=== PATIENT | male | born 1935 | race Caucasian/White ===

== ENCOUNTER 2017-02-01 00:18 | Inpatient (IN) | payer OTHER ==
[~2017-02-01] VITALS: Ht 165.1 cm; Wt 75.2 kg
[2017-02-01] VITALS (9 sets, daily range): BP systolic 117–162; BP diastolic 53–87; PULSE 61–91; TEMP 36.3–37.1; O2SAT 91–97; Ht 165.1 cm; Wt 75.2 kg
[~2017-02-01 00:18] MED LIST: AMLO-114 PO; ASPI-461 PO; ATEN50TA PO; ATOR-54 PO; CITA10TA4 PO; CLOP1TAB15 PO; ENAL10TA PO; NITR0.4S UT
[2017-02-01 00:41] LABS: BASO % 0.5 %; BASO ABS # 0.04 K/uL (0-0.2); COMPLETE YES; EOS % 0.7 %; HEMATOCRIT 35.9 % (42-52); IG% 0.2 %; LYMPH ABS # 1.32 K/uL (1.2-3.4); MEAN CELL VOLUME 81.6 fL (80-100); MEAN CORPUSCULAR HEMOGLOBIN 25.2 pg (25-34); MEAN CORPUSCULAR HGB CONC 30.9 g/dl (32-36); MEAN PLATELET VOLUME 9.7 fL (7.4-10.4); MONO % 6.6 %; PLATELET COUNT 192 K/uL (130-400); WHITE BLOOD COUNT 8.24 K/uL (4.8-10.8)
[2017-02-01 00:45] LABS: ISTAT CREATININE 1.2 mg/dl (0.6-1.3); ISTAT HEMOGLOBIN 11.6 g/dl (14.0-18.0); ISTAT IONIZED CALCIUM 1.12 mmol/l (1.12-1.32)
[2017-02-01 00:52] LABS: INR 1.1 (0.9-1.1); PARTIAL THROMBOPLASTIN RATIO 1.1; PROTHROMBIN TIME (PATIENT) 11.9 SECONDS (9.0-12.0)
[2017-02-01] MEDS ORDERED: ONDANSETRON INJ 2 MG/ML 2 ML VIAL IV STA (00:56)
[2017-02-01 00:58] LABS: ALT/SGPT 17 U/L (12-78); AST/SGOT 12 U/L (15-37); BLOOD UREA NITROGEN 23 mg/dl (7-18); BUN/CREATININE RATIO 17.3 (10-20); CALCIUM 8.5 mg/dl (8.5-10.1); CARBON DIOXIDE 25 mmol/L (21-32); CHLORIDE 109 mmol/L (98-107); GLUCOSE 135 mg/dl (70-99); POTASSIUM 3.8 mmol/L (3.5-5.1); SODIUM 147 mmol/L (136-145)
[2017-02-01] MEDS ORDERED: FUROSEMIDE 40 MG/4 ML VIAL IV STA (01:00)
[2017-02-01] MEDS ORDERED: PANTOprazole INJ 80 MG in DEXTROSE 5% 100ML IV SCH (01:00)
[2017-02-01 01:04] LABS: ALKALINE PHOSPHATASE 216 U/L (45-117); CKMB/CK RATIO 0.3 (0-3.0)
[2017-02-01] MEDS ORDERED: FURO-85 PO (01:14)
[2017-02-01] MEDS ORDERED: PANTOprazole INJ 40 MG in DEXTROSE 5% 100ML IV SCH (01:15)
[2017-02-01] MEDS ORDERED: ESCI1TAB6 PO (01:17)
[2017-02-01] MEDS ORDERED: MECL1TAB42 PO (01:19)
[2017-02-01] MEDS ORDERED: ONDANSETRON INJ 2 MG/ML 2 ML VIAL IV PRN (02:00)
[2017-02-01] MEDS ORDERED: ACETAMINOPHEN 325 MG TAB PO PRN (02:00)
[2017-02-01] MEDS ORDERED: MECLIZINE HCL 25 MG TAB PO PRN (02:15)
--- NOTE | 2017-02-01 02:18 | History and Physical ---
History & Physical Date & Time of Service: Feb 01, 2017 at 02:06 Chief Complaint: Chest pain, Nausea/vomiting/stool with blood Primary Care Physician: Karson Alcala M.D. History of Present Illness Source: patient, clinic records 81 year old male with history of CAD s/p CABG in 1990, Atrial Fibrillation on Aspirin and Plavix, history of CVA, Cereberallar Hemorrhage presenting with hematemesis starting this evening. Follows with Dr. Alcala for Primary Care and Dr. Perea for Cardiology. Patient was apparently at his usual state of health until around 1130pm, while preparing to go to bed, patient had a sudden onset of epigastric pain followed by hematemesis, around 1 cup. Ambulance summoned and patient was brought to the ED. Also, he reports at least 1 week history of shortness of breath associated with chest pain on exertion. Denies dizziness, weakness, palpitations. No fever/ chills, coughs, sputum. At the ED, patient was hypoxic at 83% on room air. CXR showed bilateral pulmonary edema. He was given Lasix 40mg IV, and started on Protonix drip. On my exam, patient was resting, comfortable on 2 liters of nasal cannula. Denies active chest pain, dyspnea, nausea, abdominal pain. Had 1 recurrence of hematemesis at the ER. Past Medical/Surgical History Medical Problems: (1) Anxiety Status: Chronic (2) CAD (coronary artery disease) Status: Chronic (3) Carotid artery stenosis Status: Chronic (4) CVA (cerebral vascular accident) Status: Resolved (5) Diabetes Status: Chronic (6) HTN (hypertension) Status: Chronic (7) Hyperlipidemia Status: Chronic Surgical Problems: (1) Hx of CABG Status: Resolved Social History Problems: (1) Former smoker Status: Resolved Family History No significant family history Social History Smoking Status: Former Smoker Drug Use: none Marital Status: Housing status: lives alone Occupational Status: retired Immunizations History of Influenza Vaccine: Yes Influenza Vaccine Date: Sep 30, 2014 History of Tetanus Vaccine?: Yes Tetanus Immunization Date: Jun 26, 2008 History of Pneumococcal: Yes Pneumococcal Date: Sep 25, 2006 Multi-Drug Resistant Organisms History of MDRO: No Allergies Coded Allergies: No Known Allergies (Verified , 07/08/15) Home Medications Scheduled Amlodipine (Norvasc), 10 MG PO QAM Aspirin (Aspirin), 81 MG PO QAM Atenolol (Tenormin), 50 MG PO QAM Atorvastatin (Lipitor), 20 MG PO QAM Clopidogrel (Plavix), 75 MG PO QAM Escitalopram Oxalate (Lexapro), 5 MG PO DAILY Nitroglycerin (Nitrostat), 0.4 MG UT PRN Scheduled PRN Furosemide (Lasix), 20 MG PO DAILY PRN for WIEGHT GAIN,FLUID ACCUMULATION Meclizine Hcl (Meclizine Hcl), 25 MG PO TID PRN for Dizziness or Vertigo Review of Systems Constitutional- no fever; no weight loss Eyes- no acute visual changes ENT- no sinus drainage; no pharyngitis Pulmonary- (+) as noted above Cardiac-(+) as noted above GI-(+) as noted above - no dysuria, no hematuria Musculoskeletal- no arthralgias, no myalgias Derm- no rashes, no new skin lesions, no changing skin lesions Hematologic- no unusual bruising, no unusual bleeding Lymphatics- no adenopathy Endocrine- no polyuria or polydipsia; no heat or cold intolerance Neuro- no headaches, no focal neurologic symptoms Psych- no anxiety, no depression Physical Exam Vital Signs Date Time Temp Pulse Resp B/P Pulse Ox O2 Delivery O2 Flow Rate FiO2 02/01/17 01:32 75 20 143/82 92 Nasal Cannula 3.0 02/01/17 00:40 76 02/01/17 00:28 96 Nasal Cannula 3.0 02/01/17 00:22 37.1 80 20 133/73 83 Room Air 02/01/17 00:22 83 Room Air General Appearance: WD/WN, no apparent distress Head: normocephalic, atraumatic Eyes: normal inspection, EOMI, sclerae normal ENT: normal ENT inspection, hearing grossly normal, pharynx normal Neck: supple, no adenopathy, thyroid normal, + JVD (mild) Respiratory/Chest: chest non-tender, no respiratory distress, no accessory muscle use, + rales (mild at the bases), + wheezing (mild bilaterally) Cardiovascular: + irregularly irregular Abdomen/GI: normal bowel sounds, non tender, soft Extremities/Musculoskelatal: no calf tenderness, normal capillary refill, normal range of motion, + pertinent finding (grade 1 lower leg edema) 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, no motor/sensory deficits, alert, normal mood/affect, normal reflexes, oriented x 3 Skin: normal color, warm/dry, no rash Diagnostics Laboratory Results Results Past 24 Hours Test 02/01/17 00:25 02/01/17 00:27 02/01/17 00:54 02/01/17 02:02 Range/Units White Blood Count 8.24 4.8-10.8 K/uL Red Blood Count 4.40 4.7-6.1 M/uL Hemoglobin 11.1 14.0-18.0 g/dL Hematocrit 35.9 42-52 % Mean Corpuscular Volume 81.6 80-100 fL Mean Corpuscular Hemoglobin 25.2 25-34 pg Mean Corpuscular Hemoglobin Concent 30.9 32-36 g/dl Platelet Count 192 130-400 K/uL Mean Platelet Volume 9.7 7.4-10.4 fL Neutrophils (%) (Auto) 76.0 % Lymphocytes (%) (Auto) 16.0 % Monocytes (%) (Auto) 6.6 % Eosinophils (%) (Auto) 0.7 % Basophils (%) (Auto) 0.5 % Neutrophils # (Auto) 6.26 1.4-6.5 K/uL Lymphocytes # (Auto) 1.32 1.2-3.4 K/uL Monocytes # (Auto) 0.54 0.11-0.59 K/uL Eosinophils # (Auto) 0.06 0-0.5 K/uL Basophils # (Auto) 0.04 0-0.2 K/uL RDW Standard Deviation 52.1 36.4-46.3 fL RDW Coefficient of Variation 17.4 11.5-14.5 % Immature Granulocyte % (Auto) 0.2 % Immature Granulocyte # (Auto) 0.02 0.00-0.02 K/uL Prothrombin Time 11.9 9.0-12.0 SECONDS Prothromb Time International Ratio 1.1 0.9-1.1 Activated Partial Thromboplast Time 27.5 21.0-31.0 SECONDS Partial Thromboplastin Ratio 1.1 Sodium Level 147 136-145 mmol/L Potassium Level 3.8 3.5-5.1 mmol/L Chloride Level 109 98-107 mmol/L Carbon Dioxide Level 25 21-32 mmol/L Anion Gap 13.0 17.0 16-25 mmol/L Blood Urea Nitrogen 23 7-18 mg/dl Creatinine 1.30 0.60-1.40 mg/dl Estimated GFR () 59.3 Estimated GFR (Non- 51.2 BUN/Creatinine Ratio 17.3 10-20 Random Glucose 135 70-99 mg/dl Calcium Level 8.5 8.5-10.1 mg/dl Total Bilirubin 1.1 0.2-1 mg/dl Direct Bilirubin 0.3 0-0.2 mg/dl Aspartate Amino Transf (AST/SGOT) 12 15-37 U/L Alanine Aminotransferase (ALT/SGPT) 17 12-78 U/L Alkaline Phosphatase 216 45-117 U/L Total Creatine Kinase 672 39-308 U/L Creatine Kinase MB 2.1 0.5-3.6 ng/ml Creatine Kinase MB Ratio 0.3 0-3.0 Troponin I < 0.015 0-0.045 ng/ml Total Protein 7.4 6.4-8.2 gm/dl Albumin 3.5 3.4-5.0 gm/dl Lipase 85 73-393 U/L Bedside Hemoglobin 11.6 14.0-18.0 g/dl Bedside Hematocrit 34 42-52 % Bedside Sodium 145 135-144 mEq/L Bedside Potassium 3.8 3.3-5.0 mEq/L Bedside Chloride 108 101-112 mEq/L Bedside Total CO2 25 24-31 mEq/l Bedside Blood Urea Nitrogen 23 7-18 mg/dl Bedside Creatinine 1.2 0.6-1.3 mg/dl Bedside Glucose (other) 143 70-99 mg/dl Bedside Ionized Calcium (Gayle) 1.12 1.12-1.32 mmol/l Bedside Lactic Acid Venous 0.97 0.90-1.70 mmol/L Microbiology Results 02/01/17 Blood Culture, Received Pending 02/01/17 Blood Culture, Received Pending Diagnostic Radiology cxr: bilateral pulmonary edema Impression Assessment and Plan 81 year old male with history of CAD s/p CABG in 1990, Atrial Fibrillation on Aspirin and Plavix, history of CVA, Cereberallar Hemorrhage presenting with hematemesis starting this evening. UPPER GI BLEED - no previous history - on Aspirin, Plavix - NPO, Protonix Drip, monitor H&H q6h no IV fluids as patient has pulmonary edema - GI consulted ACUTE HYPOXIC RESPIRATORY FAILURE SECONDARY TO PULMONARY EDEMA LIKELY CHF - Lasix 40mg IV given at the ER - Echo cardiac markers - nebs - titrate Lasix - Cardiology consulted HISTORY OF ATRIAL FIBRILLATION - not on anticoagulation due to history of cerebellar hemorrhage/CVA - HR controlled - continue Atenolol HISTORY OF CAD - echo, cardiac markers - HOLD Aspirin, Plavix due to GI bleed HYPERTENSION - hold Amlodipine for now HISTORY OF CVA/CEREBELLAR HEMORRHAGE DVT prophylaxis anticoagulation contraindicated SCDs when leg edema improves Code Status Full code as per patient Disposition lives alone at home PT/OT when able VTE Prophylaxis VTE Risk Assessment Done? Y/N: Yes Risk Level: Moderate
[2017-02-01] MEDS ORDERED: LEVALBUTEROL/IPRATROPIUM NEB INH SCH (02:30)
[2017-02-01] MEDS: IPRATROPIUM BROMIDE NEB SOLN 0.02% 2.5 ML VIAL INH SCH ×3 (03:00→19:20)
[2017-02-01] MEDS: LEVALBUTEROL 1.25MG/0.5ML NEB INH SCH ×3 (03:00→19:20)
--- NOTE | 2017-02-01 04:03 | EMERGENCY ROOM VISIT NOTE ---
History Report prepared by Pumaibcynthia: Jordan Pozo Under the Supervision of: Dr. Ottoniel Mccain M.D. First contact with patient: 00:22 Chief Complaint: CHEST PAIN Stated Complaint: Chest pain, Nausea/vomiting/stool with blood History of Present Illness The patient is an 81 year old male who presents to the Emergency Room with complaints of waxing & waning chest pain for the past week. The pain was worse earlier today, and is currently rated 3/10 in severity. The patient also complains of shortness of breath, nausea and vomiting that started tonight. The patient notes that he has had bright red blood in his stools for three weeks. He denies increased swelling of his legs from baseline. The patient had nitroglycerin and aspirin en route to the ED. He has a history of atrial fibrillation for which he is on Plavix. He is s/p CABG in 1990 and had an NSTEMI in 2014. The patient does not normally wear oxygen at home. He denies any recent falls or trauma. Source of History: patient Onset: one week Position: chest Symptom Intensity: 3/10 Timing: waxes/wanes Associated Symptoms: + SOB, + hematochezia, + nausea, + vomiting Review of Systems See HPI for pertinent positives & negatives. A total of 10 systems reviewed and were otherwise negative. Past Medical & Surgical Medical Problems: (1) Anxiety (2) CAD (coronary artery disease) (3) Carotid artery stenosis (4) CHF (congestive heart failure) (5) CVA (cerebral vascular accident) (6) Diabetes (7) HTN (hypertension) (8) Hyperlipidemia Surgical Problems: (1) Hx of CABG Social History Problems: (1) Former smoker Family History No significant family history Social History Smoking Status: Former Smoker Drug Use: none Marital Status: Occupation Status: retired Current/Historical Medications Scheduled Amlodipine (Norvasc), 10 MG PO QAM Aspirin (Aspirin), 81 MG PO QAM Atenolol (Tenormin), 50 MG PO QAM Atorvastatin (Lipitor), 20 MG PO QAM Clopidogrel (Plavix), 75 MG PO QAM Escitalopram Oxalate (Lexapro), 5 MG PO DAILY Nitroglycerin (Nitrostat), 0.4 MG UT PRN Scheduled PRN Furosemide (Lasix), 20 MG PO DAILY PRN for WIEGHT GAIN,FLUID ACCUMULATION Meclizine Hcl (Meclizine Hcl), 25 MG PO TID PRN for Dizziness or Vertigo Allergies Coded Allergies: No Known Allergies (Verified , 07/08/15) Physical Exam Vital Signs Date Time Temp Pulse Resp B/P Pulse Ox O2 Delivery O2 Flow Rate FiO2 02/01/17 01:32 75 20 143/82 92 Nasal Cannula 3.0 02/01/17 00:40 76 02/01/17 00:28 96 Nasal Cannula 3.0 02/01/17 00:22 37.1 80 20 133/73 83 Room Air 02/01/17 00:22 83 Room Air Physical Exam GENERAL: Patient is ill appearing and in minimal distress. HEENT: No acute trauma, normocephalic atraumatic, mucous membranes moist, no nasal congestion, no scleral icterus. Pale conjunctiva. NECK: No stridor, no adenopathy, no meningismus, trachea is midline. LUNGS: Dyspneic, crackles with decreased breath sounds in the bilateral lower lobes, mild wheezing in both upper lobes. HEART: Irregular rhythm with a faint systolic murmur. ABDOMEN: Soft, nontender, bowel sounds positive,no peritonitis. Old scar with a ventral hernia noted. BACK: No midline tenderness, no CVA tenderness EXTREMITIES: Normal motion all extremities, no cyanosis. Pitting edema of the bilateral lower legs. NEUROLOGIC: Alert and oriented, no acute motor or sensory deficits, no focal weakness, cranial nerves grossly intact. SKIN: No rash, no jaundice, no diaphoresis. RECTAL: Black stool heme positive. Medical Decision & Procedures ER Provider Diagnostic Interpretation: X ray results are stated below per my interpretation. CHEST ONE VIEW PORTABLE: Bilateral pulmonary edema with bilateral pleural effusions, new from previous chest X-ray. Laboratory Results 02/01/17 00:25 Red Blood Count 4.40, Mean Corpuscular Volume 81.6, Mean Corpuscular Hemoglobin 25.2, Mean Corpuscular Hemoglobin Concent 30.9, Mean Platelet Volume 9.7, Neutrophils (%) (Auto) 76.0, Lymphocytes (%) (Auto) 16.0, Monocytes (%) (Auto) 6.6, Eosinophils (%) (Auto) 0.7, Basophils (%) (Auto) 0.5, Neutrophils # (Auto) 6.26, Lymphocytes # (Auto) 1.32, Monocytes # (Auto) 0.54, Eosinophils # (Auto) 0.06, Basophils # (Auto) 0.04 02/01/17 00:25 Test 02/01/17 00:25 02/01/17 00:27 02/01/17 00:54 White Blood Count 8.24 K/uL (4.8-10.8) Red Blood Count 4.40 M/uL (4.7-6.1) Hemoglobin 11.1 g/dL (14.0-18.0) Hematocrit 35.9 % (42-52) Mean Corpuscular Volume 81.6 fL (80-100) Mean Corpuscular Hemoglobin 25.2 pg (25-34) Mean Corpuscular Hemoglobin Concent 30.9 g/dl (32-36) Platelet Count 192 K/uL (130-400) Mean Platelet Volume 9.7 fL (7.4-10.4) Neutrophils (%) (Auto) 76.0 % Lymphocytes (%) (Auto) 16.0 % Monocytes (%) (Auto) 6.6 % Eosinophils (%) (Auto) 0.7 % Basophils (%) (Auto) 0.5 % Neutrophils # (Auto) 6.26 K/uL (1.4-6.5) Lymphocytes # (Auto) 1.32 K/uL (1.2-3.4) Monocytes # (Auto) 0.54 K/uL (0.11-0.59) Eosinophils # (Auto) 0.06 K/uL (0-0.5) Basophils # (Auto) 0.04 K/uL (0-0.2) RDW Standard Deviation 52.1 fL (36.4-46.3) RDW Coefficient of Variation 17.4 % (11.5-14.5) Immature Granulocyte % (Auto) 0.2 % Immature Granulocyte # (Auto) 0.02 K/uL (0.00-0.02) Prothrombin Time 11.9 SECONDS (9.0-12.0) Prothromb Time International Ratio 1.1 (0.9-1.1) Activated Partial Thromboplast Time 27.5 SECONDS (21.0-31.0) Partial Thromboplastin Ratio 1.1 Estimated GFR () 59.3 Estimated GFR (Non- 51.2 BUN/Creatinine Ratio 17.3 (10-20) Calcium Level 8.5 mg/dl (8.5-10.1) Total Bilirubin 1.1 mg/dl (0.2-1) Direct Bilirubin 0.3 mg/dl (0-0.2) Aspartate Amino Transf (AST/SGOT) 12 U/L (15-37) Alanine Aminotransferase (ALT/SGPT) 17 U/L (12-78) Alkaline Phosphatase 216 U/L (45-117) Total Creatine Kinase 672 U/L (39-308) Creatine Kinase MB 2.1 ng/ml (0.5-3.6) Creatine Kinase MB Ratio 0.3 (0-3.0) Troponin I < 0.015 ng/ml (0-0.045) Pro-B-Type Natriuretic Peptide 7061 pg/ml (0-1800) Total Protein 7.4 gm/dl (6.4-8.2) Albumin 3.5 gm/dl (3.4-5.0) Lipase 85 U/L (73-393) Bedside Hemoglobin 11.6 g/dl (14.0-18.0) Bedside Hematocrit 34 % (42-52) Bedside Sodium 145 mEq/L (135-144) Bedside Potassium 3.8 mEq/L (3.3-5.0) Bedside Chloride 108 mEq/L (101-112) Bedside Total CO2 25 mEq/l (24-31) Anion Gap 17.0 mmol/L (16-25) Bedside Blood Urea Nitrogen 23 mg/dl (7-18) Bedside Creatinine 1.2 mg/dl (0.6-1.3) Bedside Glucose (other) 143 mg/dl (70-99) Bedside Ionized Calcium (Gayle) 1.12 mmol/l (1.12-1.32) Bedside Lactic Acid Venous 0.97 mmol/L (0.90-1.70) Laboratory results as reviewed by me. Medications Administered Medications (Trade) Dose Ordered Sig/Nathen Route Start Time Stop Time Status Last Admin Dose Admin Pantoprazole Sodium 80 mg/ Dextrose 120 ml @ 480 mls/hr TODAY@0100 IV 02/01/17 01:00 02/01/17 01:14 DC 02/01/17 01:05 480 MLS/HR Pantoprazole Sodium/Dextrose (Protonix Inj/D5 100ml) 100 ml @ 20 mls/hr Q5H IV 02/01/17 01:15 02/01/17 06:14 02/01/17 01:05 20 MLS/HR Ondansetron HCl (Zofran Inj) 4 mg NOW STAT IV 02/01/17 00:56 02/01/17 00:57 DC 02/01/17 01:05 4 MG Furosemide (Lasix Inj) 40 mg NOW STAT IV 02/01/17 01:00 02/01/17 01:01 DC 02/01/17 01:05 40 MG ECG Indication: chest pain Rate (beats per minute): 75 Rhythm: atrial fibrillation Findings: other (very poor baseline secondary to pateint dyspnea. Non-specific ST depressions. No STEMI appreciated.) ED Course 0024: The patient was evaluated in room A12b. A complete history and physical exam was performed. 0056: Zofran 4 mg IV. 0100: Lasix 40 mg IV, Protonix 80 mg / dextrose 120 ml @ 480 mls/hr. 0115: Protonix 40 mg / dextrose 100 mls @ 20 mls/hr. 0125: Spoke with Dr. Osman [facility]. The patient will be evaluated. Medical Decision Differential: Cardiac Ischemia (STEMI, NSTEMI, Unstable Angina, etc), Aortic Dissection, Arrhythmia, Pulmonary Embolism, Pneumonia, Pneumothorax, MSK, Infectious, Pericarditis/Myocarditis, Esophageal Rupture, Gastrointestinal, amongst other pathologies entertained. 81 yr old male arrives for chest pain/sob/generalized weakness. New onset Afib with rate under control. Vomited small amount bloody emesis on arrival with + Gi bleed from below. CXR with pulm edema. 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 Ill appearing though now feeling better. CXR with diffuse pulm edema and effusions. Suspect recent Afib causing acute CHF, leading to hypoxia. Doing well on NC. Lasix given. Suspect stress lead to GI bleed as not acutely anemic thus I do not feel that is cause of CHF. Will start Protonix gtt as this is upper gi source. No clear evidence this is infection, but blood cultures obtained in case. Stable and breathing comfortably at time of bringing in. Consults Time Called: 0120 [facility]: [phone]: Spoke with Dr. Osman [facility] Hospitalist. The patient will be evaluated. Impression Primary Impression: Pulmonary edema Additional Impressions: Hypoxia Pleural effusion Upper GI bleed Atrial fibrillation Scribe Attestation The scribe's documentation has been prepared under my direction and personally reviewed by me in its entirety. I confirm that the note above accurately reflects all work, treatment, procedures, and medical decision making performed by me. Departure Information Dispostion Being Evaluated By Hospitalist Referrals Karson Alcala M.D. (PCP) Patient Instructions My [facility] Problem Qualifiers Primary Impression: Pulmonary edema Chronicity: acute Qualified Codes: J81.0 - Acute pulmonary edema Additional Impressions: Atrial fibrillation Atrial fibrillation type: paroxysmal Qualified Codes: I48.0 - Paroxysmal atrial fibrillation
[2017-02-01] MEDS: PANTOprazole INJ 40 MG in DEXTROSE 5% 100ML IV SCH ×4 (05:40→21:09)
--- NOTE | 2017-02-01 06:48 | DIAGNOSTIC IMAGING REPORT ---
CHEST ONE VIEW PORTABLE CLINICAL HISTORY: Chest Pain dyspnea COMPARISON STUDY: 07/09/2015 FINDINGS: Moderate cardiomegaly. Bilateral pleural effusions. Comment pulmonary vasculature. IMPRESSION: Congestive heart failure Electronically signed by: Keyshawn Unger M.D. 02/01/2017 6:46 AM Dictated Date/Time: 02/01/2017 6:46 AM
[2017-02-01 06:52] LABS: BASO % 0.5 %; BASO ABS # 0.04 K/uL (0-0.2); COMPLETE YES; EOS % 0.1 %; HEMATOCRIT 34.3 % (42-52); IG% 0.1 %; LYMPH % 12.8 %; LYMPH ABS # 1.12 K/uL (1.2-3.4); MEAN CELL VOLUME 82.1 fL (80-100); MEAN CORPUSCULAR HEMOGLOBIN 24.9 pg (25-34); MEAN CORPUSCULAR HGB CONC 30.3 g/dl (32-36); MEAN PLATELET VOLUME 9.4 fL (7.4-10.4); MONO % 13.9 %; NEUT % 72.6 %; PLATELET COUNT 165 K/uL (130-400); RED BLOOD COUNT 4.18 M/uL (4.7-6.1); WHITE BLOOD COUNT 8.73 K/uL (4.8-10.8)
[2017-02-01 07:26] LABS: BLOOD UREA NITROGEN 24 mg/dl (7-18); BUN/CREATININE RATIO 17.4 (10-20); CALCIUM 8.4 mg/dl (8.5-10.1); CARBON DIOXIDE 26 mmol/L (21-32); CHLORIDE 110 mmol/L (98-107); GLUCOSE 118 mg/dl (70-99); MAGNESIUM 2.5 mg/dl (1.8-2.4); POTASSIUM 3.7 mmol/L (3.5-5.1); SODIUM 146 mmol/L (136-145)
[2017-02-01 07:31] LABS: CKMB/CK RATIO 0.3 (0-3.0)
[2017-02-01] MEDS: ESCITALOPRAM OXALATE 10 MG TAB PO SCH (08:15)
--- NOTE | 2017-02-01 10:21 | Gastrointestinal Consultation ---
Gastrointestinal Consultation Date of Consultation: Feb 01, 2017 Attending Physician: Michele Chacon Consulting Physician: Shabbir Watts Reason for Consultation: Hematemesis History of Present Illness Patient is a 81 year old male w PMHx of CAD s/p CABG in 1990, Afib on ASA and Plavix, CVA who presented to ED w c/o hematemesis yesterday evening for about 1 cupful. Pt had been c/o pain in his esophagus x 1 week, epigastric pain, along w SOB and CP on exertion. He also noted associated odynophagia but no dysphagia. He notes some weight loss given his odynophagia. Denies any abd pain , dark tarry stools though he notes intermittent hematochezia which has been present for a while. Upon evaluation in ED, labs showed H/H of 1135. His Hgb had been at 10-12 for since 2014. Last normal Hgb was in 2007 - . He did have another episode of hematemesis in ED but none since then. He had been made NPO, given PPI bolus and gtt. His BNP was noted to be elevated at 7061. CXR showed congestive heart failure. He had been given Lasix 40mg IV on admission. He is currently on O2 4L NC. Pt denies any NSAIDs uses, denies also tobacco or ETOH uses. He never had EGD, reports had colonoscopy >10 yrs ago at [facility] but I did not see this on his records. He would be willing to have EGD evaluation but reluctant to have colonoscopy unless absolutely necessary. Past Medical/Surgical History Medical Problems: (1) Atrial fibrillation Status: Acute (2) Hypoxia Status: Acute (3) Pleural effusion Status: Acute (4) Pulmonary edema Status: Acute (5) Upper GI bleed Status: Acute Past Medical History: See above; carotid artery stenosis, anxiety, DM, HTN, hyperlipidemia Past Surgical History: CABG Family History No significant family history Social History Smoking Status: Former Smoker Alcohol Use: none Drug Use: none Marital Status: Occupation Status: retired Allergies Coded Allergies: No Known Allergies (Verified , 07/08/15) Current Medications Home Meds and Scripts Medications Dose Route/Sig Max Daily Dose Days Date Category Dose Instructions Meclizine Hcl 25 Mg Tab 25 Mg PO TID PRN 02/01/17 Reported Lexapro (Escitalopram Oxalate) 5 Mg Tab 5 Mg PO DAILY 3/9/17 Reported Lasix (Furosemide) 20 Mg Tab 20 Mg PO DAILY PRN 02/01/17 Reported Plavix (Clopidogrel Bisulfate) 75 Mg Tab 75 Mg PO QAM 06/30/15 Reported Norvasc (Amlodipine Besylate) 10 Mg Tab 10 Mg PO QAM 06/30/15 Reported Nitrostat (Nitroglycerin) 0.4 Mg Sub 0.4 Mg UT PRN 12/31/14 Reported NEEDED FOR CHEST PAIN : ONE TAB UNDER THE TONGUE EVRY 5 MINUTES UP TO 3 DOSES. Lipitor (Atorvastatin) 20 Mg Tab 20 Mg PO QAM 12/31/14 Reported Tenormin (Atenolol) 50 Mg Tab 50 Mg PO QAM 12/31/14 Reported Aspirin 81 Mg Tab 81 Mg PO QAM 12/31/14 Reported Review of Systems Constitutional: No chills, No fever ENT: + pain on swallowing, + problem reported, + see HPI, No trouble swallowing Respiratory: + dyspnea on exertion, + shortness of breath, No cough Cardiac: No chest pain, No edema Abdomen: + GI bleeding, + nausea, + pain (epigastric, ), + see HPI, + vomiting Physical Exam Date Time Temp Pulse Resp B/P Pulse Ox O2 Delivery O2 Flow Rate FiO2 02/01/17 08:00 Nasal Cannula 02/01/17 07:54 36.8 76 20 117/71 92 3.0 02/01/17 07:43 91 12 93 Nasal Cannula 3.0 02/01/17 04:00 Nasal Cannula 4.0 02/01/17 03:48 36.3 74 22 146/76 91 Nasal Cannula 4.0 02/01/17 02:45 36.9 79 20 148/87 93 Nasal Cannula 4.0 02/01/17 01:32 75 20 143/82 92 Nasal Cannula 3.0 02/01/17 00:40 76 02/01/17 00:28 96 Nasal Cannula 3.0 02/01/17 00:22 37.1 80 20 133/73 83 Room Air 02/01/17 00:22 83 Room Air General Appearance: WD/WN, no apparent distress Eyes: normal inspection, PERRL, EOMI Neck: supple, no JVD, trachea midline Respiratory/Chest: no respiratory distress, no accessory muscle use, + decreased breath sounds Cardiovascular: regular rate, rhythm, no gallop, no murmur Abdomen: normal bowel sounds, non tender, soft Extremities: normal inspection, no pedal edema, no calf tenderness Neurologic/Psych: alert, normal mood/affect, oriented x 3 Skin: normal color, no jaundice, no rash Laboratory Results Last 24 Hours Test 02/01/17 00:25 02/01/17 00:27 02/01/17 00:54 02/01/17 06:30 White Blood Count 8.24 K/uL 8.73 K/uL Red Blood Count 4.40 M/uL 4.18 M/uL Hemoglobin 11.1 g/dL 10.4 g/dL Hematocrit 35.9 % 34.3 % Mean Corpuscular Volume 81.6 fL 82.1 fL Mean Corpuscular Hemoglobin 25.2 pg 24.9 pg Mean Corpuscular Hemoglobin Concent 30.9 g/dl 30.3 g/dl Platelet Count 192 K/uL 165 K/uL Mean Platelet Volume 9.7 fL 9.4 fL Neutrophils (%) (Auto) 76.0 % 72.6 % Lymphocytes (%) (Auto) 16.0 % 12.8 % Monocytes (%) (Auto) 6.6 % 13.9 % Eosinophils (%) (Auto) 0.7 % 0.1 % Basophils (%) (Auto) 0.5 % 0.5 % Neutrophils # (Auto) 6.26 K/uL 6.34 K/uL Lymphocytes # (Auto) 1.32 K/uL 1.12 K/uL Monocytes # (Auto) 0.54 K/uL 1.21 K/uL Eosinophils # (Auto) 0.06 K/uL 0.01 K/uL Basophils # (Auto) 0.04 K/uL 0.04 K/uL RDW Standard Deviation 52.1 fL 52.7 fL RDW Coefficient of Variation 17.4 % 17.6 % Immature Granulocyte % (Auto) 0.2 % 0.1 % Immature Granulocyte # (Auto) 0.02 K/uL 0.01 K/uL Prothrombin Time 11.9 SECONDS Prothromb Time International Ratio 1.1 Activated Partial Thromboplast Time 27.5 SECONDS Partial Thromboplastin Ratio 1.1 Sodium Level 147 mmol/L 146 mmol/L Potassium Level 3.8 mmol/L 3.7 mmol/L Chloride Level 109 mmol/L 110 mmol/L Carbon Dioxide Level 25 mmol/L 26 mmol/L Anion Gap 13.0 mmol/L 17.0 mmol/L 10.0 mmol/L Blood Urea Nitrogen 23 mg/dl 24 mg/dl Creatinine 1.30 mg/dl 1.40 mg/dl Estimated GFR () 59.3 54.2 Estimated GFR (Non- 51.2 46.8 BUN/Creatinine Ratio 17.3 17.4 Random Glucose 135 mg/dl 118 mg/dl Calcium Level 8.5 mg/dl 8.4 mg/dl Total Bilirubin 1.1 mg/dl Direct Bilirubin 0.3 mg/dl Aspartate Amino Transf (AST/SGOT) 12 U/L Alanine Aminotransferase (ALT/SGPT) 17 U/L Alkaline Phosphatase 216 U/L Total Creatine Kinase 672 U/L 616 U/L Creatine Kinase MB 2.1 ng/ml 2.1 ng/ml Creatine Kinase MB Ratio 0.3 0.3 Troponin I < 0.015 ng/ml < 0.015 ng/ml Pro-B-Type Natriuretic Peptide 7061 pg/ml Total Protein 7.4 gm/dl Albumin 3.5 gm/dl Lipase 85 U/L Bedside Hemoglobin 11.6 g/dl Bedside Hematocrit 34 % Bedside Sodium 145 mEq/L Bedside Potassium 3.8 mEq/L Bedside Chloride 108 mEq/L Bedside Total CO2 25 mEq/l Bedside Blood Urea Nitrogen 23 mg/dl Bedside Creatinine 1.2 mg/dl Bedside Glucose (other) 143 mg/dl Bedside Ionized Calcium (Gayle) 1.12 mmol/l Bedside Lactic Acid Venous 0.97 mmol/L Est Creatinine Clear Calc Drug Dose 39.8 ml/min Magnesium Level 2.5 mg/dl Impression Patient is a 81 year old male currently admitted for CHF and hematemesis. Hgb around 11 which is his baseline since 2014. He had been having pain along his esophagus, epigastric area for a week associated also w odynophagia, nausea but no dysphagia. Plan - OK for CL diet; Keep NPO after midnight for possible EGD tomorrow AM ( awaiting Cards eval and management of CHF). - PPI gtt - Labs ordered to workup anemia - CHF management per primary team & Cardiology. ATTESTATION: I have performed a history and physical examination of this patient and reviewed the electronic record. Specifically, on physical examination there are no rales at present, abdominal examination is benign. I have discussed the case with PAYTON Winters. The above note reflects my findings, conclusions, and recommendations. Shabbir Watts MD
--- NOTE | 2017-02-01 11:12 | Progress Note ---
Medicine Progress Note Date & Time of Visit: Feb 01, 2017 at 10:28. (Mar Delatorre PA-C) Subjective Patient seen and examined. Pt was admitted overnight for UGIB and acute hypoxic resp failure secondary to pulm edema. 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 Reports total approx 5 episodes. Last episode was in ER last night. No further hematemesis. He reports associated burning from epigastrium radiating up the chest for past few days. He reports recent odynophagia, poor appetite, weight loss (unclear amount). He also reports intermittent trace of bright red blood per rectum on toilet tissue x 2 weeks. Last episode 2 days ago with soft formed brown stool. He reports associated generalized weakness and fatigue. Pt reports dry cough for 1 month. He reports increased KELLY x 1 month when walking to get the mail. He was started on furosemide 10 mg daily back in Nov 2016 when c/o SOB/cough/orthopnea and found to have small pleural effusions on CXR. He reports mild BLLE edema unchanged from baseline. He repots ongoing urinary frequency, nocturia every hour during the night, sensation of incomplete bladder emptying. He denies fever , chills, dizziness, syncope, nasal congestion, SOB at rest, orthopnea, diarrhea , constipation. Denies prior hx of GIB. Pt reports remote colonoscopy but unsure of results. Denies prior EGD. (Mar Delatorre PA-C) No episode of hematemesis so far.SOB is gradually improving. No other new systemic symptoms (Michele Chacon MD) Objective Last 8 Hrs Date Time Temp Pulse Resp B/P Pulse Ox O2 Delivery O2 Flow Rate FiO2 02/01/17 08:00 Nasal Cannula 02/01/17 07:54 36.8 76 20 117/71 92 3.0 02/01/17 07:43 91 12 93 Nasal Cannula 3.0 02/01/17 04:00 Nasal Cannula 4.0 02/01/17 03:48 36.3 74 22 146/76 91 Nasal Cannula 4.0 02/01/17 02:45 36.9 79 20 148/87 93 Nasal Cannula 4.0 Physical Exam: General-pleasant alert elderly male, not in distress Eyes-anicteric ENT-pharynx normal Neck-supple, trachea midline, no JVD Lungs-CTA bilaterally, no respiratory distress Heart-RRR, no murmur Abdomen-soft nontender, normal BS Extremities-trace pretibial edema BLLE Neuro-alert and oriented, normal affect, grossly nonfocal Laboratory Results: Last 24 Hours Test 02/01/17 00:25 02/01/17 00:27 02/01/17 00:54 02/01/17 06:30 White Blood Count 8.24 K/uL 8.73 K/uL Red Blood Count 4.40 M/uL 4.18 M/uL Hemoglobin 11.1 g/dL 10.4 g/dL Hematocrit 35.9 % 34.3 % Mean Corpuscular Volume 81.6 fL 82.1 fL Mean Corpuscular Hemoglobin 25.2 pg 24.9 pg Mean Corpuscular Hemoglobin Concent 30.9 g/dl 30.3 g/dl Platelet Count 192 K/uL 165 K/uL Mean Platelet Volume 9.7 fL 9.4 fL Neutrophils (%) (Auto) 76.0 % 72.6 % Lymphocytes (%) (Auto) 16.0 % 12.8 % Monocytes (%) (Auto) 6.6 % 13.9 % Eosinophils (%) (Auto) 0.7 % 0.1 % Basophils (%) (Auto) 0.5 % 0.5 % Neutrophils # (Auto) 6.26 K/uL 6.34 K/uL Lymphocytes # (Auto) 1.32 K/uL 1.12 K/uL Monocytes # (Auto) 0.54 K/uL 1.21 K/uL Eosinophils # (Auto) 0.06 K/uL 0.01 K/uL Basophils # (Auto) 0.04 K/uL 0.04 K/uL RDW Standard Deviation 52.1 fL 52.7 fL RDW Coefficient of Variation 17.4 % 17.6 % Immature Granulocyte % (Auto) 0.2 % 0.1 % Immature Granulocyte # (Auto) 0.02 K/uL 0.01 K/uL Prothrombin Time 11.9 SECONDS Prothromb Time International Ratio 1.1 Activated Partial Thromboplast Time 27.5 SECONDS Partial Thromboplastin Ratio 1.1 Sodium Level 147 mmol/L 146 mmol/L Potassium Level 3.8 mmol/L 3.7 mmol/L Chloride Level 109 mmol/L 110 mmol/L Carbon Dioxide Level 25 mmol/L 26 mmol/L Anion Gap 13.0 mmol/L 17.0 mmol/L 10.0 mmol/L Blood Urea Nitrogen 23 mg/dl 24 mg/dl Creatinine 1.30 mg/dl 1.40 mg/dl Estimated GFR () 59.3 54.2 Estimated GFR (Non- 51.2 46.8 BUN/Creatinine Ratio 17.3 17.4 Random Glucose 135 mg/dl 118 mg/dl Calcium Level 8.5 mg/dl 8.4 mg/dl Total Bilirubin 1.1 mg/dl Direct Bilirubin 0.3 mg/dl Aspartate Amino Transf (AST/SGOT) 12 U/L Alanine Aminotransferase (ALT/SGPT) 17 U/L Alkaline Phosphatase 216 U/L Total Creatine Kinase 672 U/L 616 U/L Creatine Kinase MB 2.1 ng/ml 2.1 ng/ml Creatine Kinase MB Ratio 0.3 0.3 Troponin I < 0.015 ng/ml < 0.015 ng/ml Pro-B-Type Natriuretic Peptide 7061 pg/ml Total Protein 7.4 gm/dl Albumin 3.5 gm/dl Lipase 85 U/L Bedside Hemoglobin 11.6 g/dl Bedside Hematocrit 34 % Bedside Sodium 145 mEq/L Bedside Potassium 3.8 mEq/L Bedside Chloride 108 mEq/L Bedside Total CO2 25 mEq/l Bedside Blood Urea Nitrogen 23 mg/dl Bedside Creatinine 1.2 mg/dl Bedside Glucose (other) 143 mg/dl Bedside Ionized Calcium (Gayle) 1.12 mmol/l Bedside Lactic Acid Venous 0.97 mmol/L Est Creatinine Clear Calc Drug Dose 39.8 ml/min Magnesium Level 2.5 mg/dl Test 02/01/17 10:05 Transferrin % Saturation % Date/Time Source Procedure Growth Status 02/01/17 01:00 Blood Blood Culture Pending Received 02/01/17 00:50 Blood Blood Culture Pending Received (Mar Delatorre PA-C) Assessment & Plan UPPER GI BLEED Hemodynamically stable; Hg 11.1-> 10.4 (baseline Hg approx 11-12) Aspirin and Plavix held On Protonix drip; not on IVF's due to pulmonary edema No further episodes after admission Monitor H/H q6; type and hold 2 units pRBC GI consulted; appreciate input May have clear liquid diet today NPO after midnight for EGD tomorrow ACUTE HYPOXIC RESPIRATORY FAILURE SECONDARY TO PULMONARY EDEMA LIKELY CHF BNP elevated to 7000; CXR showed congestive heart failure Prior echo 12/2014- EF 60-65%, grade I diastolic dysfunction Given dose of Lasix 40mg IV Echo pending Cardiac markers negative x 2 Nebs q6 Cardiology consulted- stable for EGD from cardiac standpoint Monitor daily weight and intake/output NOCTURIA/ FREQUENCY/ INCOMPLETE EMPTYING Check UA and post void bladder scan Mild hyperglycemia noted- check A1c HISTORY OF ATRIAL FIBRILLATION Not on 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 Chacon. Please see his addendum. Current Inpatient Medications: Current Inpatient Medications Medications (Trade) Dose Ordered Sig/Nathen Route Start Time Stop Time Status Last Admin Dose Admin Acetaminophen (Tylenol Tab) 650 mg Q4H PRN PO 02/01/17 02:00 03/03/17 01:59 Ondansetron HCl (Zofran Inj) 4 mg Q6H PRN IV 02/01/17 02:00 03/03/17 01:59 Atenolol (Tenormin Tab) 50 mg QAM PO 02/01/17 09:00 03/03/17 08:59 02/01/17 08:15 50 MG Escitalopram Oxalate (Lexapro Tab) 5 mg DAILY PO 02/01/17 09:00 03/03/17 08:59 02/01/17 08:15 5 MG Meclizine HCl 25 mg 25 mg TID PRN PO 02/01/17 02:15 03/03/17 02:14 Pantoprazole Sodium/Dextrose (Protonix Inj/D5 100ml) 100 ml @ 20 mls/hr Q5H IV 02/01/17 06:00 03/03/17 05:59 02/01/17 05:40 20 MLS/HR Ipratropium [place] (Atrovent 0.02% 0.5MG/2.5ML Neb) 0.5 mg Q6R INH 02/01/17 03:00 03/03/17 02:59 02/01/17 07:43 0.5 MG Levalbuterol (Xopenex 1.25MG/ 0.5ML Neb) 1.25 mg Q6R INH 02/01/17 03:00 03/03/17 02:59 02/01/17 07:43 1.25 MG (Mar Delatorre, KIKE) Continue monitoring H/H every 6 hourly. Type & Cross match for 2 units PRBC so they will be ready if need arises. Continue PPI Cardiology & GI inputs. Michele Chacon MD (Michele Chacon MD)
[2017-02-01 12:31] LABS: FERRITIN 48.2 ng/ml (8.0-388.0)
[2017-02-01 12:51] LABS: URINE APPEARANCE CLOUDY (CLEAR); URINE BILIRUBIN NEG (NEG); URINE COLOR YELLOW; URINE EPITHELIAL CELL AUTO >30 /lpf (0-5); URINE NITRITE NEG (NEG); URINE SPECIFIC GRAVITY 1.011 (1.000-1.030); UROBILINOGEN NEG (NEG); ZZUR CULT IF INDIC CLEAN CATCH NO
[2017-02-01 12:52] LABS: MANUAL MICROSCOPIC REQUIRED? NO; REVIEW REQ? YES
[2017-02-01 12:54] LABS: HEMATOCRIT 33.5 % (42-52)
--- NOTE | 2017-02-01 13:06 | ECHOCARDIOGRAM REPORT ---
*NOTICE TO RECEIVING [employer] This information is strictly Confidential and protected under [place] law. [place] law prohibits you from making any further disclosure of this information unless further disclosure is expressly permitted by the written consent of the person to whom it pertains or is authorized by law. A general authorization for the release of medical or other information is not sufficient for this purpose. Hospital accepts no responsibility if the information is made available to any other person, INCLUDING THE PATIENT. Interpretation Summary * Name: DENISE BRAGA Study Date: 02/01/2017 08:21 AM BP: 117/71 mmHg * Patient Location: C.2T\S\S241\S\2 HR: 67 * : 1935 (M/d/yyy) Gender: Male Height: 65 in * Age: 81 yrs Ethnicity: CA Weight: 172 lb * Ordering Physician: Rell Osman * Referring Physician: Self, Referred * Performed By: Deepika Awad RCS * * Reason For Study: R/O CHF * BSA: 1.9 m2 * -- Conclusions -- * The left ventricle is normal in size. * There is moderate concentric left ventricular hypertrophy. * The left ventricular wall motion is normal. * Ejection Fraction = 65-70%. * The left atrium is moderately dilated. * The right atrium is moderately dilated. * There is moderate to severe mitral regurgitation. * There is moderate to severe tricuspid regurgitation. * Right ventricular systolic pressure is elevated at 40-50mmHg. Procedure Details * A complete two-dimensional transthoracic echocardiogram was performed (2D, M-mode, Doppler and color flow Doppler). Left Ventricle * The left ventricle is normal in size. * There is moderate concentric left ventricular hypertrophy. * Left ventricular systolic function is normal. * Ejection Fraction = 65-70%. * The left ventricular wall motion is normal. Right Ventricle * The right ventricle is mildly dilated. * The right ventricular systolic function is normal. Atria * The left atrium is moderately dilated. * The right atrium is moderately dilated. * No ASD detected; PFO is not assessed. Mitral Valve * There is mild mitral annular calcification. * There is no mitral valve stenosis. * There is moderate to severe mitral regurgitation. Tricuspid Valve * The tricuspid valve anatomy is normal. * There is no tricuspid stenosis. * There is moderate to severe tricuspid regurgitation. * Right ventricular systolic pressure is elevated at 40-50mmHg. Aortic Valve * The aortic valve is trileaflet. * Aortic valve sclerosis moderate, without significant aortic valvular stenosis. * No hemodynamically significant valvular aortic stenosis. * No aortic regurgitation is present. Pulmonic Valve * The pulmonic valve is not well visualized. Great Vessels * The aortic root is normal size. Pericardium/Pleural * There is no pericardial effusion. Right Ventricle * The right ventricular wall motion is normal. Great Vessels * Normal inferior vena cava diameter and respiratory variation suggests normal central venous pressure. MMode 2D Measurements and Calculations IVSd 1.6 cm IVSs 2.0 cm LVIDd 4.0 cm LVIDs 2.5 cm LVPWd 1.6 cm LVPWs 1.5 cm IVS/LVPW 0.98 FS 37.0 % EDV(Teich) 70.2 ml ESV(Teich) 22.9 ml EF(Teich) 67.4 % EDV(cubed) 64.3 ml ESV(cubed) 16.1 ml EF(cubed) 74.9 % % IVS thick 26.5 % % LVPW thick -5.49 % LV mass(C)d 251.6 grams LV mass(C)dI 135.6 grams/m\S\2 LV mass(C)s 166.7 grams LV mass(C)sI 89.9 grams/m\S\2 SV(Teich) 47.3 ml SI(Teich) 25.5 ml/m\S\2 SV(cubed) 48.2 ml SI(cubed) 26.0 ml/m\S\2 LVOT diam 2.1 cm LVOT area 3.3 cm\S\2 LVAd ap4 26.4 cm\S\2 LVLd ap4 7.5 cm EDV(MOD-sp4) 73.2 ml EDV(sp4-el) 78.6 ml LVAs ap4 14.5 cm\S\2 LVLs ap4 5.7 cm ESV(MOD-sp4) 30.3 ml ESV(sp4-el) 31.5 ml EF(MOD-sp4) 58.7 % EF(sp4-el) 59.9 % LVAd ap2 30.7 cm\S\2 LVLd ap2 7.5 cm EDV(MOD-sp2) 105.1 ml EDV(sp2-el) 106.7 ml LVAs ap2 20.4 cm\S\2 LVLs ap2 6.6 cm ESV(MOD-sp2) 52.4 ml ESV(sp2-el) 54.0 ml EF(MOD-sp2) 50.1 % EF(sp2-el) 49.4 % LVLd %diff -0.20 % EDV(MOD-bp) 89.8 ml LVLs %diff 13.3 % ESV(MOD-bp) 41.4 ml EF(MOD-bp) 53.9 % SV(MOD-sp4) 42.9 ml SI(MOD-sp4) 23.1 ml/m\S\2 SV(MOD-sp2) 52.7 ml SI(MOD-sp2) 28.4 ml/m\S\2 SV(MOD-bp) 48.4 ml SI(MOD-bp) 26.1 ml/m\S\2 SV(sp4-el) 47.1 ml SI(sp4-el) 25.4 ml/m\S\2 SV(sp2-el) 52.7 ml SI(sp2-el) 28.4 ml/m\S\2 Doppler Measurements and Calculations MV E max sonya 130.5 cm/sec MV A max sonya 39.3 cm/sec MV E/A 3.3 MV P1/2t max sonya 127.6 cm/sec MV P1/2t 81.5 msec MVA(P1/2t) 2.7 cm\S\2 MV dec slope 458.7 cm/sec\S\2 MV dec time 0.20 sec Ao V2 max 168.7 cm/sec Ao max PG 11.4 mmHg Ao max PG (full) 7.0 mmHg JULIO C(V,A) 2.1 cm\S\2 JULIO C(V,D) 2.1 cm\S\2 LV V1 max PG 4.4 mmHg LV V1 max 104.8 cm/sec MR max sonya 442.7 cm/sec MR max PG 78.4 mmHg TR max sonya 321.0 cm/sec
[2017-02-01 13:29] LABS: CKMB/CK RATIO 0.5 (0-3.0)
[2017-02-01 13:30] LABS: ESTIMATED AVERAGE GLUCOSE 137 mg/dl; HA1C FLAG Normal (Normal)
--- NOTE | 2017-02-01 15:22 | CARDIOLOGY CONSULTATION ---
DATE OF CONSULTATION: 02/01/2017 DATE OF CONSULTATION: 02/01/2017. REFERRING: Mar Delatorre and Dr. Chacon. PRIMARY CARE PHYSICIAN: Dr. Alcala. INDICATIONS: Hematemesis and possible GI bleed, preprocedure evaluation, history of complex cardiac disease. HISTORY OF PRESENT ILLNESS: The patient is an 81-year-old male. His past medical history is notable for ischemic heart disease, status post coronary bypass grafting x3 in 1990, history of stable class 2 angina pectoris with past non-ST segment elevation myocardial infarction in December 2014 with medical management since and stable clinical history. He carries a history of as well for atherosclerotic peripheral vascular disease and is status post abdominal aortic aneurysm repair in 1998, history of right carotid endarterectomy in 2001, left carotid endarterectomy in June 2015 uncomplicated. He carries a history of past remote intracranial hemorrhage 1998 with slowed but intact mentation, history of hypertension, hyperlipidemia. The patient presents today noting approximately 1 week's history of burning sensation from epigastrium up to the throat with difficulty swallowing, eating and poor p.o. intake. On day of admission he had worsening symptoms of pain and discomfort followed by hematemesis, approximately 1 cup of bloody secretions. He subsequently presented for further evaluation. His underlying issues include preserved LV systolic function with moderate mitral and tricuspid insufficiency with recent symptoms of volume overload and mild congestive heart failure. He denies any pain other than as described burning and postprandial discomfort. Notes no syncope or near syncope. He was treated for an upper respiratory infection as well as had diuretics increased in November of 2016. Blood pressure has been controlled. He remains chronically in atrial fibrillation. He has not been anticoagulated due to past history of bleeding issues and marked gait instability. In the past he has been on MARTIN inhibitor although this was discontinued at one point in time due to transient renal insufficiency and hypotension. ALLERGIES: None. MEDICATIONS: Prior to hospitalization were amlodipine 10 mg q.a.m., aspirin 81 mg p.o. q.a.m., atenolol 50 mg q.a.m., atorvastatin 20 mg q.p.m., clopidogrel 75 mg q.a.m., Lexapro 5 mg q.p.m., furosemide 20 mg p.r.n. weight gain, fluid accumulation, meclizine p.r.n., nitroglycerin sublingual p.r.n. PAST SURGICAL HISTORY: As per HPI, is notable for remote coronary artery bypass grafting x3, bilateral carotid endarterectomy and abdominal aortic aneurysm repair in 1998. FAMILY HISTORY: Noncontributory. SOCIAL HISTORY: The patient is currently a resident of an extended care facility. He is a nonsmoker, nondrinker. PHYSICAL EXAMINATION: GENERAL: The patient is currently comfortable, was seen earlier with symptoms of severe abdominal and epigastric pain, now resolved. VITAL SIGNS: Heart rate is 60, blood pressure is 130/76. NECK: Thick. There is minimal jugular venous distention at 30 degrees. Overall skin pallor is present. LUNGS: Reveal mildly diminished breath sounds at the bases. CARDIOVASCULAR EXAMINATION: Irregularly irregular. Grade 1/6 systolic murmur. There is no diastolic murmur. ABDOMEN: Soft with mild tenderness in the epigastric region. EXTREMITIES: Without cyanosis or clubbing. There is trace pedal edema. DATA: Echocardiogram demonstrates moderate left ventricular hypertrophy with preserved LV systolic function, EF 65-70%. There is moderate to severe mitral and tricuspid insufficiency with indirect evidence of elevated pulmonary pressures. EKG reveals atrial fibrillation with poor tracing. No acute ST segment changes. LABORATORY STUDIES: On presentation, hemoglobin was 11.1, this morning is 10.2, platelet count 165. Sodium is 146, potassium is 3.7, chloride 110, bicarb 25, BUN is 24, creatinine is 1.4, glucose is 118. Troponins are negative x2 with elevated CPK. BNP is elevated at 7061. IMPRESSION: Complex 81-year-old male with underlying history of ischemic heart disease and prior remote coronary bypass grafting, stable class 2 angina pectoris, chronic atrial fibrillation, not on anticoagulation due to past concerns regarding bleeding and gait instability. He has suffered remote history of cerebral hemorrhage, presents now with epigastric and abdominal pain and hematemesis. Chest x-ray does demonstrate some increase in vascular markings consistent with congestive heart failure. Echocardiogram demonstrates preserved LV systolic function with moderate to severe mitral and tricuspid insufficiency. RECOMMENDATIONS: The patient received 40 mg IV metoprolol on presentation with historically good diuresis, though not documented. Will plan on using opportunity of inpatient management to switch to optimal medical therapies, discontinuing atenolol beginning on Toprol-XL 50 mg per day, reducing amlodipine to 5 mg per day and reinstituting low dose MARTIN inhibitor with lisinopril at 5 mg per day. Will follow patient as clinical course progresses and GI workup is completed. Would recommend proceeding to upper endoscopy as planned. Will review patient in the morning.
[2017-02-01 19:01] LABS: HEMATOCRIT 33.8 % (42-52)
[2017-02-02] VITALS (14 sets, daily range): BP systolic 123–165; BP diastolic 66–79; PULSE 52–78; TEMP 36.6–37.1; O2SAT 84–97
[2017-02-02 00:49] LABS: HEMATOCRIT 33.9 % (42-52)
[2017-02-02] MEDS: LEVALBUTEROL 1.25MG/0.5ML NEB INH SCH ×4 (02:10→19:38)
[2017-02-02] MEDS: IPRATROPIUM BROMIDE NEB SOLN 0.02% 2.5 ML VIAL INH SCH ×4 (02:10→19:38)
[2017-02-02] MEDS: PANTOprazole INJ 40 MG in DEXTROSE 5% 100ML IV SCH ×2 (02:43→07:51)
[2017-02-02 07:13] LABS: BASO % 0.9 %; BASO ABS # 0.06 K/uL (0-0.2); COMPLETE YES; EOS % 2.2 %; HEMATOCRIT 35.2 % (42-52); IG% 0.4 %; LYMPH % 24.8 %; LYMPH ABS # 1.66 K/uL (1.2-3.4); MEAN CELL VOLUME 82.1 fL (80-100); MEAN CORPUSCULAR HEMOGLOBIN 25.2 pg (25-34); MEAN CORPUSCULAR HGB CONC 30.7 g/dl (32-36); MEAN PLATELET VOLUME 9.7 fL (7.4-10.4); MONO % 12.8 %; NEUT % 58.9 %; PLATELET COUNT 165 K/uL (130-400); RED BLOOD COUNT 4.29 M/uL (4.7-6.1)
[2017-02-02 07:40] LABS: BUN/CREATININE RATIO 15.3 (10-20); CALCIUM 8.8 mg/dl (8.5-10.1); CREATININE 1.6 mg/dl (0.60-1.40); MAGNESIUM 2.5 mg/dl (1.8-2.4); POTASSIUM 3.8 mmol/L (3.5-5.1)
[2017-02-02] MEDS: METOPROLOL SUCC 50MG EXT REL TAB PO SCH (07:52)
[2017-02-02] MEDS: ESCITALOPRAM OXALATE 10 MG TAB PO SCH (07:52)
[2017-02-02] MEDS ORDERED: FUROSEMIDE INJ 20 MG in SYRINGE 0 ML IV SCH ×2 (09:00→14:00)
--- NOTE | 2017-02-02 09:33 | DIAGNOSTIC IMAGING REPORT ---
CHEST ONE VIEW PORTABLE CLINICAL HISTORY: Follow up CHF congestive failure COMPARISON STUDY: 02/01/2017 FINDINGS: Unchanged findings of congestive failure. Bilateral pleural effusions. IMPRESSION: Congestive failure unchanged from the prior study Electronically signed by: Keyshawn Unger M.D. 02/02/2017 9:32 AM Dictated Date/Time: 02/02/2017 9:31 AM
[2017-02-02] MEDS ORDERED: LIDOCAINE HCL 2% 2 ML VIAL (20MG/ML) ONE (10:41)
[2017-02-02] MEDS ORDERED: PROPOFOL IV EMULSION 10 MG/ML 20 ML VIAL IV ONE (10:41)
--- NOTE | 2017-02-02 10:43 | Progress Note ---
Medicine Progress Note Date & Time of Visit: Feb 02, 2017 at 10:05. (Mar Delatorre PA-C) Subjective Patient seen and examined. He states epigastric/ chest discomfort is resolved. No further episodes of hematemesis. No bowel movements in the hospital. He is not feeling SOB currently but has KELLY when ambulating to restroom. Still feels generally weak. No dizziness. States he is voiding well. Overnight patient got OOB and stated he was leaving the hospital. He was able to be redirected. On my exam he is aware and agreeable to treatment plan. This morning his O2 sat dropped to 84% while he was on room air after pulling off his oxygen. He is now saturating 92% on 2 liters. (Mar Delatorre PA-C) Patient is doing well. Lying in his bed comfortably. Noted above. Denies any chest pain/pressure. (Michele Chacon MD) Objective Last 8 Hrs Date Time Temp Pulse Resp B/P Pulse Ox O2 Delivery O2 Flow Rate FiO2 02/02/17 09:34 92 Nasal Cannula 2.0 02/02/17 08:10 36.6 78 18 165/79 97 02/02/17 08:00 Nasal Cannula 3.0 02/02/17 07:31 78 18 84 Nasal Cannula 4.0 02/02/17 04:12 36.7 69 28 132/66 93 Nasal Cannula 4.0 02/02/17 04:00 Nasal Cannula 3.0 Physical Exam: General-pleasant alert elderly male, not in distress Eyes-anicteric Neck-supple, trachea midline Lungs-CTA bilaterally, no respiratory distress Heart-irregularly irregular, no murmur Abdomen-soft nontender, normal BS Extremities-trace ankle edema BLLE Neuro-alert and oriented, normal affect, grossly nonfocal Laboratory Results: Last 24 Hours Test 02/01/17 11:47 02/01/17 12:20 02/01/17 12:35 02/01/17 18:54 Iron Level 27 mcg/dl Total Iron Binding Capacity 417 mcg/dl Transferrin 255 mg/dl Transferrin % Saturation 8 % Ferritin 48.2 ng/ml Vitamin B12 Level 756 pg/mL Folate 14.54 ng/mL Urine Color YELLOW Urine Appearance CLOUDY Urine pH 5.0 Urine Specific [place] 1.011 Urine Protein 3+ Urine Glucose (UA) NEG Urine Ketones NEG Urine Occult Blood NEG Urine Nitrite NEG Urine Bilirubin NEG Urine Urobilinogen NEG Urine Leukocyte Esterase TRACE Urine WBC (Auto) 1-5 /hpf Urine RBC (Auto) 0-4 /hpf Urine Hyaline Casts (Auto) 10-30 /lpf Urine Epithelial Cells (Auto) >30 /lpf Urine Bacteria (Auto) NEG Urine Pathogenic Casts /lpf Hemoglobin 10.2 g/dL 10.3 g/dL Hematocrit 33.5 % 33.8 % Estimated Average Glucose 137 mg/dl Hemoglobin A1c 6.4 % Total Creatine Kinase 605 U/L Creatine Kinase MB 2.9 ng/ml Creatine Kinase MB Ratio 0.5 Troponin I 0.015 ng/ml Test 02/02/17 00:26 02/02/17 06:55 Hemoglobin 10.3 g/dL 10.8 g/dL Hematocrit 33.9 % 35.2 % White Blood Count 6.70 K/uL Red Blood Count 4.29 M/uL Mean Corpuscular Volume 82.1 fL Mean Corpuscular Hemoglobin 25.2 pg Mean Corpuscular Hemoglobin Concent 30.7 g/dl Platelet Count 165 K/uL Mean Platelet Volume 9.7 fL Neutrophils (%) (Auto) 58.9 % Lymphocytes (%) (Auto) 24.8 % Monocytes (%) (Auto) 12.8 % Eosinophils (%) (Auto) 2.2 % Basophils (%) (Auto) 0.9 % Neutrophils # (Auto) 3.94 K/uL Lymphocytes # (Auto) 1.66 K/uL Monocytes # (Auto) 0.86 K/uL Eosinophils # (Auto) 0.15 K/uL Basophils # (Auto) 0.06 K/uL RDW Standard Deviation 52.6 fL RDW Coefficient of Variation 17.5 % Immature Granulocyte % (Auto) 0.4 % Immature Granulocyte # (Auto) 0.03 K/uL Sodium Level 144 mmol/L Potassium Level 3.8 mmol/L Chloride Level 109 mmol/L Carbon Dioxide Level 22 mmol/L Anion Gap 13.0 mmol/L Blood Urea Nitrogen 25 mg/dl Creatinine 1.60 mg/dl Est Creatinine Clear Calc Drug Dose 34.8 ml/min Estimated GFR () 46.1 Estimated GFR (Non- 39.8 BUN/Creatinine Ratio 15.3 Random Glucose 101 mg/dl Calcium Level 8.8 mg/dl Magnesium Level 2.5 mg/dl (Mar Delatorre PA-C) Assessment & Plan UPPER GI BLEED Hemodynamically stable; Hg trended from 11.1-> 10's and remains stable in 10's ( baseline Hg approx 11-12) Aspirin and Plavix held On Protonix drip; not on IVF's due to pulmonary edema No further GI bleeding after admission Reduce H/H monitoring to q8 Type and hold 2 units pRBC GI consulted; appreciate input EGD cancelled today due to respiratory status as per anesthesiology after discussing with Dr. Watts Resume clear liquid diet ACUTE HYPOXIC RESPIRATORY FAILURE SECONDARY TO PULMONARY EDEMA LIKELY CHF BNP elevated to 7000; CXR showed congestive heart failure; repeat CXR 02/02 shows unchanged CHF Echo- The left ventricle is normal in size. There is moderate concentric left ventricular hypertrophy. The left ventricular wall motion is normal. Ejection Fraction = 65-70%. The left atrium is moderately dilated. The right atrium is moderately dilated. There is moderate to severe mitral regurgitation. There is moderate to severe tricuspid regurgitation. Right ventricular systolic pressure is elevated at 40-50mmHg. Cardiac markers negative x 3 On IV Lasix 20 mg daily Nebs q6 Cardiology consulted; appreciate input; Monitor daily weight and intake/output Continues to require oxygen 2-4 liters May need 2 step prior to discharge IVAN Creat increased from 1.3 to 1.6 Likely secondary to diuresis Monitor renal function ATRIAL FIBRILLATION Not on anticoagulation due to h/o cerebellar hemorrhage/CVA Rate controlled Changed from atenolol to metoprolol succinate HYPERTENSION Amlodipine on hold for now Changed from atenolol to metoprolol succinate As per cardiology plan is to reduce amlodipine to 5 mg per day and restart low dose MARTIN-I with lisinopril 5 mg daily HISTORY OF CAD ASA and Plavix on hold for GIB Continue beta nuris HISTORY OF CVA/CEREBELLAR HEMORRHAGE NOCTURIA/ FREQUENCY Check UA- no significant abnormality Post void bladder scan WNL A1c = 6.4 DVT PROPHYLAXIS No pharmacological anticoagulation due to GIB SCD's ordered FULL CODE Per admitting provider's discussion with patient DISPOSITION Follows with Dr. Alcala for primary care Lives independently at [facility] PT/OT ordered for tomorrow/ once medically stable Patient seen in collaboration with Dr. Chacon. Please see his addendum. Current Inpatient Medications: Current Inpatient Medications Medications (Trade) Dose Ordered Sig/Nathen Route Start Time Stop Time Status Last Admin Dose Admin Acetaminophen (Tylenol Tab) 650 mg Q4H PRN PO 02/01/17 02:00 03/03/17 01:59 Ondansetron HCl (Zofran Inj) 4 mg Q6H PRN IV 02/01/17 02:00 03/03/17 01:59 Escitalopram Oxalate (Lexapro Tab) 5 mg DAILY PO 02/01/17 09:00 03/03/17 08:59 02/02/17 07:52 5 MG Meclizine HCl 25 mg 25 mg TID PRN PO 02/01/17 02:15 03/03/17 02:14 Pantoprazole Sodium/Dextrose (Protonix Inj/D5 100ml) 100 ml @ 20 mls/hr Q5H IV 02/01/17 06:00 03/03/17 05:59 02/02/17 07:51 20 MLS/HR Ipratropium [place] (Atrovent 0.02% 0.5MG/2.5ML Neb) 0.5 mg Q6R INH 02/01/17 03:00 03/03/17 02:59 02/02/17 07:31 0.5 MG Levalbuterol (Xopenex 1.25MG/ 0.5ML Neb) 1.25 mg Q6R INH 02/01/17 03:00 03/03/17 02:59 02/02/17 07:31 1.25 MG Metoprolol Succinate 50 mg 50 mg QAM PO 02/02/17 09:00 03/04/17 08:59 02/02/17 07:52 50 MG Furosemide/Syringe (Lasix Inj/ Syringe) 2 ml @ 4 mls/min DAILY@0900 IV 02/02/17 09:00 03/04/17 08:59 02/02/17 07:52 4 MLS/MIN (Mar Delatorre PA-C) Clinically & hemodynamically doing well. H/H has been stable and is close to baseline. EGD has been cancelled due to hypoxemia. Started feeding and will advance gradually. Michele Chacon MD (Michele Chacon MD)
[2017-02-02] MEDS ORDERED: AMLODIPINE BESYLATE 5 MG TAB PO ONE (11:19)
[2017-02-02] MEDS: NITROGLYCERIN OINT 2% 1GM PACKET EXT SCH ×2 (11:55→17:58)
[2017-02-02] MEDS ORDERED: FERROUS SULFATE 325 MG TAB PO ONE (12:05)
--- NOTE | 2017-02-02 12:05 | Progress Note ---
Progress Note Date of Service Feb 02, 2017. Progress Note Patient is a 81 year old male currently admitted for CHF and hematemesis. Hgb around 11 which is his baseline since 2014. He had been having pain along his esophagus, epigastric area for a week associated also w odynophagia, nausea but no dysphagia. He was scheduled to undergo EGD today. However had O2 desaturation to 84% while on O2 2L NC when he got out of bed. Case cancelled by anesthesia. - Will start Ferrous Sulfate 325mg BID PO - Change Protonix to 40mg IV BID - If still admitted, will re-eval on Sunday for possible EGD next week. If he's DC'd will contact our schedulers to make outpt EGD appt
--- NOTE | 2017-02-02 12:09 | CARDIOLOGY PROGRESS NOTE ---
DATE: 02/02/2017 DATE: 02/02/2017. The patient seen and examined. Chart, medications, telemetry reviewed. SUBJECTIVE: The patient feels well this morning. Notes abdominal pain and burning has improved. Notes no worsening shortness of breath, dizziness, lightheadedness, syncope or near syncope. Had minimal diuresis overnight. OBJECTIVE: VITAL SIGNS: Heart rate is 78, blood pressure is 165/79. NECK: Neck is thick. There is no distinct jugular venous distension with neck veins appearing flat at 30 degrees. LUNGS: Reveal diminished breath sounds at the bases, but are predominantly clear at the apices. CARDIOVASCULAR EXAMINATION: Irregular, irregular. There is no S3 gallop. ABDOMEN: Soft. EXTREMITIES: Without cyanosis or clubbing. There is no peripheral edema. LABORATORY STUDIES: Sodium is 144, potassium is 3.8, chloride is 109, bicarbonate 22, BUN is 25, creatinine is increased to 1.6 from baseline 1.3. Chest x-ray reveals improved interstitial changes though lagging behind physical examination. O2 saturations 92% on 2 liters nasal cannula. IMPRESSION: An 81-year-old male with underlying history of ischemic heart disease with stable class 2 angina pectoris. No recent anginal symptoms, but presents with symptoms consistent with severe epigastric pain and discomfort with postprandial complaints hematemesis. Symptoms have improved since holding antiplatelet therapies and beginning IV Protonix. Chest x-ray has demonstrated congestive heart failure on presentation though clinical examination is not significantly volume overloaded. Chest x-ray is improving this morning but lagging with physical examination. PLAN: The patient was scheduled for EGD today but has been canceled due to concerns regarding x-ray. Topical nitrates will be added for blood pressure control. Single additional dose of IV metoprolol will be given this afternoon, though again exam is not profoundly volume overloaded. Will continue change in medical therapies, specifically metoprolol succinate for atenolol. If renal function stabilizes, would consider adding low dose lisinopril to regimen, though will restart amlodipine today at 5 mg per day.
--- NOTE | 2017-02-02 12:20 | Clinical Documentation Query ---
QUERY 1 OF [address] TRINIDAD, In your clinical opinion is this patient being managed for: ( X ) Acute on chronic diastolic (congestive) heart failure ( ) Other explanation of clinical findings (Please Explain) ( ) Unable to determine (Please Define) ( ) Need to Discuss ( ) Not Agree The medical record reflects the following clinical findings, treatment, and risk factors. Clinical Indicators:81 yo male presenting intermittent chest pain x 1 week. BNP 7061, CXR showed CHF. ECHO showed EF 65-70%. Treatment: IV lasix, O2 support, tele, cardiology consult, ECHO, toprol xl Risk Factors: age, hx CHF, A fib, HTN, NSTEMI QUERY 2 OF 2 In your clinical opinion is this patient being managed for: (x ) CKD stage II ( ) Other explanation of clinical findings (Please Explain) ( ) Unable to determine (Please Define) ( ) Need to Discuss ( ) Not Agree The medical record reflects the following clinical findings, treatment, and risk factors. Clinical Indicators: Review of GFR showed baseline of 68-70 from 2015. Currently 39.8-51.2 Treatment:serial PRP's, chronic disease management Risk Factors: age, Afib, HTN, CAD Please clarify and document your clinical opinion in the progress notes and discharge summary. Terms such as "probable", "suspected", "likely", "questionable", "possible", or "still to be ruled out" are acceptable. IF IN AGREEMENT, YOU MUST DOCUMENT ABOVE DIAGNOSTIC STATEMENT IN DAILY PROGRESS NOTES AND DISCHARGE SUMMARY. This document is not part of the patient's record. Thank You, Ann-Marie Hughes, RN [phone]
--- NOTE | 2017-02-02 12:27 | Anesthesiology Progress Note ---
Anesthesia Progress Note Date of Service Feb 02, 2017. Progress Notes The patient is an 81 y/o male with a h/o CAD s/p MA 2014, stable class 2 angina, CAD s/p CABG 1990, CHF, Afib, AAA repair, carotid disease s/p B CEA, valvular disease and intracranial hemorrhage who was admitted yesterday with CHF and acute hypoxic respiratory failure secondary to pulmonary edema. The patient was scheduled for EGD today as he has been complaining of esophageal and epigastric pain as well as hematemesis. Hemoglobin today was 10.8 and his baseline has been near 11 since 2014. He has had no further episodes of hematemesis. The patient was brought down to the GI holding area and evaluated. The patient was initially only saturating 85% on 2l NC when he arrived. His 02 was increased to 4L NC and his oxygen saturation improved to 94-95%. The patient stated that he has been more short of breath since admission and was short of breath just ambulating to the bathroom overnight. Normally he states he can walk about 100 yards. On exam, the patient had bilateral rales at the bases with overall decreased breath sounds some mild wheezing. His heart had irregular rate and rhythm. His BMP on admission was 7061 and his CXR from today continues to pulmonary edema secondary to heart failure. I spoke to Dr. Watts regarding my concern that giving this patient even minimal anesthesia for this procedure could make him more profoundly hypoxic. Dr. Watts agreed that the risk of doing the procedure given the patient's multiple comorbidities including current CHF would outweigh the benefit as the patient's hemoglobin is currently stable and near baseline. Furthermore, he stated that the patient is already being appropriately treated for his GI symptoms and that the treatment would not change despite performing the EGD today.
[2017-02-02 14:46] LABS: HEMATOCRIT 34.5 % (42-52)
[2017-02-02] MEDS: FERROUS SULFATE 325 MG TAB PO SCH ×2 (20:59→21:00)
[2017-02-02] MEDS: PANTOprazole INJ 40 MG in SYRINGE 0 ML IV SCH (21:00)
[2017-02-02 22:07] LABS: HEMATOCRIT 33.3 % (42-52)
[2017-02-03] VITALS (10 sets, daily range): BP systolic 108–144; BP diastolic 63–86; PULSE 63–73; TEMP 36.4–37; O2SAT 89–95
[2017-02-03] MEDS: NITROGLYCERIN OINT 2% 1GM PACKET EXT SCH ×4 (00:21→18:07)
[2017-02-03] MEDS: IPRATROPIUM BROMIDE NEB SOLN 0.02% 2.5 ML VIAL INH SCH ×3 (01:53→14:54)
[2017-02-03] MEDS: LEVALBUTEROL 1.25MG/0.5ML NEB INH SCH ×3 (01:54→14:54)
[2017-02-03 07:38] LABS: BASO % 0.6 %; BASO ABS # 0.04 K/uL (0-0.2); COMPLETE YES; EOS % 4.3 %; IG% 0.2 %; LYMPH ABS # 1.14 K/uL (1.2-3.4); MEAN CORPUSCULAR HEMOGLOBIN 24.6 pg (25-34); MEAN PLATELET VOLUME 9.5 fL (7.4-10.4); MONO % 10.9 %; PLATELET COUNT 164 K/uL (130-400); RED BLOOD COUNT 4.27 M/uL (4.7-6.1); WHITE BLOOD COUNT 6.32 K/uL (4.8-10.8)
[2017-02-03 08:06] LABS: BUN/CREATININE RATIO 16.6 (10-20); CALCIUM 8.3 mg/dl (8.5-10.1); CREATININE 1.4 mg/dl (0.60-1.40); MAGNESIUM 2.2 mg/dl (1.8-2.4); POTASSIUM 3.6 mmol/L (3.5-5.1)
[2017-02-03] MEDS: METOPROLOL SUCC 50MG EXT REL TAB PO SCH (08:38)
[2017-02-03] MEDS: ESCITALOPRAM OXALATE 10 MG TAB PO SCH (08:38)
[2017-02-03] MEDS: AMLODIPINE BESYLATE 5 MG TAB PO SCH (08:38)
[2017-02-03] MEDS: FERROUS SULFATE 325 MG TAB PO SCH ×2 (08:39→21:33)
[2017-02-03] MEDS: PANTOprazole INJ 40 MG in SYRINGE 0 ML IV SCH ×2 (08:39→21:33)
[2017-02-03] MEDS ORDERED: FUROSEMIDE INJ 20 MG in SYRINGE 0 ML IV SCH (09:45)
--- NOTE | 2017-02-03 11:29 | Cardiology Follow-Up ---
Subjective Subjective Date of Service: Feb 03, 2017. Pt evaluation today including: conversation w/ patient, physical exam, chart review, lab review, review of studies, review of inpatient medication list Additional Details: Pt seen and examined, oob in chair. States that he's feeling well, abdominal/ chest discomfort resolved. No sign of active bleeding. Denies sob, palpitation, lightheadedness or dizziness. Problem List Medical Problems: (1) Atrial fibrillation Status: Acute (2) Hypoxia Status: Acute (3) Pleural effusion Status: Acute (4) Pulmonary edema Status: Acute (5) Upper GI bleed Status: Acute Review of Systems Constitutional: No chills, No fever Respiratory: No cough, No dyspnea at rest, No dyspnea on exertion, No hemoptysis, No problem reported, No see HPI, No shortness of breath, No sputum, No wheezing Cardiac: No PND, No chest pain, No claudication, No edema, No orthopnea, No palpitations, No problem reported, No see HPI Objective Vital Signs Last Vital Signs Documentation Date Time Temp Pulse Resp B/P Pulse Ox O2 Delivery O2 Flow Rate FiO2 02/03/17 07:56 36.4 69 20 139/75 93 Nasal Cannula 3.0 Physical Exam: General Appearance: WD/WN, no apparent distress Eyes: bilateral eyes EOMI, bilateral eyes PERRL, bilateral eyes normal inspection ENT: normal ENT inspection, pharynx normal, + pertinent finding (hard of hearing) Neck: supple, no adenopathy, thyroid normal, no JVD, no carotid bruits, trachea midline Respiratory/Chest: chest non-tender, lungs clear, normal breath sounds, no respiratory distress, no accessory muscle use Cardiovascular: no edema, no JVD, + irregularly irregular Abdomen: normal bowel sounds, non tender, soft, no organomegaly, no pulsatile mass Extremities: normal inspection, no pedal edema, no calf tenderness Neurologic/Psychiatric: 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 acute decompensated systolic heart failure does not examine as volume overloaded EGD held will give additional dose of IV lasix today check chest xray in AM 2. afib new onset rate controlled obviously not an anticoagulation candidate at this time in the setting of presumed upper gi bleed 3. 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 PAD will need to restart asa and plavix
--- NOTE | 2017-02-03 16:35 | Progress Note ---
Internal Med Progress Note Date of Service: Feb 03, 2017. Provider Documentation: SUBJECTIVE: Patient is sitting in his bed in no apparent distress. Denies any chest pain/ pressure, SOB or palpitations. Tolerating oral intake so far. OBJECTIVE: Vital Signs-as noted below Examination: General-pleasant alert elderly male, not in distress Eyes-anicteric ENT: Ears, Nose & Throat are normal looking. Is hard of hearing. Neck-Supple, trachea midline Lungs-B/L Moderate air entry, Clear to auscultation Heart-irregularly irregular, no murmur Abdomen-soft nontender, normal BS Extremities-trace ankle edema BLLE Neuro-alert and oriented, normal affect, grossly nonfocal Lab data as noted below. ASSESSMENT & PLAN: Echocardiogram The left ventricle is normal in size. There is moderate concentric left ventricular hypertrophy. The left ventricular wall motion is normal. Ejection Fraction = 65-70%. The left atrium is moderately dilated. The right atrium is moderately dilated. There is moderate to severe mitral regurgitation. There is moderate to severe tricuspid regurgitation. Right ventricular systolic pressure is elevated at 40-50mmHg. Upper GI Bleed: Hemodynamically stable; Hg trended from 11.1-> 10's and remains stable in 10's (baseline Hg approx 11-12) Aspirin and Plavix held. No further GI bleeding after admission -Continue Protonix. -H/H has been stable. -Type and hold 2 units pRBC -GI consulted; appreciate input -EGD cancelled today due to respiratory status as per anesthesiology after discussing with Dr. Watts. May do as outpatient. -Resume clear liquid diet Acute Exacerbation of Chronic Diastolic CHF: Clinically improving. BNP elevated to 7000; CXR showed congestive heart failure; repeat CXR 02/02 shows unchanged CHF -Cardiac markers negative x 3 -Continue Lasix -Monitoring I's & O's. -Cardiology consulted; appreciate input; -Monitor daily weight -Continues to require oxygen 2-4 liters -May need 2 step prior to discharge CKD Stage II: Creatinine above baseline which can be the result of CHF exacerbation as well. -Monitoring GFR -Avoid any Nephrotoxin History Atrial Fibrillation: Rate is controlled. Not on anticoagulation due to h /o cerebellar hemorrhage/CVA -Changed from atenolol to metoprolol succinate Hypertension:Monitoring BP closely. -Amlodipine on hold for now -Changed from atenolol to metoprolol succinate As per cardiology plan is to reduce amlodipine to 5 mg per day and restart low dose MARTIN-I with lisinopril 5 mg daily History CAD: ASA and Plavix on hold for GIB -Continue beta nuris History CVA/Cerebellar hemorrhage: Stable. Nocturnal Frequency: UA is normal.?? Prostate -Post void bladder scan WNL -HbA1c = 6.4 DVT Prophylaxis: No pharmacological anticoagulation due to GIB SCD's ordered Code Status: FULL CODE Per admitting provider's discussion with patient Disposition: Discharge once is clinically stable. Follows with Dr. Alcala for primary care Lives independently at [facility] PT/OT ordered for tomorrow/ once medically stable Vital Signs: Date Time Temp Pulse Resp B/P Pulse Ox O2 Delivery O2 Flow Rate FiO2 02/03/17 15:06 36.6 65 19 124/72 91 Nasal Cannula 2.0 02/03/17 14:55 63 14 89 Room Air 02/03/17 12:01 93 Nasal Cannula 3.0 02/03/17 11:41 36.7 68 19 124/71 94 Nasal Cannula 3.0 02/03/17 08:00 93 Nasal Cannula 3.0 02/03/17 07:56 36.4 69 20 139/75 93 Nasal Cannula 3.0 02/03/17 07:21 69 14 93 Nasal Cannula 2.0 02/03/17 04:00 Nasal Cannula 3.0 02/03/17 03:21 36.4 65 23 144/86 93 Nasal Cannula 3.0 02/03/17 00:00 Nasal Cannula 3.0 02/02/17 23:38 36.6 67 22 123/73 97 Nasal Cannula 3.0 02/02/17 20:23 96 Nasal Cannula 2.0 02/02/17 20:00 96 Nasal Cannula 2.0 02/02/17 19:40 36.7 68 20 156/76 96 Nasal Cannula 2.0 02/02/17 19:38 67 14 92 Nasal Cannula 2.0 Lab Results: Results Past 24 Hours Test 02/02/17 22:00 02/03/17 06:58 Range/Units Hemoglobin 10.2 10.5 14.0-18.0 g/dL Hematocrit 33.3 35.0 42-52 % White Blood Count 6.32 4.8-10.8 K/uL Red Blood Count 4.27 4.7-6.1 M/uL Mean Corpuscular Volume 82.0 80-100 fL Mean Corpuscular Hemoglobin 24.6 25-34 pg Mean Corpuscular Hemoglobin Concent 30.0 32-36 g/dl Platelet Count 164 130-400 K/uL Mean Platelet Volume 9.5 7.4-10.4 fL Neutrophils (%) (Auto) 66.0 % Lymphocytes (%) (Auto) 18.0 % Monocytes (%) (Auto) 10.9 % Eosinophils (%) (Auto) 4.3 % Basophils (%) (Auto) 0.6 % Neutrophils # (Auto) 4.17 1.4-6.5 K/uL Lymphocytes # (Auto) 1.14 1.2-3.4 K/uL Monocytes # (Auto) 0.69 0.11-0.59 K/uL Eosinophils # (Auto) 0.27 0-0.5 K/uL Basophils # (Auto) 0.04 0-0.2 K/uL RDW Standard Deviation 51.3 36.4-46.3 fL RDW Coefficient of Variation 17.1 11.5-14.5 % Immature Granulocyte % (Auto) 0.2 % Immature Granulocyte # (Auto) 0.01 0.00-0.02 K/uL Sodium Level 144 136-145 mmol/L Potassium Level 3.6 3.5-5.1 mmol/L Chloride Level 108 98-107 mmol/L Carbon Dioxide Level 26 21-32 mmol/L Anion Gap 10.0 3-11 mmol/L Blood Urea Nitrogen 23 7-18 mg/dl Creatinine 1.40 0.60-1.40 mg/dl Est Creatinine Clear Calc Drug Dose 39.8 ml/min Estimated GFR () 54.2 Estimated GFR (Non- 46.8 BUN/Creatinine Ratio 16.6 10-20 Random Glucose 80 70-99 mg/dl Calcium Level 8.3 8.5-10.1 mg/dl Magnesium Level 2.2 1.8-2.4 mg/dl
[2017-02-03] MEDS ORDERED: IPRATROPIUM BROMIDE NEB SOLN 0.02% 2.5 ML VIAL INH PRN (17:00)
[2017-02-03] MEDS ORDERED: LEVALBUTEROL 1.25MG/0.5ML NEB INH PRN (17:00)
[2017-02-03] MEDS: LEValbuterol HFA 15GM INHALER INH SCH (21:00)
[2017-02-03] MEDS: IPRATROPIUM BROMIDE HFA INHALER INH SCH (21:00)
[2017-02-04] MEDS: IPRATROPIUM BROMIDE HFA INHALER INH SCH ×6 (03:07→21:00)
[2017-02-04] MEDS: LEValbuterol HFA 15GM INHALER INH SCH ×6 (03:07→21:00)
[2017-02-04 03:11] VITALS: BP 136/70; PULSE 79; TEMP 36.7; O2SAT 94
[2017-02-04] MEDS: NITROGLYCERIN OINT 2% 1GM PACKET EXT SCH ×5 (06:05→23:35)
[2017-02-04 07:02] LABS: BASO % 0.4 %; BASO ABS # 0.03 K/uL (0-0.2); COMPLETE YES; EOS % 3.6 %; HEMATOCRIT 34.9 % (42-52); IG% 0.1 %; LYMPH % 18.5 %; MEAN CORPUSCULAR HEMOGLOBIN 25.1 pg (25-34); MEAN CORPUSCULAR HGB CONC 30.9 g/dl (32-36); MEAN PLATELET VOLUME 9.8 fL (7.4-10.4); MONO % 11.8 %; NEUT % 65.6 %; PLATELET COUNT 166 K/uL (130-400); RED BLOOD COUNT 4.31 M/uL (4.7-6.1); WHITE BLOOD COUNT 7.03 K/uL (4.8-10.8)
[2017-02-04 07:34] LABS: BUN/CREATININE RATIO 17.2 (10-20); CALCIUM 8.5 mg/dl (8.5-10.1); CREATININE 1.3 mg/dl (0.60-1.40); MAGNESIUM 2.2 mg/dl (1.8-2.4); POTASSIUM 3.7 mmol/L (3.5-5.1)
[2017-02-04 07:56] VITALS: BP 149/79; PULSE 80; TEMP 36.5; O2SAT 94
[2017-02-04] MEDS: ESCITALOPRAM OXALATE 10 MG TAB PO SCH (08:24)
[2017-02-04] MEDS: AMLODIPINE BESYLATE 5 MG TAB PO SCH (08:24)
[2017-02-04] MEDS: METOPROLOL SUCC 50MG EXT REL TAB PO SCH (08:24)
[2017-02-04] MEDS: FERROUS SULFATE 325 MG TAB PO SCH ×2 (08:24→20:58)
[2017-02-04] MEDS: PANTOprazole INJ 40 MG in SYRINGE 0 ML IV SCH (08:25)
--- NOTE | 2017-02-04 08:57 | DIAGNOSTIC IMAGING REPORT ---
TWO VIEW CHEST CLINICAL HISTORY: Dyspnea. FINDINGS: PA and lateral chest radiographs are compared to study dated 02/02/2017. The patient is status post midline sternotomy. The heart is enlarged and there is atherosclerotic calcification of the thoracic aorta. Pulmonary vascular congestion has almost completely resolved. There are layering pleural effusions with bibasilar consolidation. There is no pneumothorax. The skeletal structures are osteopenic. Degenerative change is present throughout the thoracic spine. IMPRESSION: 1. Cardiomegaly with mild pulmonary vascular congestion. This has improved from yesterday. 2. Layering pleural effusions and bibasilar consolidation. Electronically signed by: Lan Kerr M.D. 02/04/2017 8:55 AM Dictated Date/Time: 02/04/2017 8:54 AM
[2017-02-04] MEDS ORDERED: POTASSIUM CHLORIDE 10 MEQ TABCR PO STA (10:55)
[2017-02-04] MEDS ORDERED: FUROSEMIDE INJ 40 MG in SYRINGE 0 ML IV SCH (11:15)
[2017-02-04 12:08] VITALS: BP 159/79; PULSE 68; TEMP 36.5; O2SAT 92
--- NOTE | 2017-02-04 13:15 | Cardiology Follow-Up ---
Subjective Subjective Date of Service: Feb 04, 2017. Pt evaluation today including: conversation w/ patient, physical exam, chart review, lab review, review of studies, review of inpatient medication list Additional Details: Pt seen and examined, states that he feels well. Denies cp, sob, palpitations, lightheadedness or dizziness. Tele reviewed: atrial fibrillation, rate controlled Problem List Medical Problems: (1) Atrial fibrillation Status: Acute (2) Hypoxia Status: Acute (3) Pleural effusion Status: Acute (4) Pulmonary edema Status: Acute (5) Upper GI bleed Status: Acute Review of Systems Constitutional: No chills, No fever Respiratory: No cough, No dyspnea at rest, No dyspnea on exertion, No hemoptysis, No problem reported, No see HPI, No shortness of breath, No sputum, No wheezing Cardiac: No PND, No chest pain, No claudication, No edema, No orthopnea, No palpitations, No problem reported, No see HPI Objective Vital Signs Last Vital Signs Documentation Date Time Temp Pulse Resp B/P Pulse Ox O2 Delivery O2 Flow Rate FiO2 02/04/17 12:08 36.5 68 19 159/79 92 Nasal Cannula 2.0 Physical Exam: General Appearance: WD/WN, no apparent distress Eyes: bilateral eyes EOMI, bilateral eyes PERRL, bilateral eyes normal inspection ENT: normal ENT inspection, pharynx normal, + pertinent finding (hard of hearing) Neck: supple, no adenopathy, thyroid normal, no JVD, no carotid bruits, trachea midline Respiratory/Chest: chest non-tender, lungs clear, normal breath sounds, no respiratory distress, no accessory muscle use Cardiovascular: no edema, no JVD, + irregularly irregular Abdomen: normal bowel sounds, non tender, soft, no organomegaly, no pulsatile mass Extremities: normal inspection, no pedal edema, no calf tenderness 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 acute decompensated systolic heart failure does not examine as volume overloaded EGD held chest xray shows improvement will give one last dose of IV lasix now with KCl 2. afib new onset rate controlled obviously not an anticoagulation candidate at this time in the setting of presumed upper gi bleed 3. 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 PAD will need to restart asa and plavix
[2017-02-04 15:12] VITALS: BP 156/88; PULSE 72; TEMP 36.6; O2SAT 93
--- NOTE | 2017-02-04 17:03 | Progress Note ---
Internal Med Progress Note Date of Service: Feb 04, 2017. Provider Documentation: SUBJECTIVE: Patient is sitting in his bed in no apparent distress. Denies any chest pain/ pressure, SOB or palpitations. Tolerating oral intake so far. Denies any new change or [id number]. OBJECTIVE: Vital Signs-as noted below Examination: General-pleasant alert elderly male, not in distress Eyes-anicteric ENT: Ears, Nose & Throat are normal looking. Is hard of hearing. Neck-Supple, trachea midline Lungs-B/L Moderate air entry, Clear to auscultation Heart-irregularly irregular, no murmur Abdomen-soft nontender, normal BS Extremities-trace ankle edema BLLE Neuro-alert and oriented, normal affect, grossly nonfocal Lab data as noted below. ASSESSMENT & PLAN: Echocardiogram The left ventricle is normal in size. There is moderate concentric left ventricular hypertrophy. The left ventricular wall motion is normal. Ejection Fraction = 65-70%. The left atrium is moderately dilated. The right atrium is moderately dilated. There is moderate to severe mitral regurgitation. There is moderate to severe tricuspid regurgitation. Right ventricular systolic pressure is elevated at 40-50mmHg. Upper GI Bleed: Hemodynamically stable; Hg trended from 11.1-> 10's and remains stable in 10's (baseline Hg approx 11-12) Aspirin and Plavix held. No further GI bleeding after admission -Continue Protonix. -H/H has been stable. -Type and hold 2 units pRBC -GI consulted; appreciate input -EGD cancelled today due to respiratory status as per anesthesiology after discussing with Dr. Watts. May do as outpatient. -Resumed diet Acute Exacerbation of Chronic Diastolic CHF: Clinically improving. BNP elevated to 7000; CXR showed congestive heart failure; repeat CXR 02/02 shows unchanged CHF -Cardiac markers negative x 3 -Continue Lasix -Monitoring I's & O's. -Cardiology consulted; appreciate input; -Monitor daily weight -Continues to require oxygen 2-4 liters -May need 2 step prior to discharge CKD Stage II: Creatinine above baseline which can be the result of CHF exacerbation as well. -Monitoring GFR -Avoid any Nephrotoxin History Atrial Fibrillation: Rate is controlled. Not on anticoagulation due to h /o cerebellar hemorrhage/CVA -Changed from atenolol to metoprolol succinate Hypertension:Monitoring BP closely. -Amlodipine on hold for now -Changed from atenolol to metoprolol succinate As per cardiology plan is to reduce amlodipine to 5 mg per day and restart low dose MARTIN-I with lisinopril 5 mg daily History CAD: ASA and Plavix on hold for GIB -Continue beta nuris History CVA/Cerebellar hemorrhage: Stable. Nocturnal Frequency: UA is normal.?? Prostate -Post void bladder scan WNL -HbA1c = 6.4 DVT Prophylaxis: No pharmacological anticoagulation due to GIB SCD's ordered Code Status: FULL CODE Per admitting provider's discussion with patient Disposition: Discharge once is clinically stable. Follows with Dr. Alcala for primary care Lives independently at [facility] PT/OT ordered for tomorrow/ once medically stable Vital Signs: Date Time Temp Pulse Resp B/P Pulse Ox O2 Delivery O2 Flow Rate FiO2 02/04/17 15:12 36.6 72 20 156/88 93 Nasal Cannula 2.0 02/04/17 12:08 36.5 68 19 159/79 92 Nasal Cannula 2.0 02/04/17 12:00 Nasal Cannula 2.0 02/04/17 08:00 Nasal Cannula 2.0 02/04/17 07:56 36.5 80 19 149/79 94 Nasal Cannula 2.0 02/04/17 04:00 Nasal Cannula 2.0 02/04/17 03:11 36.7 79 19 136/70 94 Nasal Cannula 2.0 02/04/17 00:02 Nasal Cannula 2.0 02/03/17 23:58 36.4 73 20 144/78 95 Nasal Cannula 2.0 02/03/17 20:00 Nasal Cannula 2.0 02/03/17 18:56 37.0 70 19 108/63 91 Nasal Cannula 2.0 Lab Results: Results Past 24 Hours Test 02/04/17 06:33 Range/Units White Blood Count 7.03 4.8-10.8 K/uL Red Blood Count 4.31 4.7-6.1 M/uL Hemoglobin 10.8 14.0-18.0 g/dL Hematocrit 34.9 42-52 % Mean Corpuscular Volume 81.0 80-100 fL Mean Corpuscular Hemoglobin 25.1 25-34 pg Mean Corpuscular Hemoglobin Concent 30.9 32-36 g/dl Platelet Count 166 130-400 K/uL Mean Platelet Volume 9.8 7.4-10.4 fL Neutrophils (%) (Auto) 65.6 % Lymphocytes (%) (Auto) 18.5 % Monocytes (%) (Auto) 11.8 % Eosinophils (%) (Auto) 3.6 % Basophils (%) (Auto) 0.4 % Neutrophils # (Auto) 4.61 1.4-6.5 K/uL Lymphocytes # (Auto) 1.30 1.2-3.4 K/uL Monocytes # (Auto) 0.83 0.11-0.59 K/uL Eosinophils # (Auto) 0.25 0-0.5 K/uL Basophils # (Auto) 0.03 0-0.2 K/uL RDW Standard Deviation 50.8 36.4-46.3 fL RDW Coefficient of Variation 17.0 11.5-14.5 % Immature Granulocyte % (Auto) 0.1 % Immature Granulocyte # (Auto) 0.01 0.00-0.02 K/uL Sodium Level 145 136-145 mmol/L Potassium Level 3.7 3.5-5.1 mmol/L Chloride Level 107 98-107 mmol/L Carbon Dioxide Level 28 21-32 mmol/L Anion Gap 10.0 3-11 mmol/L Blood Urea Nitrogen 22 7-18 mg/dl Creatinine 1.30 0.60-1.40 mg/dl Est Creatinine Clear Calc Drug Dose 43.3 ml/min Estimated GFR () 59.3 Estimated GFR (Non- 51.2 BUN/Creatinine Ratio 17.2 10-20 Random Glucose 100 70-99 mg/dl Calcium Level 8.5 8.5-10.1 mg/dl Magnesium Level 2.2 1.8-2.4 mg/dl Pro-B-Type Natriuretic Peptide 7974 0-1800 pg/ml
[2017-02-04 19:21] VITALS: BP 138/82; PULSE 78; TEMP 37; O2SAT 92
[2017-02-04] MEDS: PANTOprazole SOD 40 MG TAB PO SCH (20:58)
[2017-02-04 22:48] VITALS: BP 142/81; PULSE 76; TEMP 36.6; O2SAT 92
[2017-02-05] VITALS (11 sets, daily range): BP systolic 138–177; BP diastolic 75–98; PULSE 80–98; TEMP 36.5–37; O2SAT 86–97
[2017-02-05] MEDS: IPRATROPIUM BROMIDE HFA INHALER INH SCH ×4 (03:00→20:51)
[2017-02-05] MEDS: LEValbuterol HFA 15GM INHALER INH SCH ×4 (03:00→20:51)
[2017-02-05] MEDS: NITROGLYCERIN OINT 2% 1GM PACKET EXT SCH ×4 (06:09→23:31)
[2017-02-05 06:40] LABS: BASO % 0.5 %; BASO ABS # 0.03 K/uL (0-0.2); COMPLETE YES; EOS % 2.7 %; HEMATOCRIT 35.2 % (42-52); IG% 0.3 %; LYMPH % 17.8 %; LYMPH ABS # 1.14 K/uL (1.2-3.4); MEAN CELL VOLUME 81.3 fL (80-100); MEAN CORPUSCULAR HEMOGLOBIN 24.9 pg (25-34); MEAN CORPUSCULAR HGB CONC 30.7 g/dl (32-36); MEAN PLATELET VOLUME 9.7 fL (7.4-10.4); MONO % 15.9 %; NEUT % 62.8 %; PLATELET COUNT 173 K/uL (130-400); RED BLOOD COUNT 4.33 M/uL (4.7-6.1)
[2017-02-05 07:16] LABS: BUN/CREATININE RATIO 16.3 (10-20); CALCIUM 8.6 mg/dl (8.5-10.1); CREATININE 1.1 mg/dl (0.60-1.40); MAGNESIUM 2.1 mg/dl (1.8-2.4)
[2017-02-05] MEDS: PANTOprazole SOD 40 MG TAB PO SCH ×2 (08:32→20:50)
[2017-02-05] MEDS: METOPROLOL SUCC 50MG EXT REL TAB PO SCH (08:33)
[2017-02-05] MEDS: AMLODIPINE BESYLATE 5 MG TAB PO SCH (08:33)
[2017-02-05] MEDS: SPIRONOLACTONE 25 MG TAB PO SCH (08:33)
[2017-02-05] MEDS: ESCITALOPRAM OXALATE 10 MG TAB PO SCH (08:33)
[2017-02-05] MEDS: FERROUS SULFATE 325 MG TAB PO SCH ×2 (08:34→20:50)
[2017-02-05] MEDS ORDERED: POTASSIUM CHLORIDE 10 MEQ TABCR PO STA (10:42)
--- NOTE | 2017-02-05 10:42 | Cardiology Follow-Up ---
Subjective Subjective Date of Service: Feb 05, 2017. Pt evaluation today including: conversation w/ patient, physical exam, chart review, lab review, review of studies, review of inpatient medication list Additional Details: Pt seen and examined, states that he's feeling well. Denies cp, sob, palpitations, lightheadedness or dizziness. Tele reviewed: atrial fibrillation, rate controlled Problem List Medical Problems: (1) Atrial fibrillation Status: Acute (2) Hypoxia Status: Acute (3) Pleural effusion Status: Acute (4) Pulmonary edema Status: Acute (5) Upper GI bleed Status: Acute Review of Systems Constitutional: No chills, No fever Respiratory: No cough, No dyspnea at rest, No dyspnea on exertion, No hemoptysis, No problem reported, No see HPI, No shortness of breath, No sputum, No wheezing Cardiac: No PND, No chest pain, No claudication, No edema, No orthopnea, No palpitations, No problem reported, No see HPI Objective Vital Signs Last Vital Signs Documentation Date Time Temp Pulse Resp B/P Pulse Ox O2 Delivery O2 Flow Rate FiO2 02/05/17 09:56 98 94 02/05/17 08:00 Nasal Cannula 2.0 02/05/17 07:05 36.8 17 152/90 Physical Exam: General Appearance: WD/WN, no apparent distress Eyes: bilateral eyes EOMI, bilateral eyes PERRL, bilateral eyes normal inspection ENT: normal ENT inspection, pharynx normal, + pertinent finding (hard of hearing) Neck: supple, no adenopathy, thyroid normal, no JVD, no carotid bruits, trachea midline Respiratory/Chest: chest non-tender, lungs clear, normal breath sounds, no respiratory distress, no accessory muscle use Cardiovascular: no edema, no JVD, + irregularly irregular Abdomen: normal bowel sounds, non tender, soft, no organomegaly, no pulsatile mass Extremities: normal inspection, no pedal edema, no calf tenderness 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 acute decompensated systolic heart failure does not examine as volume overloaded EGD held chest xray shows improvement 2. afib new onset rate controlled obviously not an anticoagulation candidate at this time in the setting of presumed upper gi bleed 3. 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 PAD will need to restart asa and plavix
[2017-02-05] MEDS ORDERED: FUROSEMIDE INJ 40 MG in SYRINGE 0 ML IV ONE (11:00)
[2017-02-05] MEDS ORDERED: KETAMINE HCL INJ 50 MG/ML 10 ML VIAL ONE (12:05)
[2017-02-05] MEDS ORDERED: BENZOCAIN/TETRACA/BUTAM SPRAY 200 APPLN/20 GM SPRY ONE (12:50)
[2017-02-05] MEDS ORDERED: LABETALOL HCL IV 5 MG/ML 20ML ONE (12:50)
--- NOTE | 2017-02-05 13:00 | Anesthesiology Progress Note ---
Anesthesia Post Op Note Date & Time Feb 05, 2017 at 12:58 Vital Signs Pain Intensity: 0.0 Vital Signs Past 12 Hours Date Time Temp Pulse Resp B/P Pulse Ox O2 Delivery O2 Flow Rate FiO2 02/05/17 12:50 36.6 88 24 153/73 94 Nasal Cannula 6 02/05/17 12:15 36.9 78 24 174/78 94 Nasal Cannula 2 02/05/17 12:00 95 Nasal Cannula 2.0 02/05/17 10:44 36.7 85 17 144/76 86 Room Air 02/05/17 09:56 98 94 02/05/17 08:00 90 Nasal Cannula 2.0 02/05/17 07:05 36.8 98 17 152/90 94 Nasal Cannula 2.0 02/05/17 04:02 Nasal Cannula 2.0 02/05/17 03:03 36.5 93 21 177/98 97 Nasal Cannula 2.0 Notes Mental Status: alert / awake / arousable, participated in evaluation Pt Amnestic to Procedure: Yes Nausea / Vomiting: adequately controlled Pain: adequately controlled Airway Patency, RR, SpO2: stable & adequate BP & HR: stable & adequate Hydration State: stable & adequate Anesthetic Complications: no major complications apparent The patient tolerated the procedure well with minimal sedation. He was only given Cetacaine spray to the throat and 30 mg IV ketamine with minimal IV fluid. He was given labetalol for HTN. He is awake and comfortable in the PACU and his vital signs are at his baseline.
--- NOTE | 2017-02-05 13:02 | GI REPORT ---
Procedure Date: 02/05/2017 12:17 PM Procedure: Upper GI endoscopy Indications: Melena Medicines: See the Anesthesia note for documentation of the administered medications Complications: No immediate complications. Estimated Blood Loss: Estimated blood loss: none. Procedure: Pre-Anesthesia Assessment: - ASA Grade Assessment: IV - A patient with severe systemic disease that is a constant threat to life. After obtaining informed consent, the endoscope was passed under direct vision. Throughout the procedure, the patient's blood pressure, pulse, and oxygen saturations were monitored continuously. The Scope was introduced through the mouth, and advanced to the second part of duodenum. The upper GI endoscopy was accomplished without difficulty. The patient tolerated the procedure well. Findings: There appeared to be a clean based Linette Murray tear at the GE junction. There was a moderate ring at the GE junction; the ring was not dilated due to pt's resp status. The GE junction was at 37 cm. There was no esophagitis. There was a hiatal hernia. The stomach was normal. There was a patchy erythema in the duodenal bulb. Impression: - Clean based MW tear. Ring. Recommendation: - Discharge patient to floor. - I am not planning on repeating EGD to dilate ring, but may consider as outpt if pt has symptomatic dysphagia and his resp status improves. - Continue BID PPI x 2 weeks, then once daily indeterminately. - OK to resume aspirin. Hold Plavix x 7 days, then ok to resume. Tripp Cano M.D. Tripp Cano MD 02/05/2017 1:01:27 PM This report has been signed electronically. Note Initiated On: 02/05/2017 12:17 PM I attest to the content of the Intraoperative Record and orders documented therein, exceptions below
[2017-02-05] MEDS ORDERED: HYDROCORTISONE ACETATE 25 MG SUPP PR STA (16:05)
--- NOTE | 2017-02-05 16:09 | Progress Note ---
Internal Med Progress Note Date of Service: Feb 05, 2017. Provider Documentation: SUBJECTIVE: Patient is sitting in his bed in no apparent distress. Denies any chest pain/ pressure, SOB or palpitations. Tolerating oral intake so far. Denies any new change or complaint. As per nursing staff, noted fresh blood on the diaper twice, not too much in quantity. OBJECTIVE: Vital Signs-as noted below Examination: General-pleasant alert elderly male, not in distress Eyes-anicteric ENT: Ears, Nose & Throat are normal looking. Is hard of hearing. Neck-Supple, trachea midline Lungs-B/L Moderate air entry, Clear to auscultation Heart-irregularly irregular, no murmur Abdomen-soft nontender, normal BS Extremities-trace ankle edema BLLE Neuro-alert and oriented, normal affect, grossly nonfocal Rectal Exam done. [place] few hemorrhoids and fresh liquid stools came out. Lab data as noted below. ASSESSMENT & PLAN: EGD (02/05/2017) Findings: There appeared to be a clean based Linette Murray tear at the GE junction. There was a moderate ring at the GE junction; the ring was not dilated due to pt's resp status. The GE junction was at 37 cm. There was no esophagitis. There was a hiatal hernia. The stomach was normal. There was a patchy erythema in the duodenal bulb. Impression: - Clean based MW tear. Ring. Recommendation: - Discharge patient to floor. - I am not planning on repeating EGD to dilate ring, but may consider as outpt if pt has symptomatic dysphagia and his resp status improves. - Continue BID PPI x 2 weeks, then once daily indeterminately. - OK to resume aspirin. Hold Plavix x 7 days, then ok to resume. Echocardiogram The left ventricle is normal in size. There is moderate concentric left ventricular hypertrophy. The left ventricular wall motion is normal. Ejection Fraction = 65-70%. The left atrium is moderately dilated. The right atrium is moderately dilated. There is moderate to severe mitral regurgitation. There is moderate to severe tricuspid regurgitation. Right ventricular systolic pressure is elevated at 40-50mmHg. Upper GI Bleed: Hemodynamically stable; Hg trended from 11.1-> 10's and remains stable in 10's (baseline Hg approx 11-12) Aspirin and Plavix held. No further GI bleeding after admission -Continue Protonix. -H/H has been stable. -Type and hold 2 units pRBC -GI consulted; appreciate input -Resumed diet -Reviewed findings of EGD done today. Acute Exacerbation of Chronic Diastolic CHF: Clinically improving. BNP elevated to 7000; CXR showed congestive heart failure; repeat CXR 02/02 shows unchanged CHF -Cardiac markers negative x 3 -Continue Lasix -Monitoring I's & O's. -Cardiology consulted; appreciate input; -Monitor daily weight -Continues to require oxygen 2-4 liters -May need 2 step prior to discharge -Started Anusol form likely internal hemorrhoids CKD Stage II: Creatinine above baseline which can be the result of CHF exacerbation as well. -Monitoring GFR -Avoid any Nephrotoxin History Atrial Fibrillation: Rate is controlled. Not on anticoagulation due to h /o cerebellar hemorrhage/CVA -Changed from atenolol to metoprolol succinate Hypertension:Monitoring BP closely. -Amlodipine on hold for now -Changed from atenolol to metoprolol succinate As per cardiology plan is to reduce amlodipine to 5 mg per day and restart low dose MARTIN-I with lisinopril 5 mg daily History CAD: ASA and Plavix on hold for GIB. Re-start Plavix after 7 days. -Continue beta nuris History CVA/Cerebellar hemorrhage: Stable. Nocturnal Frequency: UA is normal.?? Prostate -Post void bladder scan WNL -HbA1c = 6.4 DVT Prophylaxis: No pharmacological anticoagulation due to GIB SCD's ordered Code Status: FULL CODE Per admitting provider's discussion with patient Disposition: Discharge once is clinically stable in 1-[address] Alcala for primary care Lives independently at [facility] PT/OT ordered for tomorrow/ once medically stable Vital Signs: Date Time Temp Pulse Resp B/P Pulse Ox O2 Delivery O2 Flow Rate FiO2 02/05/17 15:27 36.6 90 20 138/84 96 Nasal Cannula 2.0 02/05/17 13:23 88 24 139/68 93 Nasal Cannula 3 02/05/17 13:05 90 24 151/66 94 Nasal Cannula 3 02/05/17 12:50 36.6 88 24 153/73 94 Nasal Cannula 6 02/05/17 12:15 36.9 78 24 174/78 94 Nasal Cannula 2 02/05/17 12:00 95 Nasal Cannula 2.0 02/05/17 10:44 36.7 85 17 144/76 86 Room Air 02/05/17 09:56 98 94 02/05/17 08:00 90 Nasal Cannula 2.0 02/05/17 07:05 36.8 98 17 152/90 94 Nasal Cannula 2.0 02/05/17 04:02 Nasal Cannula 2.0 02/05/17 03:03 36.5 93 21 177/98 97 Nasal Cannula 2.0 02/05/17 00:02 Nasal Cannula 2.0 02/04/17 22:48 36.6 76 21 142/81 92 Nasal Cannula 1.5 02/04/17 20:00 Nasal Cannula 2.0 02/04/17 19:21 37.0 78 20 138/82 92 Nasal Cannula 2.0 Lab Results: Results Past 24 Hours Test 02/05/17 06:05 Range/Units White Blood Count 6.40 4.8-10.8 K/uL Red Blood Count 4.33 4.7-6.1 M/uL Hemoglobin 10.8 14.0-18.0 g/dL Hematocrit 35.2 42-52 % Mean Corpuscular Volume 81.3 80-100 fL Mean Corpuscular Hemoglobin 24.9 25-34 pg Mean Corpuscular Hemoglobin Concent 30.7 32-36 g/dl Platelet Count 173 130-400 K/uL Mean Platelet Volume 9.7 7.4-10.4 fL Neutrophils (%) (Auto) 62.8 % Lymphocytes (%) (Auto) 17.8 % Monocytes (%) (Auto) 15.9 % Eosinophils (%) (Auto) 2.7 % Basophils (%) (Auto) 0.5 % Neutrophils # (Auto) 4.02 1.4-6.5 K/uL Lymphocytes # (Auto) 1.14 1.2-3.4 K/uL Monocytes # (Auto) 1.02 0.11-0.59 K/uL Eosinophils # (Auto) 0.17 0-0.5 K/uL Basophils # (Auto) 0.03 0-0.2 K/uL RDW Standard Deviation 51.8 36.4-46.3 fL RDW Coefficient of Variation 17.3 11.5-14.5 % Immature Granulocyte % (Auto) 0.3 % Immature Granulocyte # (Auto) 0.02 0.00-0.02 K/uL Sodium Level 146 136-145 mmol/L Potassium Level 4.0 3.5-5.1 mmol/L Chloride Level 109 98-107 mmol/L Carbon Dioxide Level 30 21-32 mmol/L Anion Gap 7.0 3-11 mmol/L Blood Urea Nitrogen 18 7-18 mg/dl Creatinine 1.10 0.60-1.40 mg/dl Est Creatinine Clear Calc Drug Dose 51.2 ml/min Estimated GFR () 72.6 Estimated GFR (Non- 62.6 BUN/Creatinine Ratio 16.3 10-20 Random Glucose 95 70-99 mg/dl Calcium Level 8.6 8.5-10.1 mg/dl Magnesium Level 2.1 1.8-2.4 mg/dl
[2017-02-05] MEDS ORDERED: NURSING VERBAL MED ORDER ONE (17:30)
[2017-02-05] MEDS ORDERED: LOPERAMIDE HCL 2 MG CAP PO PRN ×2 (17:45)
[2017-02-06] VITALS (13 sets, daily range): BP systolic 153–177; BP diastolic 60–94; PULSE 60–98; TEMP 36.4–37.1; O2SAT 90–98
[2017-02-06] MEDS: IPRATROPIUM BROMIDE HFA INHALER INH SCH ×4 (03:00→20:40)
[2017-02-06] MEDS: LEValbuterol HFA 15GM INHALER INH SCH ×4 (03:00→20:40)
[2017-02-06] MEDS: NITROGLYCERIN OINT 2% 1GM PACKET EXT SCH ×4 (06:13→23:40)
[2017-02-06 06:40] LABS: BASO % 0.8 %; BASO ABS # 0.04 K/uL (0-0.2); COMPLETE YES; EOS % 3.4 %; HEMATOCRIT 36.3 % (42-52); IG% 0.2 %; LYMPH % 23.3 %; LYMPH ABS # 1.17 K/uL (1.2-3.4); MEAN CELL VOLUME 81.4 fL (80-100); MEAN CORPUSCULAR HEMOGLOBIN 24.9 pg (25-34); MEAN CORPUSCULAR HGB CONC 30.6 g/dl (32-36); MEAN PLATELET VOLUME 9.3 fL (7.4-10.4); MONO % 15.1 %; NEUT % 57.2 %; PLATELET COUNT 159 K/uL (130-400); RED BLOOD COUNT 4.46 M/uL (4.7-6.1); WHITE BLOOD COUNT 5.03 K/uL (4.8-10.8)
[2017-02-06 07:26] LABS: BUN/CREATININE RATIO 14.2 (10-20); CALCIUM 8.6 mg/dl (8.5-10.1); CREATININE 0.92 mg/dl (0.60-1.40); MAGNESIUM 2.1 mg/dl (1.8-2.4); POTASSIUM 3.8 mmol/L (3.5-5.1)
[2017-02-06] MEDS ORDERED: NURSING VERBAL MED ORDER ONE (07:30)
[2017-02-06] MEDS: NICOTINE 14 MG/24 HR TDSY TD SCH (08:34)
[2017-02-06] MEDS: HYDROCORTISONE ACETATE 25 MG SUPP PR SCH (08:57)
[2017-02-06] MEDS: PANTOprazole SOD 40 MG TAB PO SCH ×2 (08:57→20:40)
[2017-02-06] MEDS: SPIRONOLACTONE 25 MG TAB PO SCH (08:58)
[2017-02-06] MEDS: AMLODIPINE BESYLATE 5 MG TAB PO SCH (08:58)
[2017-02-06] MEDS: METOPROLOL SUCC 50MG EXT REL TAB PO SCH (08:58)
[2017-02-06] MEDS: ESCITALOPRAM OXALATE 10 MG TAB PO SCH (08:58)
[2017-02-06] MEDS: FERROUS SULFATE 325 MG TAB PO SCH ×2 (08:58→20:40)
[2017-02-06] MEDS ORDERED: ASPIRIN 81 MG ECTAB PO ONE (09:30)
--- NOTE | 2017-02-06 09:36 | Progress Note ---
Internal Med Progress Note Date of Service: Feb 06, 2017. Provider Documentation: SUBJECTIVE: Patient is seen and examined at bedside. Feels well. Denies any chest pain, SOB , palpitations, hematemesis. Offers no other complaints. OBJECTIVE: Vital Signs-as noted below Physical Exam: Vitals signs as noted above General Appearance:Moderately built and nourished, no apparent distress Head: normocephalic, Atraumatic Eyes: normal inspection, EOMI, PERRLA Neck: supple, Trachea midline Respiratory/Chest: Decreased breath sounds, CTA Cardiovascular: Irregularly, irregular, No murmur Abdomen/GI:Soft, Non tender, Bowel sounds present Extremities/Musculoskelatal:normal inspection, 1+ B/L edema Neurologic/Psych:AAOX3, grossly no focal neurological deficits Skin: normal color, warm Lab data as noted below. ASSESSMENT & PLAN: Upper GI Bleed: Likely secondary to Linette Murray tear at the GE junction S/P EGD: findings as below Hb stable, Baseline Hg approx 11-12 No further GI bleeding after admission Will resume Aspirin To resume Plavix in 7 days Continue ProtoniX BID for 2 weeks and then daily Monitor Hb Appreciate GI input Acute Exacerbation of Chronic Diastolic CHF: Clinically improving. Diuretics per cardiology Cardiac markers negative x 3 Monitoring I's & O's, daily weight Appreciate Cardiology help Continues to require oxygen 2 liters Needs 2 step prior to discharge ? Internal hemorrhoids: On Anusol CKD II: Monitor Cr levels Avoid Nephrotoxic agents H/O Atrial Fibrillation: Rate controlled. Not on anticoagulation due to h/o cerebellar hemorrhage/CVA Changed from atenolol to metoprolol succinate Continue Aspirin Hypertension: Monitoring BP Continue Amlodipine, BB Changed from atenolol to metoprolol succinate Plan to start MARTIN-I with lisinopril 5 mg daily if ok with cards H/O CAD: Continue ASA Plavix on hold for GIB. Re-start Plavix after 7 days. Continue beta nuris History CVA/Cerebellar hemorrhage: Stable. Nocturnal Frequency: UA is normal.?? Prostate Post void bladder scan WNL HbA1c = 6.4 DVT Prophylaxis: No pharmacological anticoagulation due to GIB SCD's Code Status: FULL CODE Per admitting provider's discussion with patient Disposition: Likely Discharge in 1-[address] Alcala for primary care Lives independently at [facility] PT/OT ordered for tomorrow/ once medically stable Needs 2 step PROCEDURES: EGD (02/05/2017) Findings: There appeared to be a clean based Linette Murray tear at the GE junction. There was a moderate ring at the GE junction; the ring was not dilated due to pt's resp status. The GE junction was at 37 cm. There was no esophagitis. There was a hiatal hernia. The stomach was normal. There was a patchy erythema in the duodenal bulb. Impression: - Clean based MW tear. Ring. Recommendation: - Discharge patient to floor. - I am not planning on repeating EGD to dilate ring, but may consider as outpt if pt has symptomatic dysphagia and his resp status improves. - Continue BID PPI x 2 weeks, then once daily indeterminately. - OK to resume aspirin. Hold Plavix x 7 days, then ok to resume. Echocardiogram The left ventricle is normal in size. There is moderate concentric left ventricular hypertrophy. The left ventricular wall motion is normal. Ejection Fraction = 65-70%. The left atrium is moderately dilated. The right atrium is moderately dilated. There is moderate to severe mitral regurgitation. There is moderate to severe tricuspid regurgitation. Right ventricular systolic pressure is elevated at 40-50mmHg. Vital Signs: Date Time Temp Pulse Resp B/P Pulse Ox O2 Delivery O2 Flow Rate FiO2 02/06/17 07:42 36.5 89 16 169/82 94 2.0 02/06/17 04:06 92 Nasal Cannula 2.0 02/06/17 03:09 36.8 82 22 159/78 92 Nasal Cannula 2.0 02/06/17 00:00 92 Nasal Cannula 2.0 02/05/17 23:23 36.9 82 24 145/84 92 Nasal Cannula 2.0 02/05/17 20:00 96 Room Air 02/05/17 19:36 37.0 80 20 148/75 96 Room Air 02/05/17 16:00 95 Nasal Cannula 2.0 02/05/17 15:27 36.6 90 20 138/84 96 Nasal Cannula 2.0 02/05/17 13:23 88 24 139/68 93 Nasal Cannula 3 02/05/17 13:05 90 24 151/66 94 Nasal Cannula 3 02/05/17 12:50 36.6 88 24 153/73 94 Nasal Cannula 6 02/05/17 12:15 36.9 78 24 174/78 94 Nasal Cannula 2 02/05/17 12:00 95 Nasal Cannula 2.0 02/05/17 10:44 36.7 85 17 144/76 86 Room Air 02/05/17 09:56 98 94 Lab Results: Results Past 24 Hours Test 02/06/17 06:23 Range/Units White Blood Count 5.03 4.8-10.8 K/uL Red Blood Count 4.46 4.7-6.1 M/uL Hemoglobin 11.1 14.0-18.0 g/dL Hematocrit 36.3 42-52 % Mean Corpuscular Volume 81.4 80-100 fL Mean Corpuscular Hemoglobin 24.9 25-34 pg Mean Corpuscular Hemoglobin Concent 30.6 32-36 g/dl Platelet Count 159 130-400 K/uL Mean Platelet Volume 9.3 7.4-10.4 fL Neutrophils (%) (Auto) 57.2 % Lymphocytes (%) (Auto) 23.3 % Monocytes (%) (Auto) 15.1 % Eosinophils (%) (Auto) 3.4 % Basophils (%) (Auto) 0.8 % Neutrophils # (Auto) 2.88 1.4-6.5 K/uL Lymphocytes # (Auto) 1.17 1.2-3.4 K/uL Monocytes # (Auto) 0.76 0.11-0.59 K/uL Eosinophils # (Auto) 0.17 0-0.5 K/uL Basophils # (Auto) 0.04 0-0.2 K/uL RDW Standard Deviation 51.9 36.4-46.3 fL RDW Coefficient of Variation 17.3 11.5-14.5 % Immature Granulocyte % (Auto) 0.2 % Immature Granulocyte # (Auto) 0.01 0.00-0.02 K/uL Sodium Level 146 136-145 mmol/L Potassium Level 3.8 3.5-5.1 mmol/L Chloride Level 108 98-107 mmol/L Carbon Dioxide Level 29 21-32 mmol/L Anion Gap 9.0 3-11 mmol/L Blood Urea Nitrogen 13 7-18 mg/dl Creatinine 0.92 0.60-1.40 mg/dl Est Creatinine Clear Calc Drug Dose 60.5 ml/min Estimated GFR () 90.1 Estimated GFR (Non- 77.7 BUN/Creatinine Ratio 14.2 10-20 Random Glucose 105 70-99 mg/dl Calcium Level 8.6 8.5-10.1 mg/dl Magnesium Level 2.1 1.8-2.4 mg/dl Pro-B-Type Natriuretic Peptide 9231 0-1800 pg/ml
--- NOTE | 2017-02-06 10:31 | Cardiology Follow-Up ---
Subjective Subjective Date of Service: Feb 06, 2017. Pt evaluation today including: conversation w/ patient, physical exam, chart review, lab review, review of studies, review of inpatient medication list Additional Details: Pt seen and examined, states that he feels well. No abdominal pain. Denies cp, sob, palpitations, lightheadedness or dizziness. Tele reviewed: atrial fibrillation, rate controlled Problem List Medical Problems: (1) Atrial fibrillation Status: Acute (2) Hypoxia Status: Acute (3) Pleural effusion Status: Acute (4) Pulmonary edema Status: Acute (5) Upper GI bleed Status: Acute Review of Systems Constitutional: No chills, No fever Respiratory: No cough, No dyspnea at rest, No dyspnea on exertion, No hemoptysis, No problem reported, No see HPI, No shortness of breath, No sputum, No wheezing Cardiac: No PND, No chest pain, No claudication, No edema, No orthopnea, No palpitations, No problem reported, No see HPI Objective Vital Signs Last Vital Signs Documentation Date Time Temp Pulse Resp B/P Pulse Ox O2 Delivery O2 Flow Rate FiO2 02/06/17 07:42 36.5 89 16 169/82 94 2.0 02/06/17 04:06 Nasal Cannula Physical Exam: General Appearance: WD/WN, no apparent distress Eyes: bilateral eyes EOMI, bilateral eyes PERRL, bilateral eyes normal inspection ENT: normal ENT inspection, pharynx normal, + pertinent finding (hard of hearing) Neck: supple, no adenopathy, thyroid normal, no JVD, no carotid bruits, trachea midline Respiratory/Chest: chest non-tender, lungs clear, normal breath sounds, no respiratory distress, no accessory muscle use Cardiovascular: no edema, no JVD, + irregularly irregular Abdomen: normal bowel sounds, non tender, soft, no organomegaly, no pulsatile mass Extremities: normal inspection, no pedal edema, no calf tenderness 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 acute decompensated systolic heart failure does not examine as volume overloaded will restart po lasix on prn basis only 2. afib new onset rate controlled discussed risk and benefit of anticoagulation, patient prefers to remain off anticoagulation does not wish to undergo cardioversion either 3. upper gi bleed appreciate GI input ok to hold plavix for 7 days from cardiac standpoint asa to be restarted 4. PAD
--- NOTE | 2017-02-06 11:37 | Gastroenterology Progress Note ---
Progress Note Date of Service: Feb 06, 2017 Subjective Pt evaluation today including: conversation w/ patient, physical exam, chart review, lab review, review of inpatient medication list Pt reports feeling well, denies any abd pain, n/v. He's still having intermittent bright red blood per rectum. Hgb stable between 10-11. Son reports to RN yesterday that pt has Crohn's disease. Pt states he's not on any med therapy for the Crohn's. Per Cardiology (Dr. Turner), ASA will be restarted. Review of Systems Constitutional: No chills, No fever Respiratory: No cough, No shortness of breath Cardiac: No chest pain, No edema Abdomen: + GI bleeding, + see HPI, No nausea, No pain, No vomiting Medications Current Inpatient Medications Medications (Trade) Dose Ordered Sig/Nathen Route Start Time Stop Time Status Last Admin Dose Admin Acetaminophen (Tylenol Tab) 650 mg Q4H PRN PO 02/01/17 02:00 03/03/17 01:59 Ondansetron HCl (Zofran Inj) 4 mg Q6H PRN IV 02/01/17 02:00 03/03/17 01:59 Escitalopram Oxalate (Lexapro Tab) 5 mg DAILY PO 02/01/17 09:00 03/03/17 08:59 02/06/17 08:58 5 MG Meclizine HCl (Antivert Tab) 25 mg TID PRN PO 02/01/17 02:15 03/03/17 02:14 Metoprolol Succinate (Toprol Xl Tab) 50 mg QAM PO 02/02/17 09:00 03/04/17 08:59 02/06/17 08:58 50 MG Nitroglycerin (Nitroglycerin 2% Oint) 0.5 inch Q6H EXT 02/02/17 12:00 03/04/17 11:14 02/06/17 11:15 0.5 INCH Amlodipine Besylate (Norvasc Tab) 5 mg QAM PO 02/03/17 09:00 03/05/17 08:59 02/06/17 08:58 5 MG Ferrous Sulfate (Feosol Tab) 325 mg BID PO 02/02/17 21:00 03/04/17 20:59 02/06/17 08:58 325 MG Ipratropium [place] (Atrovent Hfa Inhaler) 2 puffs Q6R INH 02/03/17 21:00 03/05/17 20:59 02/06/17 08:59 2 PUFFS Levalbuterol (Xopenex Hfa Inhaler) 2 puffs Q6R INH 02/03/17 21:00 03/05/17 20:59 02/06/17 08:59 2 PUFFS Ipratropium [place] (Atrovent 0.02% 0.5MG/2.5ML Neb) 0.5 mg Q6H PRN INH 02/03/17 17:00 03/05/17 16:59 Levalbuterol (Xopenex 1.25MG/ 0.5ML Neb) 1.25 mg Q6H PRN INH 02/03/17 17:00 03/05/17 16:59 Pantoprazole Sodium (Protonix Tab) 40 mg BID PO 02/04/17 21:00 03/06/17 20:59 02/06/17 08:57 40 MG Spironolactone (Aldactone Tab) 25 mg QAM PO 02/05/17 09:00 03/07/17 08:59 02/06/17 08:58 25 MG Hydrocortisone Acetate (Anusol Hc Supp) 25 mg DAILY MD 02/06/17 09:00 03/08/17 08:59 02/06/17 08:57 25 MG Loperamide HCl (Imodium Cap) 2 mg PRN PRN PO 02/05/17 17:45 03/07/17 17:44 Nicotine (Nicoderm Cq 14MG Patch) 1 patch QAM TD 02/06/17 09:00 03/08/17 08:59 02/06/17 08:34 1 PATCH Miscellaneous (Remove Nicoderm Patch) 1 ea HS N/A 02/06/17 21:00 03/08/17 20:59 Aspirin (Ecotrin Tab) 81 mg QAM PO 02/07/17 09:00 03/09/17 08:59 Furosemide (Lasix Tab) 20 mg QAM PRN PO 02/07/17 07:00 03/09/17 06:59 Objective Vital Signs Date Time Temp Pulse Resp B/P Pulse Ox O2 Delivery O2 Flow Rate FiO2 02/06/17 10:31 37.1 98 16 163/94 90 Room Air 02/06/17 07:42 36.5 89 16 169/82 94 2.0 02/06/17 04:06 92 Nasal Cannula 2.0 02/06/17 03:09 36.8 82 22 159/78 92 Nasal Cannula 2.0 02/06/17 00:00 92 Nasal Cannula 2.0 02/05/17 23:23 36.9 82 24 145/84 92 Nasal Cannula 2.0 02/05/17 20:00 96 Room Air 02/05/17 19:36 37.0 80 20 148/75 96 Room Air 02/05/17 16:00 95 Nasal Cannula 2.0 02/05/17 15:27 36.6 90 20 138/84 96 Nasal Cannula 2.0 02/05/17 13:23 88 24 139/68 93 Nasal Cannula 3 02/05/17 13:05 90 24 151/66 94 Nasal Cannula 3 02/05/17 12:50 36.6 88 24 153/73 94 Nasal Cannula 6 02/05/17 12:15 36.9 78 24 174/78 94 Nasal Cannula 2 02/05/17 12:00 95 Nasal Cannula 2.0 Physical Exam General Appearance: WD/WN, no apparent distress Eyes: normal inspection, PERRL, EOMI Neck: supple, no JVD, trachea midline Respiratory/Chest: no respiratory distress, no accessory muscle use, + wheezing (scattered) Cardiovascular: regular rate, rhythm, no gallop, no murmur Abdomen: normal bowel sounds, non tender, soft Extremities: normal inspection, no calf tenderness, + swelling (+2 pitting edema) Neurologic/Psych: alert, normal mood/affect, oriented x 3 Skin: normal color, no jaundice, no rash Laboratory Results Last 24 Hours Test 02/06/17 06:23 White Blood Count 5.03 K/uL Red Blood Count 4.46 M/uL Hemoglobin 11.1 g/dL Hematocrit 36.3 % Mean Corpuscular Volume 81.4 fL Mean Corpuscular Hemoglobin 24.9 pg Mean Corpuscular Hemoglobin Concent 30.6 g/dl Platelet Count 159 K/uL Mean Platelet Volume 9.3 fL Neutrophils (%) (Auto) 57.2 % Lymphocytes (%) (Auto) 23.3 % Monocytes (%) (Auto) 15.1 % Eosinophils (%) (Auto) 3.4 % Basophils (%) (Auto) 0.8 % Neutrophils # (Auto) 2.88 K/uL Lymphocytes # (Auto) 1.17 K/uL Monocytes # (Auto) 0.76 K/uL Eosinophils # (Auto) 0.17 K/uL Basophils # (Auto) 0.04 K/uL RDW Standard Deviation 51.9 fL RDW Coefficient of Variation 17.3 % Immature Granulocyte % (Auto) 0.2 % Immature Granulocyte # (Auto) 0.01 K/uL Sodium Level 146 mmol/L Potassium Level 3.8 mmol/L Chloride Level 108 mmol/L Carbon Dioxide Level 29 mmol/L Anion Gap 9.0 mmol/L Blood Urea Nitrogen 13 mg/dl Creatinine 0.92 mg/dl Est Creatinine Clear Calc Drug Dose 60.5 ml/min Estimated GFR () 90.1 Estimated GFR (Non- 77.7 BUN/Creatinine Ratio 14.2 Random Glucose 105 mg/dl Calcium Level 8.6 mg/dl Magnesium Level 2.1 mg/dl Pro-B-Type Natriuretic Peptide 9231 pg/ml Assessment and Plan Patient is a 81 year old male currently admitted for CHF and hematemesis. Hgb around 11 which is his baseline since 2014. He had been having pain along his esophagus, epigastric area for a week associated also w odynophagia, nausea but no dysphagia. EGD on 02/05/17 showed clean based Linette Murray tear, GE junction ring (no dilation done). EGD was done under conscious sedations. Hgb stable between 10-11. He's tolerating [place] diet w/o dysphagia, odynophagia. Asking for more solid food to eat. - Advanced to AHA, low sodium, diabetic diet - Continue Protonix 40mg BID x 2 weeks, then daily - Ok to resume ASA, recommend holding Plavix x 7 days. - Discussed colonoscopy eval w pt for his intermittent rectal bleeding and hx of Crohn's. He had been hesitant to having this done. Discussed w Dr. Cano of possible indication of this procedure -> Given pt's complicated cardiac hx and high risk for anesthesia (only had conscious sedation for EGD yesterday given risk), do not recommend colonoscopy at this time unless emergency.
[2017-02-07] VITALS (11 sets, daily range): BP systolic 102–166; BP diastolic 64–97; PULSE 75–97; TEMP 36.5–37; O2SAT 86–97
[2017-02-07] MEDS: IPRATROPIUM BROMIDE HFA INHALER INH SCH ×4 (03:00→20:20)
[2017-02-07] MEDS: LEValbuterol HFA 15GM INHALER INH SCH ×4 (03:00→20:20)
[2017-02-07] MEDS: NITROGLYCERIN OINT 2% 1GM PACKET EXT SCH ×3 (06:11→18:00)
[2017-02-07] MEDS ORDERED: FUROSEMIDE 20 MG TAB PO PRN (07:00)
[2017-02-07] MEDS: ASPIRIN 81 MG ECTAB PO SCH (08:11)
[2017-02-07] MEDS: AMLODIPINE BESYLATE 5 MG TAB PO SCH (08:11)
[2017-02-07] MEDS: METOPROLOL SUCC 50MG EXT REL TAB PO SCH (08:11)
[2017-02-07] MEDS: ESCITALOPRAM OXALATE 10 MG TAB PO SCH (08:11)
[2017-02-07] MEDS: PANTOprazole SOD 40 MG TAB PO SCH ×2 (08:12→20:21)
[2017-02-07] MEDS: HYDROCORTISONE ACETATE 25 MG SUPP PR SCH (08:13)
[2017-02-07] MEDS: FERROUS SULFATE 325 MG TAB PO SCH ×2 (08:13→20:21)
[2017-02-07] MEDS: SPIRONOLACTONE 25 MG TAB PO SCH (08:14)
[2017-02-07] MEDS: NICOTINE 14 MG/24 HR TDSY TD SCH (08:15)
--- NOTE | 2017-02-07 09:57 | Cardiology Follow-Up ---
Subjective Subjective Date of Service: Feb 07, 2017. Pt evaluation today including: conversation w/ patient, physical exam, chart review, lab review, review of studies, review of inpatient medication list Additional Details: Pt seen and examined, states that he feels well. Denies cp, sob, palpitations, lightheadedness or dizziness. Tele reviewed: atrial fibrillation, rate controlled. Problem List Medical Problems: (1) Atrial fibrillation Status: Acute (2) Hypoxia Status: Acute (3) Pleural effusion Status: Acute (4) Pulmonary edema Status: Acute (5) Upper GI bleed Status: Acute Review of Systems Constitutional: No chills, No fever Respiratory: No cough, No shortness of breath Cardiac: No chest pain, No edema Objective Vital Signs Last Vital Signs Documentation Date Time Temp Pulse Resp B/P Pulse Ox O2 Delivery O2 Flow Rate FiO2 02/07/17 06:55 36.9 94 20 163/92 92 Nasal Cannula 2.0 162/97 Physical Exam: General Appearance: WD/WN, no apparent distress Eyes: bilateral eyes EOMI, bilateral eyes PERRL, bilateral eyes normal inspection ENT: normal ENT inspection, pharynx normal, + pertinent finding (hard of hearing) Neck: supple, no adenopathy, thyroid normal, no JVD, no carotid bruits, trachea midline Respiratory/Chest: chest non-tender, lungs clear, normal breath sounds, no respiratory distress, no accessory muscle use Cardiovascular: no edema, no JVD, + irregularly irregular Abdomen: normal bowel sounds, non tender, soft, no organomegaly, no pulsatile mass Extremities: normal inspection, no pedal edema, no calf tenderness 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 acute decompensated systolic heart failure does not examine as volume overloaded will restart po lasix on prn basis only 2. afib new onset rate controlled discussed risk and benefit of anticoagulation, patient prefers to remain off anticoagulation does not wish to undergo cardioversion either 3. upper gi bleed appreciate GI input ok to hold plavix for 7 days from cardiac standpoint asa to be restarted 4. PAD Ok to d/c to assisted from cardiac standpoint. cardiac follow up in 3-4 weeks
--- NOTE | 2017-02-07 10:48 | Cardiology Follow-Up ---
Subjective Subjective Date of Service: Feb 07, 2017. Pt evaluation today including: conversation w/ patient, physical exam, chart review, lab review, review of studies, review of inpatient medication list Additional Details: Pt seen and examined, states that he feels well, anxious to be discharged. Denies cp, sob, palpitations, lightheadedness or dizziness. tele reviewed: atrial fibrillation rate controlled. Problem List Medical Problems: (1) Atrial fibrillation Status: Acute (2) Hypoxia Status: Acute (3) Pleural effusion Status: Acute (4) Pulmonary edema Status: Acute (5) Upper GI bleed Status: Acute Review of Systems Constitutional: No chills, No fever Respiratory: No cough, No shortness of breath Cardiac: No chest pain, No edema Objective Vital Signs Last Vital Signs Documentation Date Time Temp Pulse Resp B/P Pulse Ox O2 Delivery O2 Flow Rate FiO2 02/07/17 06:55 36.9 94 20 163/92 92 Nasal Cannula 2.0 162/97 Physical Exam: General Appearance: WD/WN, no apparent distress Eyes: bilateral eyes EOMI, bilateral eyes PERRL, bilateral eyes normal inspection ENT: normal ENT inspection, pharynx normal, + pertinent finding (hard of hearing) Neck: supple, no adenopathy, thyroid normal, no JVD, no carotid bruits, trachea midline Respiratory/Chest: chest non-tender, lungs clear, normal breath sounds, no respiratory distress, no accessory muscle use Cardiovascular: no edema, no JVD, + irregularly irregular Abdomen: normal bowel sounds, non tender, soft, no organomegaly, no pulsatile mass Extremities: normal inspection, no pedal edema, no calf tenderness Neurologic/Psychiatric: [employer] II-XII nml as tested, no motor/sensory deficits, alert, normal mood/affect, oriented x 3 Skin: normal color, warm/dry, no rash Lymphatic: no adenopathy Assessment and Plan 1. acute decompensated systolic heart failure does not examine as volume overloaded po lasix on prn basis only 2. afib new onset rate controlled discussed risk and benefit of anticoagulation, patient prefers to remain off anticoagulation does not wish to undergo cardioversion either 3. upper gi bleed appreciate GI input ok to hold plavix for 7 days from cardiac standpoint asa to be restarted 4. PAD Ok to d/c to custodial from cardiac standpoint. cardiac follow up in 3-4 weeks
--- NOTE | 2017-02-07 11:30 | Gastroenterology Progress Note ---
Progress Note Date of Service: Feb 07, 2017 Subjective Pt evaluation today including: conversation w/ patient, conversation w/ family , physical exam, chart review, lab review, review of studies, review of inpatient medication list Mr. Goodman is an 81 yr old male pt admitted on 02/01/17 for CHF, hematemesis. Hb on arrival 11.1 and remains the same w/o having received transfusions. EGD on with Linette Murray tear. Colonoscopy deferred due to CHF and because no further gross GI bleeding since arrival. Pt sitting up in a chair. Eating regular consistency diet. No vomiting since arrival. Two BMs yesterday, first with small amts of red blood on a brown BM, second brown. Review of Systems Constitutional: No fever Eyes: No worsening of vision Respiratory: + shortness of breath (mild, chronic, at baseline today), No cough Cardiac: No chest pain Abdomen: + diarrhea (loose stool yesterday), + nausea (resolved), + vomiting ( resolved), No pain Male : No dysuria Neuro: No memory loss Psych: No depression symptoms Heme: No abnormal bleeding/bruising Endo: + fatigue (mild, chronic, at baseline today) Skin: No color change, No jaundice, No new/changing skin lesions, No rash Medications Current Inpatient Medications Medications (Trade) Dose Ordered Sig/Nathen Route Start Time Stop Time Status Last Admin Dose Admin Acetaminophen (Tylenol Tab) 650 mg Q4H PRN PO 02/01/17 02:00 03/03/17 01:59 Ondansetron HCl (Zofran Inj) 4 mg Q6H PRN IV 02/01/17 02:00 03/03/17 01:59 Escitalopram Oxalate (Lexapro Tab) 5 mg DAILY PO 02/01/17 09:00 03/03/17 08:59 02/07/17 08:11 5 MG Meclizine HCl (Antivert Tab) 25 mg TID PRN PO 02/01/17 02:15 03/03/17 02:14 Metoprolol Succinate (Toprol Xl Tab) 50 mg QAM PO 02/02/17 09:00 03/04/17 08:59 02/07/17 08:11 50 MG Nitroglycerin (Nitroglycerin 2% Oint) 0.5 inch Q6H EXT 02/02/17 12:00 03/04/17 11:14 3/15/17 06:11 0.5 INCH Amlodipine Besylate (Norvasc Tab) 5 mg QAM PO 02/03/17 09:00 03/05/17 08:59 02/07/17 08:11 5 MG Ferrous Sulfate (Feosol Tab) 325 mg BID PO 02/02/17 21:00 03/04/17 20:59 02/07/17 08:13 325 MG Ipratropium [place] (Atrovent Hfa Inhaler) 2 puffs Q6R INH 02/03/17 21:00 03/05/17 20:59 02/07/17 08:18 2 PUFFS Levalbuterol (Xopenex Hfa Inhaler) 2 puffs Q6R INH 02/03/17 21:00 03/05/17 20:59 02/07/17 08:18 2 PUFFS Ipratropium [place] (Atrovent 0.02% 0.5MG/2.5ML Neb) 0.5 mg Q6H PRN INH 02/03/17 17:00 03/05/17 16:59 Levalbuterol (Xopenex 1.25MG/ 0.5ML Neb) 1.25 mg Q6H PRN INH 02/03/17 17:00 03/05/17 16:59 Pantoprazole Sodium (Protonix Tab) 40 mg BID PO 02/04/17 21:00 03/06/17 20:59 02/07/17 08:12 40 MG Spironolactone (Aldactone Tab) 25 mg QAM PO 02/05/17 09:00 03/07/17 08:59 02/07/17 08:14 25 MG Hydrocortisone Acetate (Anusol Hc Supp) 25 mg DAILY [place] 02/06/17 09:00 03/08/17 08:59 02/07/17 08:13 25 MG Loperamide HCl (Imodium Cap) 2 mg PRN PRN PO 02/05/17 17:45 03/07/17 17:44 Nicotine (Nicoderm Cq 14MG Patch) 1 patch QAM TD 02/06/17 09:00 03/08/17 08:59 02/07/17 08:15 1 PATCH Miscellaneous (Remove Nicoderm Patch) 1 ea HS N/A 02/06/17 21:00 03/08/17 20:59 02/06/17 20:44 1 EA Aspirin (Ecotrin Tab) 81 mg QAM PO 02/07/17 09:00 03/09/17 08:59 02/07/17 08:11 81 MG Furosemide (Lasix Tab) 20 mg QAM PRN PO 02/07/17 07:00 03/09/17 06:59 02/07/17 10:31 20 MG Objective Vital Signs Date Time Temp Pulse Resp B/P Pulse Ox O2 Delivery O2 Flow Rate FiO2 02/07/17 08:00 92 Nasal Cannula 2.0 02/07/17 06:55 36.9 94 20 163/92 92 Nasal Cannula 2.0 162/97 02/07/17 04:00 91 Nasal Cannula 2.0 02/07/17 02:49 36.5 89 22 166/80 91 Nasal Cannula 2.0 02/07/17 00:00 91 Nasal Cannula 2.0 02/06/17 23:03 36.7 82 18 153/75 91 Nasal Cannula 2.0 02/06/17 20:04 36.4 77 16 177/81 91 Nasal Cannula 2.0 02/06/17 20:00 91 Nasal Cannula 2.0 02/06/17 16:00 92 Nasal Cannula 2.0 02/06/17 15:32 36.6 60 20 167/60 92 Nasal Cannula 2.0 02/06/17 12:00 91 Nasal Cannula 2.0 02/06/17 11:59 36.6 97 16 161/88 98 2.0 Physical Exam General Appearance: no apparent distress ENT: pharynx normal Neck: thyroid normal, no JVD Respiratory/Chest: lungs clear Cardiovascular: regular rate, rhythm, no JVD, + systolic murmur (2/6 murmur) Abdomen: non tender, soft Extremities: normal inspection, no pedal edema Neurologic/Psych: alert, normal mood/affect, oriented x 3 Skin: no jaundice, warm/dry Laboratory Results WBC 5.03, Hb 11.1, platelets 159, Na 146, K 3.8, BUN 13, Cr 0.8, BNP 9231. Assessment and Plan Mr. Goodman is an 81 yr old male admitted with hematemesis caused by Linette Murray tear. He also has some hematochezia but Hb is stable w/o transfusion. Differentials for hematochezia include diverticular bleed, colon AVM, hemorrhoidal. Plan: 1. Protonix BID x 1 month then daily. 2. OK to restart the ASA. Hold Xarelto x 6 more days. 3. Regular consistency diet. 4. Would defer colonoscopy due to CHF unless he begins with brisk gross GI bleeding and drop in Hb. 5. GI will sign off. Please notify us if worsened gross GI bleeding, if drop in Hb or if new GI issues.
--- NOTE | 2017-02-07 17:06 | Progress Note ---
Internal Med Progress Note Date of Service: Feb 07, 2017. Provider Documentation: SUBJECTIVE: Patient is seen and examined at bedside. Doing well. Offers no complaints. Eager to get discharged. Denies any chest pain, SOB, palpitations, hematemesis. OBJECTIVE: Vital Signs-as noted below Physical Exam: Vitals signs as noted above General Appearance:Moderately built and nourished, no apparent distress Head: normocephalic, Atraumatic Eyes: normal inspection, EOMI, PERRLA Neck: supple, Trachea midline Respiratory/Chest: Decreased breath sounds, CTA Cardiovascular: Irregularly, irregular, No murmur Abdomen/GI:Soft, Non tender, Bowel sounds present Extremities/Musculoskelatal:normal inspection, 1+ B/L edema Neurologic/Psych:AAOX3, grossly no focal neurological deficits Skin: normal color, warm Lab data as noted below. ASSESSMENT & PLAN: Upper GI Bleed and Hematochezia: Upper GI bleed likely secondary to Linette Murray tear at the GE junction S/P EGD: findings as below Hb stable, Baseline Hg approx 11-12 No further GI bleeding after admission Continue Aspirin To resume Plavix in 7 days Continue Protonix BID for 4 weeks and then daily Monitor Hb Appreciate GI input GI defers colonoscopy for now. May need to be done as outpatient. Acute Exacerbation of Chronic Diastolic CHF: Clinically improved Continue lasix PRN and spironolactone per cardiology Cardiac markers negative x 3 Monitoring I's & O's, daily weight Appreciate Cardiology help Continues to require oxygen 2 liters Needs 2 step prior to discharge Titrate off oxygen as able ? Internal hemorrhoids: On Anusol CKD II: Monitor Cr levels Avoid Nephrotoxic agents H/O Atrial Fibrillation: Rate controlled. 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 Re-start Plavix after 7 days. Continue beta nuris History CVA/Cerebellar hemorrhage: Stable. Nocturnal Frequency: UA is normal.?? BPH vs secondary to diuretics Post void bladder scan WNL HbA1c = 6.4 DVT Prophylaxis: No pharmacological anticoagulation due to GIB SCD's Code Status: FULL CODE Per admitting provider's discussion with patient Disposition: Plan to discharge when placement available Follows with Dr. Alcala for primary care Lives independently at [facility] PT/OT Needs 2 step prior to DC PROCEDURES: EGD (02/05/2017) Findings: There appeared to be a clean based Linette Murray tear at the GE junction. There was a moderate ring at the GE junction; the ring was not dilated due to pt's resp status. The GE junction was at 37 cm. There was no esophagitis. There was a hiatal hernia. The stomach was normal. There was a patchy erythema in the duodenal bulb. Impression: - Clean based MW tear. Ring. Recommendation: - Discharge patient to floor. - I am not planning on repeating EGD to dilate ring, but may consider as outpt if pt has symptomatic dysphagia and his resp status improves. - Continue BID PPI x 2 weeks, then once daily indeterminately. - OK to resume aspirin. Hold Plavix x 7 days, then ok to resume. Echocardiogram The left ventricle is normal in size. There is moderate concentric left ventricular hypertrophy. The left ventricular wall motion is normal. Ejection Fraction = 65-70%. The left atrium is moderately dilated. The right atrium is moderately dilated. There is moderate to severe mitral regurgitation. There is moderate to severe tricuspid regurgitation. Right ventricular systolic pressure is elevated at 40-50mmHg. Vital Signs: Date Time Temp Pulse Resp B/P Pulse Ox O2 Delivery O2 Flow Rate FiO2 02/07/17 16:27 36.7 75 16 130/73 97 Nasal Cannula 2.0 02/07/17 12:00 Room Air 02/07/17 10:55 37.0 80 20 136/73 91 Room Air 02/07/17 08:00 92 Nasal Cannula 2.0 02/07/17 06:55 36.9 94 20 163/92 92 Nasal Cannula 2.0 162/97 02/07/17 04:00 91 Nasal Cannula 2.0 02/07/17 02:49 36.5 89 22 166/80 91 Nasal Cannula 2.0 02/07/17 00:00 91 Nasal Cannula 2.0 02/06/17 23:03 36.7 82 18 153/75 91 Nasal Cannula 2.0 02/06/17 20:04 36.4 77 16 177/81 91 Nasal Cannula 2.0 02/06/17 20:00 91 Nasal Cannula 2.0
[2017-02-08] VITALS (7 sets, daily range): BP systolic 134–166; BP diastolic 67–90; PULSE 78–101; TEMP 36.5–37; O2SAT 90–96
[2017-02-08] MEDS: NITROGLYCERIN OINT 2% 1GM PACKET EXT SCH ×3 (00:29→12:21)
[2017-02-08] MEDS: LEValbuterol HFA 15GM INHALER INH SCH ×2 (03:00→08:43)
[2017-02-08] MEDS: IPRATROPIUM BROMIDE HFA INHALER INH SCH ×2 (03:00→08:43)
[2017-02-08 07:10] LABS: MEAN CORPUSCULAR HEMOGLOBIN 25.2 pg (25-34); MEAN CORPUSCULAR HGB CONC 31.1 g/dl (32-36); MEAN PLATELET VOLUME 9.3 fL (7.4-10.4); PLATELET COUNT 167 K/uL (130-400); RED BLOOD COUNT 4.32 M/uL (4.7-6.1); WHITE BLOOD COUNT 6.89 K/uL (4.8-10.8)
[2017-02-08 07:45] LABS: CREATININE 0.97 mg/dl (0.60-1.40)
[2017-02-08 07:46] LABS: CALCIUM 8.7 mg/dl (8.5-10.1); POTASSIUM 3.6 mmol/L (3.5-5.1)
[2017-02-08] MEDS: SPIRONOLACTONE 25 MG TAB PO SCH (08:44)
[2017-02-08] MEDS: ASPIRIN 81 MG ECTAB PO SCH (08:44)
[2017-02-08] MEDS: PANTOprazole SOD 40 MG TAB PO SCH (08:45)
[2017-02-08] MEDS: ESCITALOPRAM OXALATE 10 MG TAB PO SCH (08:45)
[2017-02-08] MEDS: AMLODIPINE BESYLATE 5 MG TAB PO SCH (08:45)
[2017-02-08] MEDS: FERROUS SULFATE 325 MG TAB PO SCH (08:45)
[2017-02-08] MEDS: METOPROLOL SUCC 50MG EXT REL TAB PO SCH (08:46)
[2017-02-08] MEDS: HYDROCORTISONE ACETATE 25 MG SUPP PR SCH (08:46)
[2017-02-08] MEDS: NICOTINE 14 MG/24 HR TDSY TD SCH (08:47)
--- NOTE | 2017-02-08 08:52 | Progress Note ---
Internal Med Progress Note Date of Service: Feb 08, 2017. Provider Documentation: SUBJECTIVE: Patient is seen and examined at bedside. Denies any chest pain, SOB, palpitations, hematemesis or blood in stools. Doing well. Offers no complaints. OBJECTIVE: Vital Signs-as noted below Physical Exam: Vitals signs as noted above General Appearance:Moderately built and nourished, no apparent distress Head: normocephalic, Atraumatic Eyes: normal inspection, EOMI, PERRLA Neck: supple, Trachea midline Respiratory/Chest: Mild creps at bases, B/L air entry Cardiovascular: Irregularly, irregular, No murmur Abdomen/GI:Soft, Non tender, Bowel sounds present Extremities/Musculoskelatal:normal inspection, 1+ B/L edema Neurologic/Psych:AAOX3, grossly no focal neurological deficits Skin: normal color, warm Lab data as noted below. ASSESSMENT & PLAN: Upper GI Bleed and Hematochezia: Upper GI bleed likely secondary to Linette Murray tear at the GE junction S/P EGD: findings as below Hb stable, Baseline Hg approx 11-12 No further GI bleeding Continue Aspirin To resume Plavix in 7 days Continue Protonix BID for 4 weeks and then daily Monitor Hb Appreciate GI input GI defers colonoscopy for now. Needs to be done as outpatient. Acute Exacerbation of Chronic Diastolic CHF: Clinically improved, no signs of volume overload Continue lasix PRN and spironolactone per cardiology Cardiac markers negative x 3 Monitoring I's & O's, daily weight Appreciate Cardiology help Currently saturates 92% on RA ? Internal hemorrhoids: S/P Anusol Refused anusol, will discontinue CKD II: Cr levels wnl Monitor renal function Avoid Nephrotoxic agents H/O Atrial Fibrillation: Rate controlled. 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 Re-start Plavix after 7 days. Continue beta nuris History CVA/Cerebellar hemorrhage: Stable. DVT Px: No pharmacological anticoagulation due to GIB SCD's Code Status: FULL CODE Disposition: Plan to discharge to SNF today Follow up with Dr. Alcala for primary care on 02/15/17 at 10:50AM Follow up with cardiology on 02/27/17 at 10:30AM Follow up with GI as outpatient for possible colonoscopy per recommendations from PCP PROCEDURES: EGD (02/05/2017) Findings: There appeared to be a clean based Linette Murray tear at the GE junction. There was a moderate ring at the GE junction; the ring was not dilated due to pt's resp status. The GE junction was at 37 cm. There was no esophagitis. There was a hiatal hernia. The stomach was normal. There was a patchy erythema in the duodenal bulb. Impression: - Clean based MW tear. Ring. Recommendation: - Discharge patient to floor. - I am not planning on repeating EGD to dilate ring, but may consider as outpt if pt has symptomatic dysphagia and his resp status improves. - Continue BID PPI x 2 weeks, then once daily indeterminately. - OK to resume aspirin. Hold Plavix x 7 days, then ok to resume. Echocardiogram The left ventricle is normal in size. There is moderate concentric left ventricular hypertrophy. The left ventricular wall motion is normal. Ejection Fraction = 65-70%. The left atrium is moderately dilated. The right atrium is moderately dilated. There is moderate to severe mitral regurgitation. There is moderate to severe tricuspid regurgitation. Right ventricular systolic pressure is elevated at 40-50mmHg. Vital Signs: Date Time Temp Pulse Resp B/P Pulse Ox O2 Delivery O2 Flow Rate FiO2 02/08/17 12:00 93 Room Air 02/08/17 11:25 36.6 83 20 156/77 93 Room Air 02/08/17 07:55 Nasal Cannula 2.0 02/08/17 07:20 36.7 101 20 166/88 96 Nasal Cannula 2.0 166/77 02/08/17 04:05 36.9 101 20 146/90 96 Nasal Cannula 2.0 02/08/17 04:00 Nasal Cannula 2.0 02/08/17 00:10 37.0 78 20 134/67 94 Nasal Cannula 2.0 02/07/17 23:59 Nasal Cannula 2.0 02/07/17 22:30 86 Room Air 02/07/17 21:35 36.6 97 20 102/64 91 Nasal Cannula 2.0 02/07/17 20:00 96 Room Air 2.0 02/07/17 16:27 36.7 75 16 130/73 97 Nasal Cannula 2.0 02/07/17 16:00 95 Room Air 2.0 Lab Results: Results Past 24 Hours Test 02/08/17 06:39 Range/Units White Blood Count 6.89 4.8-10.8 K/uL Red Blood Count 4.32 4.7-6.1 M/uL Hemoglobin 10.9 14.0-18.0 g/dL Hematocrit 35.0 42-52 % Mean Corpuscular Volume 81.0 80-100 fL Mean Corpuscular Hemoglobin 25.2 25-34 pg Mean Corpuscular Hemoglobin Concent 31.1 32-36 g/dl RDW Standard Deviation 52.3 36.4-46.3 fL RDW Coefficient of Variation 17.5 11.5-14.5 % Platelet Count 167 130-400 K/uL Mean Platelet Volume 9.3 7.4-10.4 fL Sodium Level 144 136-145 mmol/L Potassium Level 3.6 3.5-5.1 mmol/L Chloride Level 104 98-107 mmol/L Carbon Dioxide Level 32 21-32 mmol/L Anion Gap 8.0 3-11 mmol/L Blood Urea Nitrogen 13 7-18 mg/dl Creatinine 0.97 0.60-1.40 mg/dl Est Creatinine Clear Calc Drug Dose 56.6 ml/min Estimated GFR () 84.5 Estimated GFR (Non- 72.9 BUN/Creatinine Ratio 13.0 10-20 Random Glucose 100 70-99 mg/dl Calcium Level 8.7 8.5-10.1 mg/dl
[2017-02-08] MEDS ORDERED: TPRSR50 PO (14:23)
[2017-02-08] MEDS ORDERED: FRRS300 PO (14:23)
[2017-02-08] MEDS ORDERED: SPR25 PO (14:23)
[2017-02-08] MEDS ORDERED: PRT40 PO (14:23)
[2017-02-08] MEDS ORDERED: NRV5 PO (14:23)
--- NOTE | 2017-02-08 14:32 | Discharge Summary ---
Discharge Summary Date of Service Feb 08, 2017. Discharge Summary Admission Date: Feb 01, 2017 at 01:40 Discharge Date: Feb 08, 2017 Discharge Disposition: alf facility Principal Diagnosis: CHF, Upper GI bleed Procedures: EGD (02/05/2017) Findings: There appeared to be a clean based Linette Murray tear at the GE junction. There was a moderate ring at the GE junction; the ring was not dilated due to pt's resp status. The GE junction was at 37 cm. There was no esophagitis. There was a hiatal hernia. The stomach was normal. There was a patchy erythema in the duodenal bulb. Impression: - Clean based MW tear. Ring. Recommendation: - Discharge patient to floor. - I am not planning on repeating EGD to dilate ring, but may consider as outpt if pt has symptomatic dysphagia and his resp status improves. - Continue BID PPI x 2 weeks, then once daily indeterminately. - OK to resume aspirin. Hold Plavix x 7 days, then ok to resume. Echocardiogram The left ventricle is normal in size. There is moderate concentric left ventricular hypertrophy. The left ventricular wall motion is normal. Ejection Fraction = 65-70%. The left atrium is moderately dilated. The right atrium is moderately dilated. There is moderate to severe mitral regurgitation. There is moderate to severe tricuspid regurgitation. Right ventricular systolic pressure is elevated at 40-50mmHg. CXR: FINDINGS: Moderate cardiomegaly. Bilateral pleural effusions. Comment pulmonary vasculature. IMPRESSION: Congestive heart failure Consultations: Cardiology, GI Pending Studies/Follow-Up: Follow up with Dr. Alcala for primary care on 02/15/17 at 10:50AM Follow up with cardiology on 02/27/17 at 10:30AM Follow up with GI as outpatient for possible colonoscopy per recommendations from PCP Medication Reconciliation New Medications: Amlodipine Besylate (Amlodipine Besylate) 5 Mg Tab 5 MG PO QAM for 30 Days, #30 TAB Ferrous Sulfate (Ferrous Sulfate) 325 Mg Tab 325 MG PO BID for 30 Days, #60 TAB Metoprolol Succinate (Metoprolol Succinate ER) 50 Mg Tabcr 50 MG PO QAM for 30 Days, #30 Pantoprazole (Pantoprazole Sodium) 40 Mg Tab 40 MG PO BID for 30 Days, #60 TAB Spironolactone (Spironolactone) 25 Mg Tab 25 MG PO QAM for 30 Days, #30 TAB Continued Medications: Aspirin (Aspirin) 81 Mg Tab 81 MG PO QAM Atorvastatin (Lipitor) 20 Mg Tab 20 MG PO QAM, TAB Clopidogrel (Plavix) 75 Mg Tab 75 MG PO QAM, TAB Escitalopram Oxalate (Lexapro) 5 Mg Tab 5 MG PO DAILY, TAB Furosemide (Lasix) 20 Mg Tab 20 MG PO DAILY PRN for WIEGHT GAIN,FLUID ACCUMULATION, TAB Meclizine Hcl (Meclizine Hcl) 25 Mg Tab 25 MG PO TID PRN for Dizziness or Vertigo, TAB Nitroglycerin (Nitrostat) 0.4 Mg Sub 0.4 MG UT PRN, BTL NEEDED FOR CHEST PAIN : ONE TAB UNDER THE TONGUE EVRY 5 MINUTES UP TO 3 DOSES. Discontinued Medications: Amlodipine (Norvasc) 10 Mg Tab 10 MG PO QAM, TAB Atenolol (Tenormin) 50 Mg Tab 50 MG PO QAM, TAB Admission Information HPI (per Admitting provider): 81 year old male with history of CAD s/p CABG in 1990, Atrial Fibrillation on Aspirin and Plavix, history of CVA, Cereberallar Hemorrhage presenting with hematemesis starting this evening. Follows with Dr. Alcala for Primary Care and Dr. Perea for Cardiology. Patient was apparently at his usual state of health until around 1130pm, while preparing to go to bed, patient had a sudden onset of epigastric pain followed by hematemesis, around 1 cup. Ambulance summoned and patient was brought to the ED. Also, he reports at least 1 week history of shortness of breath associated with chest pain on exertion. Denies dizziness, weakness, palpitations. No fever/ chills, coughs, sputum. At the ED, patient was hypoxic at 83% on room air. CXR showed bilateral pulmonary edema. He was given Lasix 40mg IV, and started on Protonix drip. On my exam, patient was resting, comfortable on 2 liters of nasal cannula. Denies active chest pain, dyspnea, nausea, abdominal pain. Had 1 recurrence of hematemesis at the ER. Physical Exam (per Admitting): General Appearance: WD/WN, no apparent distress Head: normocephalic, atraumatic Eyes: normal inspection, EOMI, sclerae normal ENT: normal ENT inspection, hearing grossly normal, pharynx normal Neck: supple, no adenopathy, thyroid normal, + JVD (mild) Respiratory/Chest: chest non-tender, no respiratory distress, no accessory muscle use, + rales (mild at the bases), + wheezing (mild bilaterally) Cardiovascular: + irregularly irregular Abdomen/GI: normal bowel sounds, non tender, soft Extremities/Musculoskelatal: no calf tenderness, normal capillary refill, normal range of motion, + pertinent finding (grade 1 lower leg edema) Neurologic/Psych: supervisor heading II-XII nml as tested, no motor/sensory deficits, alert , normal mood/affect, normal reflexes, oriented x 3 Skin: normal color, warm/dry, no rash Hospital Course Upper GI Bleed and Hematochezia: Upper GI bleed likely secondary to Linette Murray tear at the GE junction S/P EGD: findings as below Hb stable, Baseline Hg approx 11-12 No further GI bleeding Continue Aspirin To resume Plavix in 7 days Continue Protonix BID for 4 weeks and then daily Monitor Hb Appreciate GI input GI defers colonoscopy for now. Needs to be done as outpatient. Acute Exacerbation of Chronic Diastolic CHF: Clinically improved, no signs of volume overload Continue lasix PRN and spironolactone per cardiology Cardiac markers negative x 3 Monitoring I's & O's, daily weight Appreciate Cardiology help Currently saturates 92% on RA ? Internal hemorrhoids: S/P Anusol Refused anusol, will discontinue CKD II: Cr levels wnl Monitor renal function Avoid Nephrotoxic agents H/O Atrial Fibrillation: Rate controlled. 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 Re-start Plavix after 7 days. Continue beta nuris History CVA/Cerebellar hemorrhage: Stable. DVT Px: No pharmacological anticoagulation due to GIB SCD's Code Status: FULL CODE Disposition: Plan to discharge to SNF today Follow up with Dr. Alcala for primary care on 02/15/17 at 10:50AM Follow up with cardiology on 02/27/17 at 10:30AM Follow up with GI as outpatient for possible colonoscopy per recommendations from PCP PROCEDURES: EGD (02/05/2017) Findings: There appeared to be a clean based Linette Murray tear at the GE junction. There was a moderate ring at the GE junction; the ring was not dilated due to pt's resp status. The GE junction was at 37 cm. There was no esophagitis. There was a hiatal hernia. The stomach was normal. There was a patchy erythema in the duodenal bulb. Impression: - Clean based MW tear. Ring. Recommendation: - Discharge patient to floor. - I am not planning on repeating EGD to dilate ring, but may consider as outpt if pt has symptomatic dysphagia and his resp status improves. - Continue BID PPI x 2 weeks, then once daily indeterminately. - OK to resume aspirin. Hold Plavix x 7 days, then ok to resume. Echocardiogram The left ventricle is normal in size. There is moderate concentric left ventricular hypertrophy. The left ventricular wall motion is normal. Ejection Fraction = 65-70%. The left atrium is moderately dilated. The right atrium is moderately dilated. There is moderate to severe mitral regurgitation. There is moderate to severe tricuspid regurgitation. Right ventricular systolic pressure is elevated at 40-50mmHg. Total time spent on discharge = 35 minutes This includes examination of the patient, discharge planning, medication reconciliation, and communication with other providers. Discharge Instructions Discharge Instructions Date of Service Feb 08, 2017. Admission Reason for Admission: CHF Discharge Discharge Diagnosis / Problem: CHF, Upper GI bleed Discharge Goals Goal(s): Decrease discomfort, Improve function Activity Recommendations Activity Limitations: resume your previous activity Exercise/Sports Limitations: as tolerated . Instructions / Follow-Up Instructions / Follow-Up Follow up with Dr. Alcala for primary care on 02/15/17 at 10:50AM Follow up with cardiology on 02/27/17 at 10:30AM Follow up with GI as outpatient for possible colonoscopy per recommendations from PCP START TAKING PLAVIX FROM 02/13/17 (AFTER 5 DAYS) WHICH IS CURRENTLY HELD TAKE PANTOPRAZOLE TWICE A DAY FOR 4 WEEKS AND THEN START TAKING ONCE A DAY Current Hospital Diet Patient's current hospital diet: AHA Diet (Heart Healthy), Low Sodium Diet (2gm Na), Diabetes Type 2 Diet Discharge Diet Recommended Diet: AHA Diet (Heart Healthy), Low Sodium Diet (2gm Na), Diabetes Type 2 Diet Procedures Procedures Performed: EGD Pending Studies Studies pending at discharge: no Laboratory Results Hemoglobin A1c Test 02/01/17 12:35 Range/Units Estimated Average Glucose 137 mg/dl Hemoglobin A1c 6.4 H 4.5-5.6 % Medical Emergencies . Who to Call and When: Medical Emergencies: If at any time you feel your situation is an emergency, please call 911 immediately. . Non-Emergent Contact Non-Emergency issues call your: Primary Care Provider, Advisory Services Associate Call Non-Emergent contact if: you have a fever, your pain is not controlled, your pain is worsening, your pain is unusual for you, you have any medication questions OR if your symptoms including bleeding reoccurs or worsens . . "Provider Documentation" section prepared by Jose Upton. VTE Core Measure Inpt VTE Proph given/why not?: SCD's
== END 2017-02-08 17:40 | DRG 291 ==
LOC: ENRESERVDT → ENRESERVTM → CANRESERV → EDBD 00:18 → C.EDA 00:21 → C.2T 01:40
PROVIDERS: ADMIT Internal Medicine; ATTEND Internal Medicine
PROC: 0DJ08ZZ Inspection of Upper Intestinal Tract, Via Natural or Artificial Opening Endoscopic (ICD-10-PCS; principal; 2017-02-05 12:02)
DX: I13.0 Hypertensive heart and chronic kidney disease with heart failure and stage 1 through stage 4 chronic kidney disease, or unspecified chronic kidney disease (principal); K22.6 Gastro-esophageal laceration-hemorrhage syndrome; J96.01 Acute respiratory failure with hypoxia; I50.33 Acute on chronic diastolic (congestive) heart failure; K50.911 Crohn's disease, unspecified, with rectal bleeding; I25.10 Atherosclerotic heart disease of native coronary artery without angina pectoris; Z86.73 Personal history of transient ischemic attack (TIA), and cerebral infarction without residual deficits; Z95.1 Presence of aortocoronary bypass graft; Z79.82 Long term (current) use of aspirin; Z79.02 Long term (current) use of antithrombotics/antiplatelets; F41.9 Anxiety disorder, unspecified; E78.5 Hyperlipidemia, unspecified; I08.1 Rheumatic disorders of both mitral and tricuspid valves; Z79.899 Other long term (current) drug therapy; Z87.891 Personal history of nicotine dependence; I25.2 Old myocardial infarction; E11.22 Type 2 diabetes mellitus with diabetic chronic kidney disease; I48.2 Chronic atrial fibrillation; K44.9 Diaphragmatic hernia without obstruction or gangrene; R35.0 Frequency of micturition; E11.65 Type 2 diabetes mellitus with hyperglycemia; R35.1 Nocturia; R33.9 Retention of urine, unspecified; N18.2 Chronic kidney disease, stage 2 (mild); R13.10 Dysphagia, unspecified; K64.8 Other hemorrhoids

== ENCOUNTER 2017-12-04 10:02 | Emergency (ER) | payer OTHER ==
[~2017-12-04] VITALS: Ht 165.1 cm; Wt 80.5 kg
[~2017-12-04 10:02] MED LIST changes: -AMLO-114 PO; -ATEN50TA PO; -CITA10TA4 PO; -ENAL10TA PO; +ESCI1TAB6 PO; +FRRS300 PO; +FURO-85 PO; +MECL1TAB42 PO; +NRV5 PO; +PRT40 PO; +SPR25 PO; +TPRSR50 PO
[2017-12-04 10:15] VITALS: TEMP 36.6; Ht 165.1 cm; Wt 80.5 kg
--- NOTE | 2017-12-04 11:13 | EMERGENCY ROOM VISIT NOTE ---
History Report prepared by [place]: Jerson Ramirez Under the Supervision of: Dr. Brandon Oneill M.D. First contact with patient: 10:18 Chief Complaint: FALL Stated Complaint: FALL/LACERATION TO NOSE History of Present Illness The patient is an 82 year old white male with a past medical history of anxiety , CAD, CHF, CVA, diabetes, HTN, HLD, and a CABG who presents to the ED with a cc of a fall that occurred 2 hours ago. Positive nasal and face pain. Negative neck pain, cough, back pain, loss of consciousness, weakness, or numbness. The patient was walking on the sidewalk when he accidentally tripped and fell forward onto his face on the sidewalk. He notes that he has been having some left upper abdominal pain/left lower chest pain for a couple of weeks. He has a follow up appointment with his PCP in a couple of days. This pain is not changed by exertion or breathing. He does not feel diaphoretic, nauseated, or short of breath with the pain. He is on Plavix. Source of History: patient Onset: 2 hours ago Position: other (Global) Symptom Intensity: mild Quality: other (Fall) Timing: resolved Associated Symptoms: + chest pain (Lower left), + abdominal pain (LUQ), No LOC, No neck pain, No back pain, No weakness, No numbness Note: He is having nasal and facial pain. Review of Systems See HPI for pertinent positives and negatives. A total of ten systems were reviewed and were otherwise negative. Past Medical & Surgical Medical Problems: (1) Anxiety (2) CAD (coronary artery disease) (3) Carotid artery stenosis (4) CHF (congestive heart failure) (5) CVA (cerebral vascular accident) (6) Diabetes (7) HTN (hypertension) (8) Hyperlipidemia Surgical Problems: (1) Hx of CABG Social History Problems: (1) Former smoker Family History No significant family history Social History Smoking Status: Former Smoker Alcohol Use: none Drug Use: none Marital Status: Occupation Status: retired Current/Historical Medications Scheduled Amlodipine Besylate (Amlodipine Besylate), 5 MG PO QAM Aspirin (Aspirin), 81 MG PO QAM Atorvastatin (Lipitor), 20 MG PO QAM Clopidogrel (Plavix), 75 MG PO QAM Escitalopram Oxalate (Lexapro), 5 MG PO DAILY Ferrous Sulfate (Ferrous Sulfate), 325 MG PO BID Metoprolol Succinate (Metoprolol Succinate ER), 50 MG PO QAM Nitroglycerin (Nitrostat), 0.4 MG UT PRN Pantoprazole (Pantoprazole Sodium), 40 MG PO BID Scheduled PRN Furosemide (Lasix), 20 MG PO DAILY PRN for WEIGHT GAIN,FLUID ACCUMULATION Allergies Coded Allergies: No Known Allergies (Verified , 12/04/17) Physical Exam Vital Signs Date Time Temp Pulse Resp B/P (MAP) Pulse Ox O2 Delivery O2 Flow Rate FiO2 12/04/17 14:41 71 20 166/81 97 12/04/17 13:13 63 12/04/17 12:09 90 14 170/83 95 12/04/17 11:28 94 Room Air 12/04/17 10:19 72 12/04/17 10:15 36.6 78 20 136/77 98 Room Air Physical Exam GENERAL: Awake, alert, well appearing, no distress HEAD: Normocephalic. No seymour sign. No raccoon eyes. EYES: Normal conjunctiva. PERRL. NOSE: Scant blood in left nares. Hemostatic. No septal hematoma. Abrasion over the nasal bridge. Hemostatic. OROPHARYNX: Lips, tongue, and mucosa unremarkable. No erythema or exudate. NECK: Supple. No tracheal deviation or JVD. No posterior midline tenderness. No step offs noted. RESPIRATORY: CTA bilaterally CARDIAC: Regular rate, irregular rhythm ABDOMEN: Inspection reveals no abnormalities. Soft, non distended. No tenderness to palpation. No hernias. No ecchymosis. BACK: No midline step offs or tenderness to palpation. Unremarkable. PELVIS: Stable to rock. MUSCULOSKELETAL: Upper and lower extremities are atraumatic. No reproducible chest wall pain. No ecchymosis to the chest. NEURO: GCS 15. Normal sensorium. No sensory or motor deficits noted. Medical Decision & Procedures ER Provider Diagnostic Interpretation: Radiology results as stated below per my review and radiologist interpretation: MAXILLOFACIAL CT CT DOSE: HISTORY: Fall. Nasal pain. EVALUATE FOR TRAUMA/INJURY TECHNIQUE: Multiaxial CT images of the maxillofacial region were performed and reformatted in the coronal plane without the use of contrast. A dose lowering technique was utilized adhering to the principles of ALARA. COMPARISON: None. FINDINGS: Probable small nondisplaced nasal bone fracture. Partial opacification of a few the ethmoid air cells. The remaining paranasal sinuses and mastoid air cells are clear. The orbits, and zygomatic arches, skull base, pterygoid plates, mandible, and visualized cervical spine are intact. Mild nasal soft tissue swelling with a small soft tissue laceration. The orbits are unremarkable. IMPRESSION: 1. Probable small nondisplaced nasal bone fracture. 2. Mild soft tissue swelling and a small soft tissue laceration at the nose. 3. No additional fractures identified. Electronically signed by: Thom Smith M.D. 12/04/2017 12:41 PM Dictated Date/Time: 12/04/2017 12:[address]AST CT DOSE: 1120.98 mGy.cm HISTORY: EVALUATE FOR TRAUMA/INJURY TECHNIQUE: Multiaxial CT images of the head were performed without the use of intravenous contrast. Automated exposure control was utilized for this study. A dose lowering technique was utilized adhering to the principles of ALARA. Comparison: None. Findings: A few partially opacified ethmoid air cells. The mastoid air cells are clear. Prior right-sided suboccipital craniectomy. The calvarium is otherwise intact. Focal area of encephalomalacia within the right cerebellar hemisphere likely representing postoperative change. There is no mass, hematoma, midline shift, acute infarct. White matter hypodensity is nonspecific but suggestive of microvascular ischemic change. The ventricles and sulci demonstrate mild age-related involutional changes. Old lacunar infarct seen within the basal ganglia. Impression: No acute intracranial abnormality. Chronic changes as described above. Electronically signed by: Thom Smith M.D. 12/04/2017 12:36 PM Dictated Date/Time: 12/04/2017 12:30 PM CHEST ONE VIEW PORTABLE CLINICAL HISTORY: EVALUATE FOR TRAUMA/INJURY COMPARISON STUDY: 02/04/2017 FINDINGS: Moderate cardiomegaly. Prior median sternotomy. Prominent pulmonary vasculature. Diaphragms smooth. IMPRESSION: Mild congestive heart failure The above report was generated using voice recognition software. It may contain grammatical, syntax or spelling errors. Electronically signed by: Keyshawn Unger M.D. 12/04/2017 11:35 AM Dictated Date/Time: 12/04/2017 11:35 AM CERVICAL SPINE W/O CT DOSE: HISTORY: Trauma. Pain. EVALUATE FOR TRAUMA/INJURY TECHNIQUE: Multiaxial CT images of the cervical spine were performed and reformatted in the sagittal and coronal plane without the use of contrast. A dose lowering technique was utilized adhering to the principles of ALARA. COMPARISON: 06/07/2015 FINDINGS: Moderate degenerative disc changes throughout. Vertebral body stature is normal. No evidence for a compression deformity. C1-C2 complex shows moderate degenerative change. No acute bony abnormality is appreciated. Posterior arch and lateral facets are intact at all levels. Moderate degenerative changes present throughout. IMPRESSION: Degenerative change. No acute bony abnormality. The above report was generated using voice recognition software. It may contain grammatical, syntax or spelling errors. Electronically signed by: Keyshawn Unger M.D. 12/04/2017 12:40 PM Dictated Date/Time: 12/04/2017 12:38 PM Laboratory Results 12/04/17 11:30 Red Blood Count 3.03, Mean Corpuscular Volume 86.5, Mean Corpuscular Hemoglobin 26.7, Mean Corpuscular Hemoglobin Concent 30.9, Mean Platelet Volume 9.1, Neutrophils (%) (Auto) 75.0, Lymphocytes (%) (Auto) 13.7, Monocytes (%) (Auto) 8.3, Eosinophils (%) (Auto) 2.1, Basophils (%) (Auto) 0.5, Neutrophils # (Auto) 6.06, Lymphocytes # (Auto) 1.11, Monocytes # (Auto) 0.67, Eosinophils # (Auto) 0.17, Basophils # (Auto) 0.04 12/04/17 11:30 Test 12/04/17 11:30 White Blood Count 8.08 K/uL (4.8-10.8) Red Blood Count 3.03 M/uL (4.7-6.1) Hemoglobin 8.1 g/dL (14.0-18.0) Hematocrit 26.2 % (42-52) Mean Corpuscular Volume 86.5 fL (80-100) Mean Corpuscular Hemoglobin 26.7 pg (25-34) Mean Corpuscular Hemoglobin Concent 30.9 g/dl (32-36) Platelet Count 168 K/uL (130-400) Mean Platelet Volume 9.1 fL (7.4-10.4) Neutrophils (%) (Auto) 75.0 % Lymphocytes (%) (Auto) 13.7 % Monocytes (%) (Auto) 8.3 % Eosinophils (%) (Auto) 2.1 % Basophils (%) (Auto) 0.5 % Neutrophils # (Auto) 6.06 K/uL (1.4-6.5) Lymphocytes # (Auto) 1.11 K/uL (1.2-3.4) Monocytes # (Auto) 0.67 K/uL (0.11-0.59) Eosinophils # (Auto) 0.17 K/uL (0-0.5) Basophils # (Auto) 0.04 K/uL (0-0.2) RDW Standard Deviation 54.8 fL (36.4-46.3) RDW Coefficient of Variation 17.5 % (11.5-14.5) Immature Granulocyte % (Auto) 0.4 % Immature Granulocyte # (Auto) 0.03 K/uL (0.00-0.02) Acanthocytes 1+ Prothrombin Time 10.2 SECONDS (9.0-12.0) Prothromb Time International Ratio 1.0 (0.9-1.1) Activated Partial Thromboplast Time 23.4 SECONDS (21.0-31.0) Partial Thromboplastin Ratio 0.9 Anion Gap 4.0 mmol/L (3-11) Est Creatinine Clear Calc Drug Dose 38.4 ml/min Estimated GFR () 51.6 Estimated GFR (Non- 44.5 BUN/Creatinine Ratio 18.6 (10-20) Calcium Level 8.5 mg/dl (8.5-10.1) Total Bilirubin 0.4 mg/dl (0.2-1) Direct Bilirubin 0.1 mg/dl (0-0.2) Aspartate Amino Transf (AST/SGOT) 11 U/L (15-37) Alanine Aminotransferase (ALT/SGPT) 19 U/L (12-78) Alkaline Phosphatase 176 U/L (45-117) Troponin I < 0.015 ng/ml (0-0.045) Total Protein 6.4 gm/dl (6.4-8.2) Albumin 3.0 gm/dl (3.4-5.0) Lipase 100 U/L (73-393) Laboratory results reviewed by me Medications Administered Medications (Trade) Dose Ordered Sig/Nathen Route Start Time Stop Time Status Last Admin Dose Admin Furosemide (Lasix Inj) 20 mg ONE ONCE IV 12/04/17 14:30 12/04/17 14:31 DC 12/04/17 14:43 20 MG ECG Indication: other (Trauma) Rate (beats per minute): 75 Rhythm: other (Atrial Fibrillation vs. Sinus Rhythm with sinus arrhythmia) Findings: T-wave inversion (III and aVF), other (Normal intervals, QT appears shorter than machine read) Comparison ECG Date: 02 Jan 2015 Change: no significant change Change: Repeat ECG: Atrial fibrillation 67, normal QRS, normal axis, TWI in lead III, no other STS or TWI, easier to interpret than previous. ED Course 1018: The patient was evaluated in room B6. A complete history and physical exam was performed. 1345: I reevaluated the patient. Discussed results and discharge instructions: He verbalized understanding and agreement. The patient is ready for discharge. Medical Decision The patient is an 82 year old white male with a past medical history of anxiety , CAD, CHF, CVA, diabetes, HTN, HLD, and a CABG who presents to the ED with a cc of a fall that occurred 2 hours ago. Positive nasal and face pain. Negative neck pain, back pain, loss of consciousness, weakness, or numbness. Differential diagnosis: Etiologies such as fracture, dislocation, intra-abdominal, pneumothorax, intrathoracic , intracranial, neurologic, as well as other traumatic pathologies were entertained. Patient was seen and evaluated the bedside. Patient purportedly had a fall earlier today. Patient states he fell forward and struck the ground. Patient does take aspirin and Plavix. Patient did have some mild nasal pain. He did have a small abrasion to the bridge of his nose. Patient denied any headache or neck pain. Patient did describe some chest pains she stated been ongoing for some time. Patient denies any exertional symptoms or shortness of breath. Patient states that he does occasionally use a water pill as needed for lower extremity swelling. On exam he does have trace pretibial edema. Patient did have blood work, EKG, troponin, chest x-ray, and CTs. patient did not have an elevated white blood cell count. Patient does show a anemia. This is slightly less from priors. Patient denies any bright red blood per rectum or melenic stool. Patient denies any hematemesis. Patient's initial EKG was mildly difficult to interpret but then a repeat EKG was obtained which show sthat he was likely in A. fib but was rate controlled. This appears fairly unchanged from priors. Patient does take aspirin and Plavix. Upon review of the electronic medical record the patient had seen cardiology in the past and had agreed not to be anticoagulated with any additional medications at that time. Patient CTs were negative for any acute changes that would require any medical or surgical treatment. Of note the patient did have a likely nondisplaced is a bone fracture. Patient did have mild IVAN as his creatinine is higher from priors; however the patient was making good urine as seen in bedside urinal and was able to give a urine sample. Patient was able to tolerate by mouth fluids. Patient was given a small dose of Lasix IV as the patient does take this at home when needed and the patient's chest x-ray did show some pulmonary vascular congestion. As the patient was not complaining of any exertional chest pains, exertional dyspnea, or orthopnea, I believe this is stable CHF as the patient is otherwise asymptomatic and w/o vital signs concerning for inpatient trx. I believe this is more of an incidental finding based on the patient's initial presentation after a fall. I did discuss results with the patient. Patient does have a son that does live close by and is sees with great frequency. Thus, I believe he suitable for outpatient follow-up and treatment. Patient was told he will need to follow-up with his primary care physician. He did say he has a f /u appt. Patient again was very well-appearing otherwise asymptomatic at this time. Patient was given strict follow-up, discharge, and return precautions. All questions were answered. Patient was deemed suitable for outpatient follow- up at this time. Patient agreed with the plan of care and was safely discharged home. Medication Reconcilliation Current Medication List: was personally reviewed by me Blood Pressure Screening Patient's blood pressure: Normal blood pressure Blood pressure disposition: Did not require urgent referral Impression Primary Impression: Fall Additional Impressions: Anemia CHF (congestive heart failure) A-fib Nasal bone fx-closed Scribe Attestation The scribe's documentation has been prepared under my direction and personally reviewed by me in its entirety. I confirm that the note above accurately reflects all work, treatment, procedures, and medical decision making performed by me. Departure Information Dispostion Home / Self-Care Referrals Karson Alcala M.D. (PCP) Forms HOME CARE DOCUMENTATION FORM, IMPORTANT VISIT INFORMATION Patient Instructions Chest Pain - [facility], ED Mechanical Fall, My Wellington Castaneda [facility] Additional Instructions Please return to the emergency department if you have worsening or recurrent symptoms not amenable to at-home treatment. Please call for a follow-up appointment with her primary care physician. Please take your medications as prescribed. If you have other concerns and/or complaints please feel free to also call your primary care physician's office or return the ED for further evaluation, management, and treatment. You may take tylenol 650 mg every 6 hours as needed for pain. You may take motrin and tylenol separately or at the same time. Take your medications as prescribed. You have been examined and treated today on an emergency basis only. This is not a substitute for, or an effort to provide, complete comprehensive medical care. It is impossible to recognize and treat all injuries or illnesses in a single emergency department visit. It is therefore important that you follow up closely with [facility], your PCP, and/or your specialist(s). Call as soon as possible for an appointment. Thank you for your time and consideration. I look forward to speaking with you again soon. Please don't hesitate to call us if you have any questions. Problem Qualifiers Primary Impression: Fall Encounter type: initial encounter Qualified Codes: W19.XXXA - Unspecified fall, initial encounter Additional Impressions: Anemia Anemia type: unspecified type Qualified Codes: D64.9 - Anemia, unspecified CHF (congestive heart failure) Congestive heart failure type: unspecified Congestive heart failure chronicity: unspecified Qualified Codes: I50.9 - Heart failure, unspecified A-fib Atrial fibrillation type: chronic Qualified Codes: I48.2 - Chronic atrial fibrillation Nasal bone fx-closed Encounter type: initial encounter Qualified Codes: S02.2XXA - Fracture of nasal bones, initial encounter for closed fracture
[2017-12-04 11:28] VITALS: O2SAT 94
--- NOTE | 2017-12-04 11:37 | DIAGNOSTIC IMAGING REPORT ---
CHEST ONE VIEW PORTABLE CLINICAL HISTORY: EVALUATE FOR TRAUMA/INJURY COMPARISON STUDY: 02/04/2017 FINDINGS: Moderate cardiomegaly. Prior median sternotomy. Prominent pulmonary vasculature. Diaphragms smooth. IMPRESSION: Mild congestive heart failure The above report was generated using voice recognition software. It may contain grammatical, syntax or spelling errors. Electronically signed by: Keyshawn Unger M.D. 12/04/2017 11:35 AM Dictated Date/Time: 12/04/2017 11:35 AM
[2017-12-04 12:15] LABS: BASO % 0.5 %; BASO ABS # 0.04 K/uL (0-0.2); EOS % 2.1 %; EOS ABS # 0.17 K/uL (0-0.5); HEMATOCRIT 26.2 % (42-52); HEMOGLOBIN 8.1 g/dL (14.0-18.0); IG# 0.03 K/uL (0.00-0.02); LYMPH % 13.7 %; LYMPH ABS # 1.11 K/uL (1.2-3.4); MEAN CELL VOLUME 86.5 fL (80-100); MEAN CORPUSCULAR HEMOGLOBIN 26.7 pg (25-34); MEAN CORPUSCULAR HGB CONC 30.9 g/dl (32-36); MEAN PLATELET VOLUME 9.1 fL (7.4-10.4); MONO % 8.3 %; MONO ABS # 0.67 K/uL (0.11-0.59); NEUT ABS # 6.06 K/uL (1.4-6.5); PLATELET COUNT 168 K/uL (130-400); RED CELL DISTRIBUTION WIDTH CV 17.5 % (11.5-14.5); RED CELL DISTRIBUTION WIDTH SD 54.8 fL (36.4-46.3); WHITE BLOOD COUNT 8.08 K/uL (4.8-10.8)
[2017-12-04 12:33] LABS: PTT PATIENT 23.4 SECONDS (21.0-31.0)
[2017-12-04 12:34] LABS: ALT/SGPT 19 U/L (12-78); AST/SGOT 11 U/L (15-37); BLOOD UREA NITROGEN 27 mg/dl (7-18); CALCIUM 8.5 mg/dl (8.5-10.1); CARBON DIOXIDE 28 mmol/L (21-32); CREATININE 1.45 mg/dl (0.60-1.40); GLUCOSE 135 mg/dl (70-99); LIPASE 100 U/L (73-393); POTASSIUM 4.2 mmol/L (3.5-5.1); SODIUM 144 mmol/L (136-145)
--- NOTE | 2017-12-04 12:37 | DIAGNOSTIC IMAGING REPORT ---
HEAD CT NONCONTRAST CT DOSE: 1120.98 mGy.cm HISTORY: EVALUATE FOR TRAUMA/INJURY TECHNIQUE: Multiaxial CT images of the head were performed without the use of intravenous contrast. Automated exposure control was utilized for this study. A dose lowering technique was utilized adhering to the principles of ALARA. Comparison: None. Findings: A few partially opacified ethmoid air cells. The mastoid air cells are clear. Prior right-sided suboccipital craniectomy. The calvarium is otherwise intact. Focal area of encephalomalacia within the right cerebellar hemisphere likely representing postoperative change. There is no mass, hematoma, midline shift, acute infarct. White matter hypodensity is nonspecific but suggestive of microvascular ischemic change. The ventricles and sulci demonstrate mild age-related involutional changes. Old lacunar infarct seen within the basal ganglia. Impression: No acute intracranial abnormality. Chronic changes as described above. Electronically signed by: Thom Smith M.D. 12/04/2017 12:36 PM Dictated Date/Time: 12/04/2017 12:30 PM
[2017-12-04 12:39] LABS: ALKALINE PHOSPHATASE 176 U/L (45-117); TOTAL PROTEIN 6.4 gm/dl (6.4-8.2)
--- NOTE | 2017-12-04 12:41 | DIAGNOSTIC IMAGING REPORT ---
CERVICAL SPINE W/O CT DOSE: HISTORY: Trauma. Pain. EVALUATE FOR TRAUMA/INJURY TECHNIQUE: Multiaxial CT images of the cervical spine were performed and reformatted in the sagittal and coronal plane without the use of contrast. A dose lowering technique was utilized adhering to the principles of ALARA. COMPARISON: 06/07/2015 FINDINGS: Moderate degenerative disc changes throughout. Vertebral body stature is normal. No evidence for a compression deformity. C1-C2 complex shows moderate degenerative change. No acute bony abnormality is appreciated. Posterior arch and lateral facets are intact at all levels. Moderate degenerative changes present throughout. IMPRESSION: Degenerative change. No acute bony abnormality. The above report was generated using voice recognition software. It may contain grammatical, syntax or spelling errors. Electronically signed by: Keyshawn Unger M.D. 12/04/2017 12:40 PM Dictated Date/Time: 12/04/2017 12:38 PM
--- NOTE | 2017-12-04 12:42 | DIAGNOSTIC IMAGING REPORT ---
MAXILLOFACIAL CT CT DOSE: HISTORY: Fall. Nasal pain. EVALUATE FOR TRAUMA/INJURY TECHNIQUE: Multiaxial CT images of the maxillofacial region were performed and reformatted in the coronal plane without the use of contrast. A dose lowering technique was utilized adhering to the principles of ALARA. COMPARISON: None. FINDINGS: Probable small nondisplaced nasal bone fracture. Partial opacification of a few the ethmoid air cells. The remaining paranasal sinuses and mastoid air cells are clear. The orbits, and zygomatic arches, skull base, pterygoid plates, mandible, and visualized cervical spine are intact. Mild nasal soft tissue swelling with a small soft tissue laceration. The orbits are unremarkable. IMPRESSION: 1. Probable small nondisplaced nasal bone fracture. 2. Mild soft tissue swelling and a small soft tissue laceration at the nose. 3. No additional fractures identified. Electronically signed by: Thom Smith M.D. 12/04/2017 12:41 PM Dictated Date/Time: 12/04/2017 12:36 PM
[2017-12-04] MEDS ORDERED: FUROSEMIDE INJ 20 MG in SYRINGE 0 ML IV ONE (12:45)
[2017-12-04] MEDS ORDERED: FUROSEMIDE 40 MG/4 ML VIAL IV ONE (14:30)
[2017-12-04 16:07] VITALS: BP 163/66; PULSE 78; O2SAT 97
== END 2017-12-04 16:13 | disposition home or self-care (01) ==
LOC: EDBD 10:02 → C.EDB 10:03
DX: S02.2XXA Fracture of nasal bones, initial encounter for closed fracture (principal); W19.XXXA Unspecified fall, initial encounter; D64.9 Anemia, unspecified; I48.91 Unspecified atrial fibrillation; I50.9 Heart failure, unspecified; I10 Essential (primary) hypertension; E78.5 Hyperlipidemia, unspecified; E11.9 Type 2 diabetes mellitus without complications; I25.10 Atherosclerotic heart disease of native coronary artery without angina pectoris; F41.9 Anxiety disorder, unspecified; Z86.73 Personal history of transient ischemic attack (TIA), and cerebral infarction without residual deficits; Z95.1 Presence of aortocoronary bypass graft; Z87.891 Personal history of nicotine dependence; Z79.82 Long term (current) use of aspirin; Z79.899 Other long term (current) drug therapy

== ENCOUNTER 2019-09-22 12:33 | Inpatient (IN) ==
--- OUTSIDE RECORDS SUMMARY | 2019-09-22 12:36 | External Medical Summary | Continuity of Care Document ---
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 , M.DHebert Start: 16-Apr-2015 Quantity: 90 Refills: 3 Enalapril Maleate 10 MG Oral Tablet; TAKE 4 TABLET DAILY. M.DHebert Start: 16-Apr-2015 Refills: 0 Clopidogrel Bisulfate 75 MG Oral Tablet; TAKE 1 TABLET DAILY . , M.DHebert Start: 16-Apr-2015 Refills: 0 amLODIPine Besylate 5 MG Oral Tablet; TAKE 2 TABLETS DAILY. , M.DHebert Start: 16-Apr-2015 Refills: 0 Atenolol 50 MG Oral Tablet; TAKE 1 TABLET DAILY. Mike.DHebert Start: 16-Apr-2015 Refills: 0 Atorvastatin Calcium 20 MG Oral Tablet; TAKE 1 TABLET DAILY. , M.DHebert Start: 16-Apr-2015 Refills: 0 Citalopram Hydrobromide 10 MG Oral Tablet; TAKE 1 TABLET ROXANNE SCHEERR M.D. Start: 16-Apr-2015 Refills: 0 Nitrostat 0.4 MG Sublingual Tablet Subli ngual; PLACE 1 TABLET UNDER THE TONGUE EVERY 5 MINUTES FOR UP TO 3 DOSES NEEDED FOR CHEST PAIN.CALL 911 IF PAIN PERSISTS. Luis Eduardo Start: 16-Apr-2015 Refills: 0 Aspirin 81 MG TABS; TAKE 1 TABLET DAILY. Luis Eduardo Start: 16-Apr-2015 Refills: 0 Procedures History of Surgery For Abdominal Aortic Aneurysm Status: Completed History of CABG Status: Completed History of Appendectomy Status: Complete d History of Carotid Thromboendarterectomy Status: Completed Immunizations Immunizations not documented Family History Mother Family history of malignant neoplasm (V16.9) (Z80.9) Status: Active Social History - Smoking Status Former smoker Plan of Treatment Planned Observations Planned Goals not documented Results No Known Results Results not documented
[2019-09-22] MEDS ORDERED: SODIUM CHLORIDE 0.9% 500 ML IV ONE (13:45)
[2019-09-22 14:04] LABS: Basophils # (auto) 0.04 K/uL (0-0.2); Basophils % (auto) 0.4 %; Eosinophils # (auto) 0.02 K/uL (0-0.5); Eosinophils % (auto) 0.2 %; Hematocrit (blood only) 40.2 % (42-52); Hemoglobin 13.1 g/dL (14.0-18.0); Immature Granulocytes # (auto) 0.03 K/uL (0.00-0.02); Immature Granulocytes % (auto) 0.3 %; Lymphocytes # (auto) 0.96 K/uL (1.2-3.4); Mean Corpuscular Hemoglobin 27.8 pg (25-34); Mean Corpuscular Hgb Conc 32.6 g/dL (32-36); Mean Corpuscular Volume 85.4 fL (80-100); Mean Platelet Volume 9.6 fL (7.4-10.4); Monocytes # (auto) 0.76 K/uL (0.11-0.59); Monocytes % (auto) 7.1 %; Neutrophils # (auto) 8.87 K/uL (1.4-6.5); Platelet Count 168 K/uL (130-400); RDW Coefficient of Variation 15.9 % (11.5-14.5); RDW Standard Deviation 49.4 fL (36.4-46.3); Red Blood Count 4.71 M/uL (4.7-6.1); White Blood Count 10.68 K/uL (4.8-10.8)
[2019-09-22 14:17] LABS: INR 1.1 (0.9-1.1); Prothrombin Time 11.3 Seconds (9.0-12.0)
[2019-09-22 14:23] LABS: Alanine Aminotransferase 22 U/L (12-78); Albumin Level 3.9 gm/dl (3.4-5.0); Aspartate Aminotransferase 25 U/L (15-37); BUN Creatinine Ratio 20.7 (10-20); Blood Urea Nitrogen 25 mg/dl (7-18); Calcium 9.5 mg/dl (8.5-10.1); Carbon Dioxide 25 mmol/L (21-32); Chloride 107 mmol/L (98-107); Est GFR (African American) 63.3; Est GFR (Non-African American) 54.6; Glucose 120 mg/dl (70-99); Lipase 47 U/L (73-393); Magnesium 2.2 mg/dl (1.8-2.4); Potassium 4.1 mmol/L (3.5-5.1); Sodium 142 mmol/L (136-145)
[2019-09-22 14:31] LABS: Alkaline Phosphatase 190 U/L (45-117); Creatine Kinase 623 U/L (39-308); Globulin 4.1 gm/dl (2.5-4.0); Phosphorus 3.2 mg/dl (2.5-4.9); Thyroid Stimulating Hormone 0.569 uIu/ml (0.300-4.500); Troponin I 0.034 ng/ml (0-0.045)
--- NOTE | 2019-09-22 14:46 | CT Scan Report ---
CT cervical spine wo con CT DOSE: HISTORY: Trauma. Pain. pain fall TECHNIQUE: Multiaxial CT images of the cervical spine were performed and reformatted in the sagittal and coronal plane without the use of contrast. A dose lowering technique was utilized adhering to th e principles of ALARA. COMPARISON: 12/04/2017 FINDINGS: No fractures. No subluxation. Prevertebral soft tissues and the C1-C2 interval are intact. No pneumothorax. Generalized degenerative change similar compared to the prior study. IMPRESSION: No fractures within the cervical spine. Generalized degenerative change The above report was generated using voice recognition software. It may contain grammatical, syntax or spelling errors. Electronically signed by: Keyshawn Unger M.D. 09/22/2019 2:45 PM
[2019-09-22 14:49] LABS: Appearance Urine Clear (Clear); Bilirubin Urine Negative (Negative); Blood Urine 2+ (Negative); Color Urine Yellow; Epithelial Cell Urine Auto 20-30 /lpf (0-5); Glucose Urine UA Negative (Negative); Ketones Urine Trace (Negative); Leukocyte Esterase Urine Negative (Negative); Nitrite Urine Negative (Negative); Protein Urine 3+ (Negative); RBC Urine Automated 0-4 /hpf (0-4); Specific Gravity Urine 1.025 (1.000-1.030); Urobilinogen Urine Negative (Negative)
--- NOTE | 2019-09-22 15:01 | CT Scan Report ---
HEAD CT NONCONTRAST CT DOSE: 924.39 mGy.cm HISTORY: Fall. Head and neck pain. TECHNIQUE: Multiaxial CT images of the head were performed without the use of intravenous contrast. A utomated exposure control was utilized for this study. A dose lowering technique was utilized adheri ng to the principles of ALARA. Comparison: Head CT 12/04/2017. Findings: The paranasal sinuses and mastoid air cells are clear. Prior right suboccipital craniectomy . No calvarial fractures identified. Atrophy and microvascular ischemic changes are again noted. Ence phalomalacia within the right cerebellar hemisphere is also unchanged consistent with postoperative c hange. There is no mass, hematoma, midline shift, acute infarct. Old bilateral basal ganglia lacunar infarcts are again noted. Impression: No significant change compared to the prior study. No acute intracranial abnormality. Electronically signed by: Thom Smith M.D. 09/22/2019 3:00 PM
[2019-09-22 15:02] LABS: Bacteria Urine Automated 1+ (Negative)
--- NOTE | 2019-09-22 15:22 | XRay Report ---
RIGHT ELBOW 3 VIEWS HISTORY: Right elbow pain fall COMPARISON: None. FINDINGS: There is no fracture or dislocation. Soft tissues are unremarkable. No radiopaque foreign b odies. Evaluation for an elbow effusion is essentially nondiagnostic given the positioning. No large effusion identified. Vascular calcifications are noted. IMPRESSION: Suboptimal positioning. No definite fractures. Electronically signed by: Thom Smith M.D. 09/22/2019 3:20 PM
--- NOTE | 2019-09-22 15:22 | XRay Report ---
XR lumbar spine 2-3V CLINICAL HISTORY: pain fall trauma. Pain. COMPARISON STUDY: No previous studies for comparison. FINDINGS: Generalized degenerative disc changes throughout. Vertebral body stature is normal. No evid ence for compression deformity. Bilateral nephrocalcinosis. Possible aneurysm abdominal aorta with ultrasound of the abdominal aorta recommended as follow-up. IMPRESSION: 1. Mild degenerative changes of the lumbar spine. 2. No acute process. 3. Bilateral nephrocalcinosis. 4. Potential aneurysm abdominal aorta with ultrasonic evaluation of the abdominal aorta recommended. The above report was generated using voice recognition software. It may contain grammatical, syntax or spelling errors. Electronically signed by: Keyshawn Unger M.D. 09/22/2019 3:20 PM
--- NOTE | 2019-09-22 15:23 | XRay Report ---
XR thoracic spine 3V routine HISTORY: Trauma. Pain. pain fall COMPARISON: None. FINDINGS: There is no fracture. No subluxation. Moderate degenerative disc changes throughout. Osteo penia. Moderate anterior osteophyte formation. Left and to a lesser extent right basilar parenchymal infiltrative change. IMPRESSION: 1. No acute process of the thoracic spine. 2. Moderate degenerative change. 3. Moderate left and to a lesser extent right basilar parenchymal infiltrate. The above report was generated using voice recognition software. It may contain grammatical, syntax or spelling errors. Electronically signed by: Keyshawn Unger M.D. 09/22/2019 3:21 PM
--- NOTE | 2019-09-22 15:24 | XRay Report ---
RIGHT HAND 3 VIEWS HISTORY: Right hand pain fall COMPARISON: None. FINDINGS: There is no fracture or dislocation. Soft tissues are unremarkable. No radiopaque foreign b odies. The bones are osteopenic. Vascular calcifications are noted. 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 IMPRESSION: No fracture or dislocation within the right hand. Electronically signed by: Thom Smith M.D. 09/22/2019 3:22 PM
--- NOTE | 2019-09-22 15:26 | XRay Report ---
XR chest 1V not portable HISTORY: Fall. Right-sided Chest Pain COMPARISON: Chest 12/04/2017. FINDINGS: The heart remains mildly enlarged. There are poststernotomy changes. No pleural effusions. No pneumothorax. Calcified granuloma within the left lower lung zone. Mild diffuse interstitial thick ening which remains unchanged. This may be chronic. Mildly displaced right lateral seventh and eighth rib fractures. IMPRESSION: Mildly displaced right lateral seventh and eighth rib fractures. No pneumothorax. Electronically signed by: Thom Smith M.D. 09/22/2019 3:25 PM
[2019-09-22] MEDS ORDERED: AMLODIPINE BESYLATE 5 MG TAB PO ONE (17:37)
[2019-09-22] MEDS ORDERED: METOPROLOL SUCC 50MG EXT REL TAB PO STA (17:37)
--- NOTE | 2019-09-22 18:17 | History & Physical Report ---
Date of Service September 22, 2019 Assessment & Plan (1) Weakness: (2) Encephalopathy: (3) Rhabdomyolysis: This is an 84-year-old male who has significant past medical history of CAD with history of CABG x3 in 1990, chronic A. fib not on oral anticoagulation, chronic diastolic CHF, T2DM, history of CVA, history of ICH in 1998, depression with anxiety, history of nephrolithiasis who presents to [facility] ED after being found lying on floor at apartment complex at [facility]. IN ED pt was hypertensive, but otherwise hemodynamically stable H&H stable at 13.1 and 40.2 BUN/creatinine 25 and 1.21, CK elevated 623, troponin detectable at 0.034 Urinalysis with protein, ketones and micro scopic hematuria but no evidence of infection T-spine x-ray concerning for bibasilar opacities CT head revealed microvascular small vessel ischemic change, old basal ganglia infarct and lacunar infarct no acute abnormality In ED received IVF Ddx but not limited to: Rhabdomyolysis, bacteremia, pneumonia, drug reaction, misuse of medications, influenza, dementia with delirium Admit to PCU continue IVF at 75cc/hr monitor volume status with hx of CHF check blood cultures, drug tox screen, influenza screen, sputum culture if able Hold diuretic and statin repeat trop at 8 PT/OT consider ST consult protein/cr ration (4) PNA (pneumonia): T-spine x-ray mentions questionable bibasilar opacity Patient afebrile and WBC 10.68 Complain of cough but no hypoxia Given the fact patient was found down and he is at risk for aspiration will treat empirically with IV antibiotics until infection ruled Placed on IV Unasyn (5) Rib fracture: CXR confirms R 7th and 8th lateral rib fx tx conservatively with pain management, incentive spirometry (6) Chronic atrial fibrillation: Rate controlled on metoprolol Not candidate for oral anti-coagulation secondary to fall risk Follow with [facility] cardiology (7) CHF (congestive heart failure): No signs or symptoms of volume overload Hold Lasix secondary to dehydration elevated CK Monitor daily weight Monitor volume status (8) Microscopic hematuria: recommend repeat UA - if persistent refer to urology on outpt basis (9) CAD (coronary artery disease): no cp or Sob Trop 0.034 repeat troponin at 8pm continue asa, plavix, BB hold statin (10) CVA (cerebral vascular accident): hx of CVA; hx of ICH in 1998 no residual deficits on ASA, plavix hold statin for now (11) Diabetes: Last A1C 6.6 A1C in a.m. carb consistent diet if A1C elevated - consider adding novolog per protocol (12) HTN (hypertension): Blood pressure elevated in ED Question of secondary to pain versus noncompliance with medication Patient states he did not take any medications today, although history unreliable Dose of amlodipine 5 mg x 1 now & Toprol 50 mg x 1 now monitor and tx accordingly hold lasix due to mild elevated BUN/and CK (13) Hyperlipidemia: Hold statin in light of elevated CK (14) DVT prophylaxis: SCD/TEDS Pt on ASA, Plavix pt with freq falls - will hold on further chemical prophylaxis for now - but monitor need on daily basis Disposition: admit to PCU, consult case management Follow up: PCP Dr. Alcala upon discharge, [facility] patient Pt was seen and examined in collaboration with Dr. Ching, please see addendum History of Present Illness Chief Complaint: Found down on floor at apartment complex at [facility]. Primary Care Provider: Dr. Alcala This is an 84-year-old male who has significant past medical history of CAD with history of CABG x3 in 1990, chronic A. fib not on oral anticoagulation, chronic diastolic CHF, T2DM, history of CVA, history of ICH in 1998, depression with anxiety, history of nephrolithiasis who presents to [facility] ED after being found lying on floor at apartment complex at [facility]. ROS unreliable from patient. Toxfmwuo-yf-uty at bedside. She last saw patient while approximately 2 months ago and has not talked to them since secondary to, "him being stubborn." He lives alone in independent living apartment complex. Apparently found lying on floor with pillow by maintenance associate. He was incontinent of urine. [place] patient was more confused than baseline. Fynoeapz-mg-ujt reports she has heard over the past several months he has continually declined to become more confused. It is unknown if patient actually fell. He currently denies any acute pain, except when taking deep breath on the right side. There is question to whether or not patient has been adequately caring for himself or taking any of his medications. He denies any f/c/s, chest pain, sob, n/v/d, change in bowel or urinary habits. +Intermittent dry cough and poor sleep. Is upset he does not want to stay in hospital. Records reviewed from [facility]. He is a [facility] patient and was last seen on 09/19 he was sitting up in chair. Apparently has recently been feeling down and depressed and his antidepressant was increased. He received flu shot. It was reported recent increase falls. His medications, and pill pack per [facility] documentation appears to have been taking medications. Allergies Allergy/AdvReac Type Severity Reaction Status Date / Time No Known Allergies Allergy Verified 09/22/19 14:33 Home Medications Home Medications Medication Instructions Recorded Confirmed Type amlodipine 5 mg PO DAILY 09/22/19 09/22/19 History aspirin 81 mg PO DAILY 09/22/19 09/22/19 History atorvastatin 20 mg PO DAILY 09/22/19 09/22/19 History clopidogrel 75 mg PO DAILY 09/22/19 09/22/19 History escitalopram oxalate 20 mg PO DAILY 09/22/19 09/22/19 History ferrous sulfate 325 mg PO BID 09/22/19 09/22/19 History furosemide 20 mg PO DAILY 09/22/19 09/22/19 History metoprolol succinate 50 mg PO DAILY 09/22/19 09/22/19 History pantoprazole 40 mg PO BID 09/22/19 09/22/19 History Past Med/Surg History Medical History CKD (chronic kidney disease) stage 3, GFR 30-59 ml/min (Chronic) Anemia (Chronic) Chronic atrial fibrillation (Chronic) not OAC candidate History of abdominal aortic aneurysm (AAA) (Chronic) History of nephrolithiasis (Chronic) HTN (hypertension) (Chronic) Diabetes (Chronic) Hyperlipidemia (Chronic) CAD (coronary artery disease) (Chronic) hx of CABG x 3 in 1998 CVA (cerebral vascular accident) (Resolved) hx of ICH in 1998 hx of ischemic CVA Anxiety (Chronic) Carotid artery stenosis (Chronic) R CEA in 2001; L CEA in 06/2015 Former smoker (Resolved) CHF (congestive heart failure) (Chronic) NSTEMI (non-ST elevation myocardial infarction) (Acute) Surgical History History of appendectomy (Chronic) History of esophagogastroduodenoscopy (EGD) (Chronic) MW Tear 01/2017 History of AAA (abdominal aortic aneurysm) repair (Chronic) History of CEA (carotid endarterectomy) (Chronic) R CEA in 2001; L CEA in 06/2015 Hx of CABG (Resolved) Family History Other Coronary heart disease Social History Preferred Language: Turkish Communication Ability: Impaired Field Service Consultant Required: No Beliefs That Will Affect Care: None marital status: / Current Living Situation: Other Current Living Situation Comment: Independent living apt. current occupational status: retired Other Information That Helps Us Care for You: No Feels Safe at Home: Yes Safety Concerns: Feels Safe At This Time Smoking Status: Former smoker Tobacco Type: cigarettes ; Cigarettes Per Day: 2- 3 cans/wk ; Hx Alcohol Use: No Hx Substance Use: No Review of Systems Review of Systems: All systems reviewed & are unremarkable except as noted in HPI & below Physical Exam Physical Exam: Constitutional: Elderly, male, unkempt, Thin, vitals as above, NAD, sitting up in bed, answering questions approp Head: Normocephalic, Atraumatic Eyes: PERRL, conjunctivae normal, anicteric sclerae ENMT: external ear and nose normal, oropharynx dry Neck: trachea midline, no thyromegaly normal visual inspection Respiratory: normal respiratory effort, lungs clear to auscultation, no wheeze, rales, rhonchi. Normal insp/exp effort, no accessory muscle use Cardiovascular: IRR/IRR, no murmur, no edema Vessels: no JVD or carotid bruit Chest: normal inspection of chest , pain to palp R chest wall Abdomen: normal bowel sounds, soft, nontender, no hepatosplenomegaly Musculoskeletal: no cyanosis or clubbing, extremities motor strength 5/5 Skin: numerous areas of ecchymosis, warm and dry normal turgor Neurologic: PERRL, EOMI, accommodation nl, no face palsy, no dysarthria CN's II-XI intact bilaterally and moves all extremities Psychiatric: A+O to self and family member only, euthymic affect Lymphatic: no cervical or axillary lymphadenopathy : deferred Results & Data Vital Signs (Past 12 Hours) Vital Signs Temp Pulse Pulse Resp BP BP BP 09/22/19 16:31 90 18 175/86 H 09/22/19 16:05 80 23 193/89 H 09/22/19 15:19 81 22 178/131 H 09/22/19 13:53 82 20 178/86 H 09/22/19 12:33 37.0 C 78 24 160/77 H Pulse Ox 09/22/19 16:31 97 09/22/19 16:05 96 09/22/19 15:19 96 09/22/19 13:53 99 09/22/19 12:33 98 Laboratory Results Short CBC 09/22/19 Range/Units 13:48 WBC 10.68 (4.8-10.8) K/uL Hgb 13.1 L (14.0-18.0) g/dL Hct 40.2 L (42-52) % Plt Count 168 (130-400) K/uL BMP 09/22/19 13:48 Sodium 142 Potassium 4.1 Chloride 107 Carbon Dioxide 25 BUN 25 H Creatinine 1.21 Glucose 120 H Calcium 9.5 Cardiac Enzymes 09/22/19 Range/Units 13:48 Total Creatine Kinase 623 H (39-308) U/L Troponin I 0.034 (0-0.045) ng/ml Liver Function 09/22/19 Range/Units 13:48 Total Bilirubin 1.0 (0.2-1) mg/dl AST 25 (15-37) U/L ALT 22 (12-78) U/L Alkaline Phosphatase 190 H (45-117) U/L Albumin 3.9 (3.4-5.0) gm/dl Urine 09/22/19 Range/Units 14:08 Urine Color Yellow Urine Appearance Clear (Clear) Urine pH 5.0 (4.5-7.5) Ur Specific [place] 1.025 (1.000-1.030) Urine Protein 3+ H (Negative) Urine Glucose (UA) Negative (Negative) Diagnostic Findings Head CT: Impression: No significant change compared to the prior study. No acute intracranial abnormality. C Spine CT: IMPRESSION: No fractures within the cervical spine. Generalized degenerative change CXR: IMPRESSION: Mildly displaced right lateral seventh and eighth rib fractures. No pneumothorax. T spine Xray: IMPRESSION: 1. No acute process of the thoracic spine. 2. Moderate degenerative change. 3. Moderate left and to a lesser extent right basilar parenchymal infiltrate. Lumbar Spine Xray: IMPRESSION: 1. Mild degenerative changes of the lumbar spine. 2. No acute process. 3. Bilateral nephrocalcinosis. 4. Potential aneurysm abdominal aorta with ultrasonic evaluation of the abdominal aorta recommended Hand Xray: IMPRESSION: No fracture or dislocation within the right hand. Code Status & VTE Plan Code Status Full Code No advance directive or living will on file VTE Prophylaxis Plan VTE Prophylaxis will be ordered: Yes Supervising Physician Co-Signing Physician Notes I have seen and examined the patient and have discussed the case with the provider above. I agree with the assessment and plan as stated with the following exceptions. The patient is an 84 yo M who was found lying on his floor by a maintenance scheduler. Per the ER provider, he reported a fall and imaging studies in the ER reveal a right lateral 7th and 8th rib fracture. The patient is confused on my evaluation, unable to orient to place or time and doesn't know why he is here. Although he denies any pain his BP is elevated and he is acutely confused. Uncontrolled pain is in the differential. Workup also revealed a possible pneumonia and labwork reflected an elevated creatinine. There is no evidence of acute kidney injury. Physical exam reveals a calm patient in no acute distress who can move arms and legs equally and can follow instructions. He is disoriented, and some answers to questions are hard to understand. Lungs are clear to auscultation, he appears to guard right chest wall when palpated, heart exam reveals normal S1/2 without evidence of murmurs, gallops or rubs. He has no peripheral edema present and is euvolemic. Although he had a mildly elevated troponin, that is likely 2/2 the elevated CK from nontraumatic skeletal muscle breakdown after a prolonged period of time on the floor. Agree with IV hydration overnight. Will empirically treat for pneumonia as patient is unable to give a clear history. Blood and urine cultures are pending. The patient is not septic. CT head reveals no acute intracranial abnormality, and clinically he doesn't appear to have had a stroke. Plan to add Lidoderm patch and scheduled Tylenol to get the pain under control. Will give one dose of hydralazine now as BP 180/97. Cont Unasyn and monitor for clinical response in am. I have discussed the plan with his son, David, who is going to have him coming to live with he and his after this admission. He understands the plan and all questions were answered. DO Humza
[2019-09-22] MEDS ORDERED: ONDANSETRON INJ 2 MG/ML 2 ML VIAL IV PRN (19:44)
[2019-09-22] MEDS ORDERED: MAGNESIUM HYDROXIDE SUSP 30 ML UDC PO PRN (19:44)
[2019-09-22] MEDS ORDERED: POLYETHYLENE (MIRALAX) 17 GM PACK PO PRN (19:44)
[2019-09-22] MEDS ORDERED: ACETAMINOPHEN 325 MG TAB PO PRN (19:44)
[2019-09-22] MEDS ORDERED: ALUMINUM/MAGNESIUM SUSP 30 ML UDC PO PRN (19:44)
[2019-09-22] MEDS ORDERED: HydrALAZINE HCL 20 MG/ML VIAL IV STA (20:35)
[2019-09-22] MEDS: AMPICILLIN/SULBACTAM SOD 3,000 MG in 0.9 % SODIUM CHLORIDE 100 ML IV SCH ×2 (20:54→23:01)
[2019-09-22] MEDS: PANTOprazole 40 MG TAB PO SCH (20:55)
[2019-09-22] MEDS: FERROUS SULFATE 325 MG TAB PO SCH (20:55)
[2019-09-22] MEDS: SODIUM CHLORIDE 0.9% 1000ML 1,000 ML IV SCH (20:59)
[2019-09-22] MEDS ORDERED: PNEUMOCOCCAL POLYSACCHARIDES 25 MCG/0.5 ML VIAL/SYR IM ONE (21:15)
[2019-09-22] MEDS ORDERED: PNEUMOCOCCAL ADMINISTRATION CHARGE ONE (21:15)
--- NOTE | 2019-09-22 21:33 | Emergency Department Note ---
Entered by Bibiana Bowers acting as a scribe for History of Present Illness General Chief complaint: Fall Time Seen by Provider: 09/22/19 13:25 Source: patient History of Present Illness Onset (ago): day(s) (last night) Location: upper extremity (right) Pain Consistency: + other (episode) Maximum Pain Intensity: 0 Quality: + other (fall) Associated symptoms: + weakness and + other (right ring finger pain, right elbow pain) The patient is an 84 year old male who presents to the Emergency Room with complaints of an episode of a fall occurring possibly last night. Per nursing staff, the patient was found by a industrial maintenance manager at his independent living him at [facility] on the floor. They report that he had a pillow under his head and his clothes were next to him, but it is unknown how long he has been laying on the ground. The patient states that he is unsure how he fell, but notes that he believes his last meal was a garden salad yesterday afternoon. He states that he does remember not being able to get up on his own when EMS arrived. The patient complains of right ring finger pain and right elbow pain. The patients daughter in law notes that the patient has been falling frequently and needs to move to the next level of care, but he is stubborn and refuses to. She notes that she has not visited him in some time as his other son and daughter are to be visiting, but last time they saw him several months ago, he had chronic weakness. The patient notes that he believes he is on a blood thinner. Home Medications Home Medications Medication Instructions Recorded Confirmed Type amlodipine 5 mg PO DAILY 09/22/19 09/22/19 History aspirin 81 mg PO DAILY 09/22/19 09/22/19 History atorvastatin 20 mg PO DAILY 09/22/19 09/22/19 History clopidogrel 75 mg PO DAILY 09/22/19 09/22/19 History escitalopram oxalate 20 mg PO DAILY 09/22/19 09/22/19 History ferrous sulfate 325 mg PO BID 09/22/19 09/22/19 History furosemide 20 mg PO DAILY 09/22/19 09/22/19 History metoprolol succinate 50 mg PO DAILY 09/22/19 09/22/19 History pantoprazole 40 mg PO BID 09/22/19 09/22/19 History Allergies Allergy/AdvReac Type Severity Reaction Status Date / Time No Known Allergies Allergy Verified 09/22/19 14:33 Past Med/Surg History Medical History CKD (chronic kidney disease) stage 3, GFR 30-59 ml/min (Chronic) Anemia (Chronic) Chronic atrial fibrillation (Chronic) not OAC candidate History of abdominal aortic aneurysm (AAA) (Chronic) History of nephrolithiasis (Chronic) HTN (hypertension) (Chronic) Diabetes (Chronic) Hyperlipidemia (Chronic) CAD (coronary artery disease) (Chronic) hx of CABG x 3 in 1998 CVA (cerebral vascular accident) (Resolved) hx of ICH in 1998 hx of ischemic CVA Anxiety (Chronic) Carotid artery stenosis (Chronic) R CEA in 2001; L CEA in 06/2015 Former smoker (Resolved) CHF (congestive heart failure) (Chronic) NSTEMI (non-ST elevation myocardial infarction) (Acute) Surgical History History of appendectomy (Chronic) History of esophagogastroduodenoscopy (EGD) (Chronic) MW Tear 01/2017 History of AAA (abdominal aortic aneurysm) repair (Chronic) History of CEA (carotid endarterectomy) (Chronic) R CEA in 2001; L CEA in 06/2015 Hx of CABG (Resolved) Family History Other Coronary heart disease Social History Preferred Language: Sami Communication Ability: Impaired 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 current occupational status: retired Other Information That Helps Us Care for You: No Feels Safe at Home: Yes Safety Concerns: Feels Safe At This Time Smoking Status: Former smoker Tobacco Type: cigarettes ; Cigarettes Per Day: 2- 3 cans/wk ; Hx Alcohol Use: No Hx Substance Use: No Review of Systems See HPI for pertinent positives & negatives. and A total of 10 systems reviewed and were otherwise negative Physical Exam Vital Signs Vital Signs - 24 hr 09/22/19 12:33 09/22/19 13:53 09/22/19 15:19 Temperature 37.0 C Temperature Source Oral Sepsis Recent Fever Within 48 Hours No Sepsis Action Taken by Nursing No Action Required Pulse Rate 78 Pulse Rate [Right Finger] 82 81 Respiratory Rate 24 20 22 Respiratory Effort / Characteristics Non-Labored Non-Labored Respiratory Depth Normal Normal Respiratory Pattern Blood Pressure 160/77 H Blood Pressure [Left Arm] 178/86 H 178/131 H Blood Pressure [Right Arm] Blood Pressure Mean 104 Blood Pressure Mean [Left Arm] 116 146 Blood Pressure Mean [Right Arm] Pulse Oximetry 98 99 96 Oxygen Delivery Method Room Air Room Air 09/22/19 16:05 09/22/19 16:31 09/22/19 17:00 Temperature Temperature Source Sepsis Recent Fever Within 48 Hours Sepsis Action Taken by Nursing Pulse Rate Pulse Rate [Right Finger] 80 90 88 Respiratory Rate 23 18 26 H Respiratory Effort / Characteristics Non-Labored Spontaneous Non-Labored Spontaneous Respiratory Depth Normal Normal Respiratory Pattern Regular Blood Pressure Blood Pressure [Left Arm] Blood Pressure [Right Arm] 193/89 H 175/86 H 180/87 H Blood Pressure Mean Blood Pressure Mean [Left Arm] Blood Pressure Mean [Right Arm] 123 115 118 Pulse Oximetry 96 97 97 Oxygen Delivery Method Room Air Room Air Room Air GENERAL: Mildly confused. Awake, alert to self and place,, in no distress HENT: Normocephalic, atraumatic. Oropharynx with dry mucous membranes and otherwise unremarkable. EYES: Normal conjunctiva. Sclera non-icteric. EOMI. No nystamgus. PEARRL. NECK: Supple. No nuchal rigidity. FROM. No JVD. RESPIRATORY: Clear to auscultation bilaterally. CARDIAC: Regular rate, irregular rhythm. Extremities warm and well perfused. Pulses equal. ABDOMEN: Soft, non-distended. No tenderness to palpation. No rebound or guarding. No masses. RECTAL: Deferred. MUSCULOSKELETAL: Chest examination reveals no tenderness. The back is sym metrical on inspection without obvious abnormality. Mild erythema of the right mid back without warmth, crepitus or fluctuance. There is no CVA tenderness to palpation. No joint edema. Tenderness of the right elbow with a 1 cm posterior skin tear. Tenderness of the right fourth distal phalanx without any crepitus. Full ROM of the right upper extremity without difficulty. Full ROM of the hips bilaterally. LOWER EXTREMITIES: Calves are equal size bilaterally and non-tender. No edema. No discoloration. NEURO: Normal sensorium. No sensory or motor deficits noted. SKIN: No rash or jaundice noted. Course 1332: The patient was evaluated in room B3B. A complete history and physical exam was performed. 1622: I reevaluated the patient and updated him and his family on his test results. I discussed the treatment plan with them. They verbally agree and understand. 1632: I discussed the patient's case with Vanda Saucedo PA-C- [facility] Hospitalist. She will evaluate the patient for further management under Dr. Ching's service. Administered Medications Acetaminophen (Tylenol) 1,000 mg PO Q8H ADRY Stop: 10/22/19 21:59 Last Admin: 09/22/19 23:00 Dose: 1,000 mg Documented by: [id number] Ferrous Sulfate (Feosol) 325 mg PO BID ADRY Stop: 10/22/19 20:59 Last Admin: 09/22/19 20:55 Dose: 325 mg Documented by: [id number] Ampicillin Sodium/Sulbactam Sodium 3,000 mg/ Sodium Chloride 108 mls @ 200 mls/hr IV Q6H ADRY; Protocol Stop: 09/29/19 17:35 Last Infusion: 09/23/19 00:01 Dose: 0 mls/hr Documented by: [id number] Admin: 09/22/19 23:01 Dose: 108 mls/hr Documented by: [id number] Infusion: 09/22/19 21:27 Dose: 0 mls/hr Documented by: [id number] Admin: 09/22/19 20:54 Dose: 200 mls/hr Documented by: [id number] Sodium Chloride (Nss 1000ml) 1,000 mls @ 75 mls/hr IV .[id number] ADRY Stop: 09/23/19 22:54 Last Admin: 09/22/19 20:59 Dose: 75 mls/hr Documented by: [id number] Lidocaine (Lidoderm 5%) 1 patch TD HS ADRY Stop: 10/22/19 22:29 Last Admin: 09/22/19 23:00 Dose: 1 patch Documented by: [id number] Pantoprazole Sodium (Protonix) 40 mg PO BID ADRY Stop: 10/22/19 20:59 Last Admin: 09/22/19 20:55 Dose: 40 mg Documented by: [id number] Discontinued Medications Amlodipine Besylate (Norvasc) 5 mg PO NOW ONE Stop: 09/22/19 17:38 Last Admin: 09/22/19 18:25 Dose: 5 mg Documented by: [id number] Hydralazine HCl (Hydralazine Hcl) 10 mg IV NOW STA Stop: 09/22/19 20:36 Last Admin: 09/22/19 20:58 Dose: 10 mg Documented by: [id number] Sodium Chloride (Nss) 500 mls @ 999 mls/hr IV .Q31M ONE Stop: 09/22/19 14:15 Last Infusion: 09/22/19 14:55 Dose: 0 mls/hr Documented by: [id number] Admin: 09/22/19 14:22 Dose: 999 mls/hr Documented by: [id number] Metoprolol Succinate (Toprol Xl) 50 mg PO NOW STA Stop: 09/22/19 17:38 Last Admin: 09/22/19 20:55 Dose: 50 mg Documented by: [id number] Miscellaneous (Remove Lidoderm Patch) 1 ea N/A DAILY@2100 ADRY Stop: 10/22/19 20:59 Last Admin: 09/22/19 22:08 Dose: Not Given Documented by: [id number] Medical Decision Making Differential Diagnosis Differential Diagnosis includes but is not limited to dehydration, stroke, anemia, hypoglycemia, hyponatremia, hypernatremia, urinary tract infection, pneumonia, bronchitis, sepsis, gastroenteritis, additional abdominal pathology, metabolic abnormalities and infections. Medical Records Attestation: I reviewed the patient's medical records. Home Medications Current Medication List: was personally reviewed by me Laboratory Data Attestation: I reviewed the patient's lab results. Result diagrams: 09/22/19 13:48 09/22/19 13:48 Lab Results 09/22/19 09/22/19 09/22/19 Range/Units 13:48 13:48 13:48 WBC 10.68 (4.8-10.8) K/uL RBC 4.71 (4.7-6.1) M/uL Hgb 13.1 L (14.0-18.0) g/dL Hct 40.2 L (42-52) % MCV 85.4 (80-100) fL MCH 27.8 (25-34) pg MCHC 32.6 (32-36) g/dL RDW Std Deviation 49.4 H (36.4-46.3) fL RDW Coeff of Sharlene 15.9 H (11.5-14.5) % Plt Count 168 (130-400) K/uL MPV 9.6 (7.4-10.4) fL Immature Gran % (Auto) 0.3 % Neut % (Auto) 83.0 % Lymph % (Auto) 9.0 % [place] % (Auto) 7.1 % Eos % (Auto) 0.2 % Baso % (Auto) 0.4 % Immature Gran # (Auto) 0.03 H (0.00-0.02) K/uL Neut # (Auto) 8.87 H (1.4-6.5) K/uL Lymph # (Auto) 0.96 L (1.2-3.4) K/uL [place] # (Auto) 0.76 H (0.11-0.59) K/uL Eos # (Auto) 0.02 (0-0.5) K/uL Baso # (Auto) 0.04 (0-0.2) K/uL PT 11.3 (9.0-12.0) Seconds INR 1.1 (0.9-1.1) Sodium 142 (136-145) mmol/L Potassium 4.1 (3.5-5.1) mmol/L Chloride 107 (98-107) mmol/L Carbon Dioxide 25 (21-32) mmol/L Anion Gap 10.0 (3-11) BUN 25 H (7-18) mg/dl Creatinine 1.21 (0.6-1.4) mg/dl Est Cr Clr Drug Dosing Not Reportable Est GFR ( Amer) 63.3 Est GFR (Non-Af Amer) 54.6 BUN/Creatinine Ratio 20.7 H (10-20) Glucose 120 H (70-99) mg/dl Calcium 9.5 (8.5-10.1) mg/dl Phosphorus 3.2 (2.5-4.9) mg/dl Magnesium 2.2 (1.8-2.4) mg/dl Total Bilirubin 1.0 (0.2-1) mg/dl AST 25 (15-37) U/L ALT 22 (12-78) U/L Alkaline Phosphatase 190 H (45-117) U/L Total Creatine Kinase 623 H (39-308) U/L Troponin I 0.034 (0-0.045) ng/ml Total Protein 8.0 (6.4-8.2) gm/dl Albumin 3.9 (3.4-5.0) gm/dl Globulin 4.1 H (2.5-4.0) gm/dl Albumin/Globulin Ratio 1.0 (0.9-2) Lipase 47 L (73-393) U/L TSH 0.569 (0.300-4.500) uIu/ml Urine Color Urine Appearance (Clear) Urine pH (4.5-7.5) Ur Specific [place] (1.000-1.030) Urine Protein (Negative) Urine Glucose (UA) (Negative) Urine Ketones (Negative) Urine Blood (Negative) Urine Nitrite (Negative) Urine Bilirubin (Negative) Urine Urobilinogen (Negative) Ur Leukocyte Esterase (Negative) Urine WBC (Auto) (0-5) /hpf Urine RBC (Auto) (0-4) /hpf U Hyaline Cast (Auto) (0-5) /lpf U Epithel Cells (Auto) (0-5) /lpf Urine Bacteria (Auto) (Negative) 09/22/19 Range/Units 14:08 WBC (4.8-10.8) K/uL RBC (4.7-6.1) M/uL Hgb (14.0-18.0) g/dL Hct (42-52) % MCV (80-100) fL MCH (25-34) pg MCHC (32-36) g/dL RDW Std Deviation (36.4-46.3) fL RDW Coeff of Sharlene (11.5-14.5) % Plt Count (130-400) K/uL MPV (7.4-10.4) fL Immature Gran % (Auto) % Neut % (Auto) % Lymph % (Auto) % [place] % (Auto) % Eos % (Auto) % Baso % (Auto) % Immature Gran # (Auto) (0.00-0.02) K/uL Neut # (Auto) (1.4-6.5) K/uL Lymph # (Auto) (1.2-3.4) K/uL [place] # (Auto) (0.11-0.59) K/uL Eos # (Auto) (0-0.5) K/uL Baso # (Auto) (0-0.2) K/uL PT (9.0-12.0) Seconds INR (0.9-1.1) Sodium (136-145) mmol/L Potassium (3.5-5.1) mmol/L Chloride (98-107) mmol/L Carbon Dioxide (21-32) mmol/L Anion Gap (3-11) BUN (7-18) mg/dl Creatinine (0.6-1.4) mg/dl Est Cr Clr Drug Dosing Est GFR ( Amer) Est GFR (Non-Af Amer) BUN/Creatinine Ratio (10-20) Glucose (70-99) mg/dl Calcium (8.5-10.1) mg/dl Phosphorus (2.5-4.9) mg/dl Magnesium (1.8-2.4) mg/dl Total Bilirubin (0.2-1) mg/dl AST (15-37) U/L ALT (12-78) U/L Alkaline Phosphatase (45-117) U/L Total Creatine Kinase (39-308) U/L Troponin I (0-0.045) ng/ml Total Protein (6.4-8.2) gm/dl Albumin (3.4-5.0) gm/dl Globulin (2.5-4.0) gm/dl Albumin/Globulin Ratio (0.9-2) Lipase (73-393) U/L TSH (0.300-4.500) uIu/ml Urine Color Yellow Urine Appearance Clear (Clear) Urine pH 5.0 (4.5-7.5) Ur Specific [place] 1.025 (1.000-1.030) Urine Protein 3+ H (Negative) Urine Glucose (UA) Negative (Negative) Urine Ketones Trace H (Negative) Urine Blood 2+ H (Negative) Urine Nitrite Negative (Negative) Urine Bilirubin Negative (Negative) Urine Urobilinogen Negative (Negative) Ur Leukocyte Esterase Negative (Negative) Urine WBC (Auto) 1-5 (0-5) /hpf Urine RBC (Auto) 0-4 (0-4) /hpf U Hyaline Cast (Auto) 1-5 (0-5) /lpf U Epithel Cells (Auto) 20-30 H (0-5) /lpf Urine Bacteria (Auto) 1+ H (Negative) Imaging Data Radiologist's Impression: Radiology results as stated below per my review and the radiologist's interpretation: XR chest 1V not portable HISTORY: Fall. Right-sided Chest Pain COMPARISON: Chest 12/04/2017. FINDINGS: The heart remains mildly enlarged. There are poststernotomy changes. No pleural effusions. No pneumothorax. Calcified granuloma within the left lower lung zone. Mild diffuse interstitial thickening which remains unchanged. This may be chronic. Mildly displaced right lateral seventh and eighth rib fractures. IMPRESSION: Mildly displaced right lateral seventh and eighth rib fractures. No pneumothorax. Electronically signed by: Thom Smith M.D. 09/22/2019 3:25 PM RIGHT ELBOW 3 VIEWS HISTORY: Right elbow pain fall COMPARISON: None. FINDINGS: There is no fracture or dislocation. Soft tissues are unremarkable. No radiopaque foreign bodies. Evaluation for an elbow effusion is essentially nondiagnostic given the positioning. No large effusion identified. Vascular calcifications are noted. IMPRESSION: Suboptimal positioning. No definite fractures. Electronically signed by: Thom Smith M.D. 09/22/2019 3:20 PM RIGHT HAND 3 VIEWS HISTORY: Right hand pain fall COMPARISON: None. FINDINGS: There is no fracture or dislocation. Soft tissues are unremarkable. No radiopaque foreign bodies. The bones are osteopenic. Vascular calcifications are noted. 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 IMPRESSION: No fracture or dislocation within the right hand. Electronically signed by: Thom Smith M.D. 09/22/2019 3:22 PM XR thoracic spine 3V routine HISTORY: Trauma. Pain. pain fall COMPARISON: None. FINDINGS: There is no fracture. No subluxation. Moderate degenerative disc changes throughout. Osteopenia. Moderate anterior osteophyte formation. Left and to a lesser extent right basilar parenchymal infiltrative change. IMPRESSION: 1. No acute process of the thoracic spine. 2. Moderate degenerative change. 3. Moderate left and to a lesser extent right basilar parenchymal infiltrate. The above report was generated using voice recognition software. It may contain grammatical, syntax or spelling errors. Electronically signed by: Keyshawn Unger M.D. 09/22/2019 3:21 PM XR lumbar spine 2-3V CLINICAL HISTORY: pain fall trauma. Pain. COMPARISON STUDY: No previous studies for comparison. FINDINGS: Generalized degenerative disc changes throughout. Vertebral body stature is normal. No evidence for compression deformity. Bilateral nephrocalcinosis. Possible aneurysm abdominal aorta with ultrasound of the abdominal aorta recommended as follow-up. IMPRESSION: 1. Mild degenerative changes of the lumbar spine. 2. No acute process. 3. Bilateral nephrocalcinosis. 4. Potential aneurysm abdominal aorta with ultrasonic evaluation of the abdominal aorta recommended. The above report was generated using voice recognition software. It may contain grammatical, syntax or spelling errors. Electronically signed by: Keyshawn Unger M.D. 09/22/2019 3:[address]AST CT DOSE: 924.39 mGy.cm HISTORY: Fall. Head and neck pain. TECHNIQUE: Multiaxial CT images of the head were performed without the use of intravenous contrast. Automated exposure control was utilized for this study. A dose lowering technique was utilized adhering to the principles of ALARA. Comparison: Head CT 12/04/2017. Findings: The paranasal sinuses and mastoid air cells are clear. Prior right suboccipital craniectomy. No calvarial fractures identified. Atrophy and microvascular ischemic changes are again noted. Encephalomalacia within the right cerebellar hemisphere is also unchanged consistent with postoperative change. There is no mass, hematoma, midline shift, acute infarct. Old bilateral basal ganglia lacunar infarcts are again noted. Impression: No significant change compared to the prior study. No acute intracranial abnormality. Electronically signed by: Thom Smith M.D. 09/22/2019 3:[address] cervical spine wo con CT DOSE: HISTORY: Trauma. Pain. pain fall TECHNIQUE: Multiaxial CT images of the cervical spine were performed and reformatted in the sagittal and coronal plane without the use of contrast. A dose lowering technique was utilized adhering to the principles of ALARA. COMPARISON: 12/04/2017 FINDINGS: No fractures. No subluxation. Prevertebral soft tissues and the C1-C2 interval are intact. No pneumothorax. Generalized degenerative change similar compared to the prior study. IMPRESSION: No fractures within the cervical spine. Generalized degenerative change The above report was generated using voice recognition software. It may contain grammatical, syntax or spelling errors. Electronically signed by: Keyshawn Unger M.D. 09/22/2019 2:45 PM ECG Data Attestation: I personally reviewed and interpreted this ECG as follows: Indication: weakness Rate (beats per minute): 92 Rhythm: atrial fibrillation Findings: + other (normal axis, non-specific ST and T wave abnormality); no PAC, no PVC, no ST depression, no ST elevation, no acute ischemic change and no ectopy Comparison ECG Date: from (12/04/2017) Change: no significant change Blood Pressure Blood Pressure Findings: Elevated blood pressure Blood Pressure Disposition: Referred to patients primary care provider MDM Narrative The patient is a pleasant 84-year-old gentleman who presents emergency department after being found down in his independent living home at [facility] f or unclear duration and etiology per hpi. Of note the patient is a poor historian and is unable to say why he was on the ground. The patient does have mild confusion. [id number], who is construction administrative assistant for our ED group was at the bedside and reports that caregiver for the patient reports he has been becoming increasingly more confused over the past several months but had sufficient capacity to refuse medical evaluation. On arrival the patient is no acute distress, afebrile stable vital signs. The patient appears clinically dry. He has a minor skin tear to the posterior aspect of his right elbow. Otherwise full range of motion of shoulders elbows wrists, hips, knees, ankles bilaterally. CT head and C-spine negative for fractures. Plain films demonstrate widely displaced fractures of the right lateral seventh and eighth rib without pneumothorax. WBC within normal limits. H/H 13.1/40.2 improved from prior values. Platelets within normal limits. Chemistry without acidosis. CPK 623. Troponin 0.042, within normal limits. UA with 1+ bacteria however with epithelial cells. Given the patient's generalized weakness and progressive confusion reasonable to admit the patient for further management including likely PT and OT evaluation and placement. [place] with question of basilar opacity however given afebrile will defer decision for tx to admitting team. Pat faustino and [id number] at the bedside are agreeable with admission. Case was discussed with Candace Cabral PAC, who evaluate the patient for admission. Impression & Plan Weakness, Elevated CPK, Confusion, Fracture of ribs, two, closed Discharge Plan Visit Data *Final* Discharge Date/Time: 09/22/19 19:25 Chief Complaint: Fall ED Provider: Jorge Levy Discharge Problem: Weakness, Elevated CPK, Confusion, Fracture of ribs, two, closed Patient Disposition: Admitted As Inpatient Discharge Instructions Interventions: ED Discharge Assessment Last Done: 09/22/19 19:25 Discharge Problem: Fracture of ribs, two, closed Qualifiers: Encounter type: initial encounter Laterality: right Qualified Code(s): S22.41XA - Multiple fractures of ribs, right side, initial encounter for closed fracture The scribe's documentation has been prepared under my direction and personally reviewed by me in its entirety. I confirm that the note above accurately reflects all work, treatment, procedures, and medical decision making performed by me.
[2019-09-22] MEDS: LIDOCAINE 5% 1 PATCH TD SCH (23:00)
[2019-09-22] MEDS: ACETAMINOPHEN 500 MG TAB PO SCH (23:00)
[2019-09-23] MEDS: AMPICILLIN/SULBACTAM SOD 3,000 MG in 0.9 % SODIUM CHLORIDE 100 ML IV SCH ×3 (05:39→16:50)
[2019-09-23] MEDS: HEPARIN SOD 5,000 UNIT/0.5 ML VIAL SQ SCH ×3 (05:40→21:27)
[2019-09-23] MEDS: ACETAMINOPHEN 500 MG TAB PO SCH ×3 (05:40→21:27)
[2019-09-23 07:05] LABS: Basophils # (auto) 0.04 K/uL (0-0.2); Basophils % (auto) 0.6 %; Eosinophils # (auto) 0.18 K/uL (0-0.5); Eosinophils % (auto) 2.7 %; Hematocrit (blood only) 37.5 % (42-52); Hemoglobin 11.9 g/dL (14.0-18.0); Immature Granulocytes # (auto) 0.02 K/uL (0.00-0.02); Immature Granulocytes % (auto) 0.3 %; Lymphocytes # (auto) 0.98 K/uL (1.2-3.4); Mean Corpuscular Hemoglobin 27.1 pg (25-34); Mean Corpuscular Hgb Conc 31.7 g/dL (32-36); Mean Corpuscular Volume 85.4 fL (80-100); Mean Platelet Volume 9.8 fL (7.4-10.4); Monocytes % (auto) 9.2 %; Neutrophils # (auto) 4.73 K/uL (1.4-6.5); Neutrophils % (auto) 72.2 %; Platelet Count 142 K/uL (130-400); RDW Standard Deviation 50.2 fL (36.4-46.3); Red Blood Count 4.39 M/uL (4.7-6.1); White Blood Count 6.55 K/uL (4.8-10.8)
[2019-09-23 07:38] LABS: Albumin Level 3.2 gm/dl (3.4-5.0); Calcium 8.4 mg/dl (8.5-10.1); Creatinine Clr Calc Pharmacy 45.6 ml/min; Est GFR (African American) 75.2; Est GFR (Non-African American) 64.9; Magnesium 1.9 mg/dl (1.8-2.4); Potassium 3.4 mmol/L (3.5-5.1)
[2019-09-23 07:42] LABS: Bilirubin,Total 0.9 mg/dl (0.2-1); Globulin 3.3 gm/dl (2.5-4.0); Total Protein 6.5 gm/dl (6.4-8.2)
[2019-09-23 07:43] LABS: Estimated Average Glucose 131 mg/dl; Hemoglobin A1C 6.2 % (4.5-5.6)
[2019-09-23] MEDS: PANTOprazole 40 MG TAB PO SCH ×2 (08:21→20:56)
[2019-09-23] MEDS: CLOPIDOGREL BISULFATE 75 MG TAB PO SCH (08:21)
[2019-09-23] MEDS: ASPIRIN 81 MG ECTAB PO SCH (08:21)
[2019-09-23] MEDS: AMLODIPINE BESYLATE 5 MG TAB PO SCH (08:21)
[2019-09-23] MEDS: FERROUS SULFATE 325 MG TAB PO SCH ×2 (08:21→20:56)
[2019-09-23] MEDS: ESCITALOPRAM OXALATE 20 MG TAB PO SCH (08:21)
[2019-09-23] MEDS ORDERED: LIDOCAINE 5% 1 PATCH TD SCH (09:00)
[2019-09-23] MEDS: METOPROLOL SUCC 50MG EXT REL TAB PO SCH (09:19)
[2019-09-23 10:21] LABS: Influenza A virus by PCR Neg for Influ A (Neg); Influenza B virus by PCR Neg for Influ B (Neg)
[2019-09-23 10:59] LABS: Amphetamines+Metham, Urine Neg (Neg); Barbiturates, Urine Neg (Neg); Benzodiazepine, Urine Neg (Neg); Cocaine, Urine Neg (Neg); MDMA (Ecstacy), Urine Neg (Neg); Methadone, Urine Neg (Neg); Opiate, Urine Neg (Neg); Phencyclidine, Urine Neg (Neg)
[2019-09-23 11:00] LABS: Creatinine Urine Random 83.7 mg/dl
[2019-09-23 11:03] LABS: Protein Creatinine Ratio Urine 4.9 (0-0.2); Total Protein Urine Random 409.2 mg/dl (0-11.9)
[2019-09-23] MEDS: SODIUM CHLORIDE 0.9% 1000ML 1,000 ML IV SCH (11:16)
--- NOTE | 2019-09-23 14:29 | Hospitalist Progress Note ---
Date of Service September 23, 2019 Assessment & Plan (1) Weakness: (2) Encephalopathy: Presented with confusion, metabolic encephalopathy secondary to dehydration acute renal failure Mental status gradually improving Patient still very forgetful, could not relate to the events that led him ho spital admission Could not tell me where he is at, thinks that he is in [place] CT head noncontrast on admission: No acute intracranial abnormality Patient does not have any focal neurological deficit Patient will be continued with supportive care to treatment of dehydration acute renal failure PT OT evaluation requested Patient may need rehab (3) Rhabdomyolysis: Due to fall, unknown duration of lying in the floor Patient was found by tool maintenance technician lying on the floor confused Was given gentle IV fluids given history of CHF with diastolic dysfunction Clinically much improved today Stable to be transferred out of telemetry (4) PNA (pneumonia): Possible pneumonia secondary to aspiration, when patient was obtunded Chest x-ray shows possible basilar atelectasis/infiltration Patient does not have fever, cough, normal white count Normal white cell count Patient was started with IV Unasyn for possible aspiration, We will discontinue IV antibiotic after 48 hours if no conclusive evidence of pneumonia/infection present (5) Rib fracture: Secondary to recent fall CXR right 7th and 8th lateral rib fx Conservative treatment with pain management, ordered for incentive spirometry (6) Chronic atrial fibrillation: Rate controlled on metoprolol Not candidate for oral anti-coagulation secondary to fall risk Follows with [facility] cardiology PROLONGED QTC EKG shows QTC prolonged more than 500 Follow daily EKG, avoid medications which can worsening EKG prolongation Monitor electrolytes, K and mag level Potassium above 4, magnesium of 2 to prevent arrhythmia (7) CHF (congestive heart failure): No signs or symptoms of volume overload Lasix is kept on hold for dehydration/elevated CK Monitor daily weight Monitor volume status (8) Microscopic hematuria: recommend repeat UA - if persistent refer to urology on outpt basis (9) CAD (coronary artery disease): No complaint of chest pain shortness of breath no angina symptoms Troponin mildly elevated, without any EKG changes suggestive of ischemia continue asa, plavix, BB Statin on hold for elevated CPK level (10) CVA (cerebral vascular accident): hx of CVA; hx of ICH in 1998 no residual deficits on ASA, plavix Statin on hold for elevated CPK level (11) Diabetes: Well-controlled A1C 6.2. carb consistent diet (12) HTN (hypertension): Blood pressure elevated in ED Question of secondary to pain versus noncompliance with medication Patient states he did not take any medications today, although history unreliable Patient is continued with Norvasc 5 mg daily, Toprol-XL 50 mg daily Will need continued adjustment of antihypertensives if indicated (13) Hyperlipidemia: Hold statin for elevated CK/rhabdomyolysis (14) DVT prophylaxis: SCD/TEDS Order for subcu heparin Disposition: Patient was living in independent appointment at [facility] PT OT evaluation requested May need transition to skilled rehab on discharge from hospital Social service consulted for discharge planning Subjective Patient found lying comfortably in bed, denies of any pain or discomfort No complaint of shortness of breath denies of chest pain, has been afebrile, vitals been stable Physical Exam Constitutional: WD/WN, vitals as above no acute distress Eyes: PERRL, conjunctivae normal, anicteric sclerae ENMT: external ear and nose normal, oropharynx normal Neck: trachea midline, no thyromegaly Respiratory: no respiratory distress, no labored breathing and no cough Auscultation: no wheezes Cardiovascular: RRR, no murmur, no edema Gastrointestinal (Abdomen): normal bowel sounds, soft, nontender, no hepatosplenomegaly Musculoskeletal: Extremities: + abnormal strength (Generalized weakness) Skin: no rashes, warm and dry Neurologic: PERRL, EOMI, accommodation nl, no face palsy, no dysarthria Psychiatric: Orientation: alert and oriented to person Results & Data Vital Signs (Past 12 Hours) Vital Signs Temp Pulse Resp BP BP Pulse Ox 09/23/19 11:18 36.3 C L 75 18 139/73 95 09/23/19 08:38 36.7 C 75 18 137/77 95 09/23/19 02:53 36.7 C 72 20 148/79 H 96
[2019-09-23] MEDS: LIDOCAINE 5% 1 PATCH TD SCH (20:56)
[2019-09-24] MEDS: AMPICILLIN/SULBACTAM SOD 3,000 MG in 0.9 % SODIUM CHLORIDE 100 ML IV SCH ×2 (01:48→09:08)
[2019-09-24] MEDS: ACETAMINOPHEN 500 MG TAB PO SCH ×3 (05:37→21:38)
[2019-09-24] MEDS: HEPARIN SOD 5,000 UNIT/0.5 ML VIAL SQ SCH ×3 (05:37→21:35)
[2019-09-24] MEDS: METOPROLOL SUCC 50MG EXT REL TAB PO SCH (08:56)
[2019-09-24] MEDS: AMLODIPINE BESYLATE 5 MG TAB PO SCH (08:56)
[2019-09-24] MEDS ORDERED: AMLODIPINE BESYLATE 5 MG TAB PO SCH (09:30)
[2019-09-24] MEDS: ESCITALOPRAM OXALATE 20 MG TAB PO SCH (09:54)
[2019-09-24] MEDS: ASPIRIN 81 MG ECTAB PO SCH (09:55)
[2019-09-24] MEDS: FERROUS SULFATE 325 MG TAB PO SCH ×2 (09:55→21:34)
[2019-09-24] MEDS: CLOPIDOGREL BISULFATE 75 MG TAB PO SCH (09:55)
[2019-09-24] MEDS: PANTOprazole 40 MG TAB PO SCH ×2 (09:55→21:34)
[2019-09-24 10:00] LABS: BUN Creatinine Ratio 16.3 (10-20); Calcium 9.1 mg/dl (8.5-10.1); Creatinine Clr Calc Pharmacy 38.6 ml/min; Est GFR (African American) 61.5; Est GFR (Non-African American) 53.1; Potassium 3.5 mmol/L (3.5-5.1)
--- NOTE | 2019-09-24 18:47 | Hospitalist Progress Note ---
Date of Service September 24, 2019 Assessment & Plan (1) Weakness: (2) Encephalopathy: Presented with confusion, metabolic encephalopathy secondary to dehydration acute renal failure Baseline dementia Mental status gradually improving Patient still very forgetful, could not relate to the events that led him hospital admission CT head noncontrast on admission: No acute intracranial abnormality PT OT evaluation requested Patient may need rehab (3) Rhabdomyolysis: Due to fall, unknown duration of lying in the floor Patient was found by maintenance construction helper lying on the floor confused Patient will continue to improve, observe fall precaution, PT OT (4) PNA (pneumonia): Possible pneumonia secondary to aspiration, when patient was obtunded Chest x-ray shows possible basilar atelectasis/infiltration Patient does not have fever, cough, normal white count Normal white cell count Patient was started with IV Unasyn for possible aspiration, Antibiotic discontinued after 48 hours is no conclusive evidence of pneumonia/infection noted (5) Rib fracture: Secondary to recent fall CXR right 7th and 8th lateral rib fx Conservative treatment with pain management, ordered for incentive spirometry (6) Chronic atrial fibrillation: Rate controlled on metoprolol Not candidate for oral anti-coagulation secondary to fall risk Follows with [facility] cardiology PROLONGED QTC EKG shows QTC prolonged more than 500 Follow daily EKG, avoid medications which can worsening EKG prolongation Monitor electrolytes, K and mag level Potassium above 4, magnesium of 2 to prevent arrhythmia (7) CHF (congestive heart failure): No signs or symptoms of volume overload Lasix is kept on hold for dehydration/elevated CK Monitor daily weight Monitor volume status (8) Microscopic hematuria: recommend repeat UA - if persistent refer to urology on outpt basis (9) CAD (coronary artery disease): No complaint of chest pain shortness of breath no angina symptoms Troponin mildly elevated, without any EKG changes suggestive of ischemia continue asa, plavix, BB Statin on hold for elevated CPK level (10) CVA (cerebral vascular accident): hx of CVA; hx of ICH in 1998 no residual deficits on ASA, plavix Statin on hold for elevated CPK level (11) Diabetes: Well-controlled A1C 6.2. carb consistent diet (12) HTN (hypertension): Blood pressure elevated in ED Question of secondary to pain versus noncompliance with medication Patient states he did not take any medications today, although history unreliable Patient is continued with Norvasc 5 mg daily, Toprol-XL 50 mg daily Will need continued adjustment of antihypertensives if indicated (13) Hyperlipidemia: Hold statin for elevated CK/rhabdomyolysis (14) DVT prophylaxis: SCD/TEDS Order for subcu heparin Disposition: Patient was living in independent appointment at [facility] OT evaluation requested May need transition to skilled rehab on discharge from hospital Social service consulted for discharge planning Subjective Patient denies of any pain or discomfort, very pleasant Baseline dementia Complaint of chest pain, shortness of breath No pleuritic chest pain or discomfort No cough, no fever chills Physical Exam Constitutional: WD/WN, vitals as above no acute distress Eyes: PERRL, conjunctivae normal, anicteric sclerae ENMT: external ear and nose normal, oropharynx normal Neck: trachea midline, no thyromegaly Respiratory: no respiratory distress, no labored breathing and no cough Auscultation: no wheezes Cardiovascular: RRR, no murmur, no edema Gastrointestinal (Abdomen): normal bowel sounds, soft, nontender, no hepatosplenomegaly Musculoskeletal: Extremities: + abnormal strength (Generalized weakness) Skin: no rashes, warm and dry Neurologic: PERRL, EOMI, accommodation nl, no face palsy, no dysarthria Psychiatric: Orientation: alert and oriented to person Baseline dementia Results & Data Vital Signs (Past 12 Hours) Vital Signs Temp Pulse Resp BP BP Pulse Ox 09/24/19 15:54 36.8 C 81 18 167/79 H 91 09/24/19 13:27 139/84 09/24/19 07:18 36.9 C 109 H 16 211/97 H 199/108 H 92
[2019-09-24] MEDS: LIDOCAINE 5% 1 PATCH TD SCH (21:34)
[2019-09-25] MEDS: ACETAMINOPHEN 500 MG TAB PO SCH ×3 (06:19→21:04)
[2019-09-25] MEDS: HEPARIN SOD 5,000 UNIT/0.5 ML VIAL SQ SCH ×3 (06:19→20:58)
[2019-09-25] MEDS ORDERED: HydrALAZINE HCL 20 MG/ML VIAL IV PRN (06:20)
[2019-09-25] MEDS: PANTOprazole 40 MG TAB PO SCH ×2 (08:57→20:58)
[2019-09-25] MEDS: METOPROLOL SUCC 50MG EXT REL TAB PO SCH (08:57)
[2019-09-25] MEDS: CLOPIDOGREL BISULFATE 75 MG TAB PO SCH (08:57)
[2019-09-25] MEDS: FERROUS SULFATE 325 MG TAB PO SCH ×2 (08:58→20:58)
[2019-09-25] MEDS: AMLODIPINE BESYLATE 5 MG TAB PO SCH (08:58)
[2019-09-25] MEDS: ASPIRIN 81 MG ECTAB PO SCH (08:58)
--- NOTE | 2019-09-25 16:57 | Hospitalist Progress Note ---
Date of Service September 25, 2019 Assessment & Plan (1) Weakness: (2) Encephalopathy: Presented with confusion, metabolic encephalopathy secondary to dehydration acute renal failure Baseline dementia Mental status improved to approximate baseline, Very pleasant oriented to person only no agitation or combativeness noted CT head noncontrast on admission: No acute intracranial abnormality PT OT evaluation requested Patient may need rehab (3) Rhabdomyolysis: Due to fall, unknown duration of lying in the floor Patient was found by robotic maintenance technician lying on the floor confused Given IV fluids Patient will continue to improve, observe fall precaution, PT OT (4) PNA (pneumonia): Possible pneumonia secondary to aspiration, when patient was obtunded Chest x-ray shows possible basilar atelectasis/infiltration Patient does not have fever, cough, normal white count Normal white cell count Patient was started with IV Unasyn for possible aspiration, Antibiotic discontinued after 48 hours is no conclusive evidence of pneumonia/infection noted (5) Rib fracture: Secondary to recent fall CXR right 7th and 8th lateral rib fx Conservative treatment with pain management, ordered for incentive spirometry (6) Chronic atrial fibrillation: Rate controlled on metoprolol Not candidate for oral anti-coagulation secondary to fall risk Follows with [facility] cardiology PROLONGED QTC EKG shows QTC prolonged more than 500 Follow daily EKG, avoid medications which can worsening EKG prolongation Monitor electrolytes, K and mag level Potassium above 4, magnesium of 2 to prevent arrhythmia (7) CHF (congestive heart failure): No signs or symptoms of volume overload Lasix is kept on hold for dehydration/elevated CK Monitor daily weight Monitor volume status (8) Microscopic hematuria: recommend repeat UA - if persistent refer to urology on outpt basis (9) CAD (coronary artery disease): No complaint of chest pain shortness of breath no angina symptoms Troponin mildly elevated, without any EKG changes suggestive of ischemia continue asa, plavix, BB Statin on hold for elevated CPK level (10) CVA (cerebral vascular accident): hx of CVA; hx of ICH in 1998 no residual deficits on ASA, plavix Statin on hold for elevated CPK level (11) Diabetes: Well-controlled A1C 6.2. carb consistent diet (12) HTN (hypertension): Blood pressure elevated in ED Question of secondary to pain versus noncompliance with medication Patient states he did not take any medications today, although history unreliable Patient is continued with Norvasc 5 mg daily, Toprol-XL 50 mg daily Will need continued adjustment of antihypertensives if indicated (13) Hyperlipidemia: Hold statin for elevated CK/rhabdomyolysis (14) DVT prophylaxis: SCD/TEDS Order for subcu heparin Disposition: Patient was living in independent appointment at [facility] OT evaluation requested May need transition to skilled rehab on discharge from hospital Social service consulted for discharge planning Subjective Status remains unchanged, sitting up in chair very pleasant, denies of any pain or discomfort vitals stable Physical Exam Constitutional: WD/WN, vitals as above no acute distress Eyes: PERRL, conjunctivae normal, anicteric sclerae ENMT: external ear and nose normal, oropharynx normal Neck: trachea midline, no thyromegaly Respiratory: no respiratory distress, no labored breathing and no cough Auscultation: no wheezes Cardiovascular: RRR, no murmur, no edema Gastrointestinal (Abdomen): normal bowel sounds, soft, nontender, no hepatosplenomegaly Musculoskeletal: Extremities: + abnormal strength (Generalized weakness) Skin: no rashes, warm and dry Neurologic: PERRL, EOMI, accommodation nl, no face palsy, no dysarthria Psychiatric: Orientation: alert and oriented to person Results & Data Vital Signs (Past 12 Hours) Vital Signs Temp Pulse Resp BP BP Pulse Ox 09/25/19 15:44 36.9 C 67 20 158/81 H 95 09/25/19 11:33 37.1 C 63 18 162/82 H 95 09/25/19 07:46 36.8 C 66 16 179/81 H 96
[2019-09-25] MEDS: LIDOCAINE 5% 1 PATCH TD SCH ×2 (20:58→21:04)
[2019-09-26] MEDS: ACETAMINOPHEN 500 MG TAB PO SCH ×4 (05:42→20:16)
[2019-09-26] MEDS: HEPARIN SOD 5,000 UNIT/0.5 ML VIAL SQ SCH ×3 (05:42→20:05)
[2019-09-26] MEDS: FERROUS SULFATE 325 MG TAB PO SCH ×3 (10:19→20:16)
[2019-09-26] MEDS: ASPIRIN 81 MG ECTAB PO SCH (10:19)
[2019-09-26] MEDS: METOPROLOL SUCC 50MG EXT REL TAB PO SCH (10:19)
[2019-09-26] MEDS: CLOPIDOGREL BISULFATE 75 MG TAB PO SCH (10:20)
[2019-09-26] MEDS: AMLODIPINE BESYLATE 5 MG TAB PO SCH (10:20)
[2019-09-26] MEDS: PANTOprazole 40 MG TAB PO SCH ×3 (10:20→20:16)
--- NOTE | 2019-09-26 18:33 | Hospitalist Progress Note ---
Date of Service September 26, 2019 Assessment & Plan (1) Weakness: (2) Encephalopathy: Presented with confusion, metabolic encephalopathy secondary to dehydration acute renal failure Baseline dementia Mental status improved to approximate baseline, Very pleasant oriented to person only no agitation or combativeness noted CT head noncontrast on admission: No acute intracranial abnormality PT OT evaluation requested Patient may need rehab (3) Rhabdomyolysis: Due to fall, unknown duration of lying in the floor Patient was found by director facilities maintenance lying on the floor confused Given IV fluids Patient will continue to improve, observe fall precaution, PT OT (4) PNA (pneumonia): Possible pneumonia secondary to aspiration, when patient was obtunded Chest x-ray shows possible basilar atelectasis/infiltration Patient does not have fever, cough, normal white count Normal white cell count Patient was started with IV Unasyn for possible aspiration, Antibiotic discontinued after 48 hours is no conclusive evidence of pneumonia/infection noted (5) Rib fracture: Secondary to recent fall CXR right 7th and 8th lateral rib fx Conservative treatment with pain management, ordered for incentive spirometry (6) Chronic atrial fibrillation: Rate controlled on metoprolol Not candidate for oral anti-coagulation secondary to fall risk Follows with [facility] cardiology PROLONGED QTC EKG shows QTC prolonged more than 500 Follow daily EKG, avoid medications which can worsening EKG prolongation Monitor electrolytes, K and mag level Potassium above 4, magnesium of 2 to prevent arrhythmia (7) CHF (congestive heart failure): No signs or symptoms of volume overload Lasix is kept on hold for dehydration/elevated CK Monitor daily weight Monitor volume status (8) Microscopic hematuria: recommend repeat UA - if persistent refer to urology on outpt basis (9) CAD (coronary artery disease): No complaint of chest pain shortness of breath no angina symptoms Troponin mildly elevated, without any EKG changes suggestive of ischemia continue asa, plavix, BB Statin on hold for elevated CPK level (10) CVA (cerebral vascular accident): hx of CVA; hx of ICH in 1998 no residual deficits on ASA, plavix Statin on hold for elevated CPK level (11) Diabetes: Well-controlled A1C 6.2. carb consistent diet (12) HTN (hypertension): Blood pressure elevated in ED Question of secondary to pain versus noncompliance with medication Patient states he did not take any medications today, although history unreliable Patient is continued with Norvasc 5 mg daily, Toprol-XL 50 mg daily Will need continued adjustment of antihypertensives if indicated (13) Hyperlipidemia: Hold statin for elevated CK/rhabdomyolysis (14) DVT prophylaxis: SCD/TEDS Order for subcu heparin Disposition: Patient was living in independent appointment at [facility] Found to be on the floor, by maintenance staff Patient's son David wants to bring his father to his house, Referral made for home health services Plan to discharge home tomorrow with patient son Referral made for home health to [facility] Subjective Remains pleasantly demented, denies of any pain or discomfort Plan is to to be discharged home with patient's son tomorrow Physical Exam Constitutional: WD/WN, vitals as above no acute distress Eyes: PERRL, conjunctivae normal, anicteric sclerae ENMT: external ear and nose normal, oropharynx normal Neck: trachea midline, no thyromegaly Respiratory: no respiratory distress, no labored breathing and no cough Auscultation: no wheezes Cardiovascular: RRR, no murmur, no edema Gastrointestinal (Abdomen): normal bowel sounds, soft, nontender, no hepatosplenomegaly Musculoskeletal: Extremities: + abnormal strength (Generalized weakness) Skin: no rashes, warm and dry Neurologic: PERRL, EOMI, accommodation nl, no face palsy, no dysarthria Psychiatric: Orientation: alert and oriented to person Results & Data Vital Signs (Past 12 Hours) Vital Signs Temp Pulse Resp BP BP Pulse Ox 09/26/19 15:25 36.6 C 65 18 153/76 H 96 09/26/19 12:53 36.9 C 80 20 168/82 H 96 09/26/19 08:29 36.7 C 70 20 161/84 H 92
[2019-09-26] MEDS: LIDOCAINE 5% 1 PATCH TD SCH (20:04)
[2019-09-26] MEDS ORDERED: LORazepam 0.25 MG/0.5 ML VIAL IV STA (23:36)
[2019-09-26] MEDS ORDERED: LORazepam 2 MG/ML VIAL (IM USE) IM STA (23:37)
[2019-09-26] MEDS ORDERED: HydrALAZINE 10 MG TAB PO PRN (23:39)
[2019-09-27] MEDS: HEPARIN SOD 5,000 UNIT/0.5 ML VIAL SQ SCH (05:34)
[2019-09-27] MEDS: ACETAMINOPHEN 500 MG TAB PO SCH (05:34)
[2019-09-27] MEDS: METOPROLOL SUCC 50MG EXT REL TAB PO SCH (08:52)
[2019-09-27] MEDS: AMLODIPINE BESYLATE 5 MG TAB PO SCH (08:52)
[2019-09-27] MEDS: CLOPIDOGREL BISULFATE 75 MG TAB PO SCH (08:52)
[2019-09-27] MEDS: FERROUS SULFATE 325 MG TAB PO SCH (08:53)
[2019-09-27] MEDS: PANTOprazole 40 MG TAB PO SCH (08:53)
[2019-09-27] MEDS: ASPIRIN 81 MG ECTAB PO SCH (08:53)
[2019-09-27] MEDS ORDERED: ATORVASTATIN 20 MG TAB PO SCH (09:00)
[2019-09-27] MEDS ORDERED: FUROSEMIDE 20 MG TAB PO SCH (09:00)
--- NOTE | 2019-09-27 17:15 | Discharge Summary ---
Date of Service September 27, 2019 Admission HPI Per Admitting Provider This is an 84-year-old male who has significant past medical history of CAD with history of CABG x3 in 1990, chronic A. fib not on oral anticoagulation, chronic diastolic CHF, T2DM, history of CVA, history of ICH in 1998, depression with anxiety, history of nephrolithiasis who presents to [facility] ED after being found lying on floor at apartment complex at [facility]. ROS unreliable from patient. [id number]-mwj at bedside. She last saw patient while approximately 2 months ago and has not talked to them since secondary to, "him being stubborn." He lives alone in independent living apartment complex. Apparently found lying on floor with pillow by building maintenance superintendent. He was incontinent of urine. [place] patient was more confused than baseline. Utrphzva-cr-[id number] reports she has heard over the past several months he has continually declined to become more confused. It is unknown if patient actually fell. He currently denies any acute pain, except when taking deep breath on the right side. There is question to whether or not patient has been adequately caring for himself or taking any of his medications. He denies any f/c/s, chest pain, sob, n/v/d, change in bowel or urinary habits. +Intermittent dry cough and poor sleep. Is upset he does not want to stay in hospital. Records reviewed from [facility]. He is a [facility] patient and was last seen on 09/19 he was sitting up in chair. Apparently has recently been feeling down and depressed and his antidepressant was increased. He received flu shot. It was reported recent increase falls. His medications, and pill pack per [facility] documentation appears to have been taking medications. Principal Diagnosis Generalized weakness/fall/baseline dementia/rib fracture Discharge Exam Constitutional WD/WN, vitals as above no acute distress Eyes PERRL, conjunctivae normal, anicteric sclerae ENMT external ear and nose normal, oropharynx normal Neck trachea midline, no thyromegaly Respiratory no respiratory distress, no labored breathing and no cough Auscultation: no wheezes Cardiovascular RRR, no murmur, no edema Gastrointestinal (Abdomen) normal bowel sounds, soft, nontender, no hepatosplenomegaly Musculoskeletal Extremities: + abnormal strength (Generalized weakness) Skin no rashes, warm and dry Neurologic PERRL, EOMI, accommodation nl, no face palsy, no dysarthria Psychiatric Orientation: alert and oriented to person Discharge Data Allergies Allergy/AdvReac Type Severity Reaction Status Date / Time No Known Allergies Allergy Verified 09/22/19 14:33 Consultations 09/22/19 16:40 ED Decision to Admit Stat 09/22/19 19:44 Consult Case Management - Discharge Planning Routine Ordered Studies 09/22/19 13:44 CT cervical spine wo con Stat CT head/brain wo con Stat Hospital Course (1) Weakness: (2) Encephalopathy: Presented with confusion, metabolic encephalopathy secondary to dehydration acute renal failure Baseline dementia Mental status improved to approximate baseline, Very pleasant oriented to person only no agitation or combativeness noted CT head noncontrast on admission: No acute intracranial abnormality Discussed with patient"s son David Phone number [phone] Patient will do better on returning home with him and his , Patient has been able to walk to the bathroom with minimum assistance, Baseline dementia oriented to person only, no agitation or delirium noted Stable to be discharged home with family members (3) Rhabdomyolysis: Due to fall, unknown duration of lying in the floor Patient was found by electrical maintenance man lying on the floor confused Given IV fluids-CK level returned to baseline Patient continued to improve, observe fall precaution, PT OT eval appreciated Patient has been able to walk independently, with minimum assistance Spoke with patient's son, wants pt to return home with him and his Recommendation/referral made to home health visiting (4) PNA (pneumonia): resolved admitted with Possible pneumonia secondary to aspiration, when patient was obtunded Chest x-ray shows possible basilar atelectasis/infiltration Patient does not have fever, cough, normal white count Normal white cell count Patient was started with IV Unasyn for possible aspiration, Antibiotic discontinued after 48 hours is no conclusive evidence of pneumonia/infection noted (5) Rib fracture: Secondary to recent fall CXR right 7th and 8th lateral rib fx Conservative treatment with pain management, ordered for incentive spirometry Has remained symptomatic has not required any pain medication No cough, no shortness of breath (6) Chronic atrial fibrillation: Rate controlled on metoprolol Not candidate for oral anti-coagulation secondary to fall risk Follows with [facility] cardiology PROLONGED QTC EKG shows QTC prolonged more than 500 Follow daily EKG, avoid medications which can worsening EKG prolongation Monitor electrolytes, K and mag level Potassium above 4, magnesium of 2 to prevent arrhythmia (7) CHF (congestive heart failure): No signs or symptoms of volume overload Lasix is kept on hold for dehydration/elevated CK-has resolved (8) Microscopic hematuria: Frontal episode recommend repeat UA - if persistent refer to urology on outpt basis (9) CAD (coronary artery disease): No complaint of chest pain shortness of breath no angina symptoms Troponin mildly elevated, without any EKG changes suggestive of ischemia continue asa, plavix, BB Statin resumed and CPK level returned back to normal (10) CVA (cerebral vascular accident): hx of CVA; hx of ICH in 1998 no residual deficits on ASA, plavix Continue statin (11) Diabetes: Well-controlled A1C 6.2. carb consistent diet (12) HTN (hypertension): BP stable Patient is continued with Norvasc 5 mg daily, Toprol-XL 50 mg daily (13) Hyperlipidemia: Statin (14) DVT prophylaxis: SCD/TEDS Order for subcu heparin Disposition: Spoke with patient's son, Patient's son David wants to bring his father to his house, Referral made for home health services Patient is stable to be discharged home with his son David Goodman phone number:[phone] Referral made for home health to [facility] Total Time Total Time Spent Total Time Spent (In Minutes): Approximately 35 minutes Total Time Includes: Discharge Planning and Medication Reconciliation Discharge Plan Discharge Items Patient Disposition: Home - Home Health Services Reason For Visit: ENCEPHALOPHATHY, RHABDO Discharge Diagnosis: Generalized weakness/fall/baseline dementia/rib fracture Activity: Resume your previous activity Non-emergency contact: Primary Care Provider Call non-emergency contact if: you have any medication questions Diet: Heart Healthy Addtl Attending Provider Instructions: Hospital follow-up with family physician: Dr. Lenard Sims on 09/29/2019 at 10:45 AM Pending Studies at Discharge: No Stand-Alone Forms: My HealthyTweet, Smoking Cessation Medications and DC Order Prescriptions: Continued atorvastatin 20 mg tablet 20 mg PO DAILY RF: 0 metoprolol succinate 50 mg tablet extended release 24 hr 50 mg PO DAILY RF: 0 clopidogrel 75 mg tablet 75 mg PO DAILY RF: 0 amlodipine 5 mg tablet 5 mg PO DAILY RF: 0 aspirin 81 mg tablet,delayed release (/EC) 81 mg PO DAILY RF: 0 pantoprazole 40 mg tablet,delayed release (DR/EC) 40 mg PO BID RF: 0 ferrous sulfate 325 mg (65 mg iron) tablet 325 mg PO BID RF: 0 furosemide 20 mg tablet 20 mg PO DAILY RF: 0 escitalopram oxalate 20 mg tablet 20 mg PO DAILY RF: 0 Discharge Orders: Discharge Order (Routine); Ordered 09/27/19 Ordered By: Agustina Blood Admission Data Admit Date/Time: 09/22/19 17:36 Attending Provider: Agustina Blood Admit Provider: Yvonne Ching Primary Care Provider: Mian Perea Other Providers: Yvonne Ching ; Tushar Kincaid Other Interventions: Discharge Summary Assessment (RN) Last Done: 09/27/19 10:28 DC Date/Time DO NOT enter until pt leaves facility: 09/27/19 13:23
== END 2019-09-27 13:23 | disposition home health service (06) | DRG 557 ==
LOC: ED 12:33 → SUATTDRO 17:36 → 2S 17:36 → 2N 09-23 14:26 → 4W 09-26 21:52